=== PATIENT | male | born 1980 | race Caucasian/White ===

== ENCOUNTER 2023-03-26 08:47 | Inpatient (IN) | payer MEDICAID, SELFPAY ==
[2023-03-26] VITALS (37 sets, daily range): BP systolic 120–166; BP diastolic 81–119; PULSE 120–142; RESP 16–26; TEMP 36.2–37; O2SAT 93–98; BMI 32.6; BMI 32.8
--- NOTE | 2023-03-26 09:13 | ED.SOB ---
HPI - SOB/Dyspnea General Time Seen by Provider: 09:13 Date Seen: 03/26/23 Chief Complaint: Shortness of Breath/Dyspnea Stated Complaint: numbness waist down / shortness of breath Time Seen by Provider: 03/26/23 09:13 Source: patient and RN notes reviewed Mode of arrival: ambulatory Limitations: no limitations History of Present Illness HPI Narrative: Kannan is a very pleasant 42-year-old male with past history of heavy alcohol use frequent exposure to ticks who comes to the emergency room with increasing abdominal and lower extremity edema. Patient states that he awoke on Sunday morning which is 48 hours ago with swelling from his sternum down. He notes that his feet are 3 times the normal size and that his belly is quite bag. He has some discomfort around his ribcage. He gets extremely short of breath with any movement. Patient agrees that his has told him that he looks somewhat yellow. He has had no history of liver or kidney problems in the past. He denies chest pain but states that he is quite short of breath with any movement. He has not had fever or chills. He notes that he has been drinking quite a bit but urinating minimally. Denies pain with urination. This morning he started experiencing some diarrhea. He notes that occasionally has a beer but 3 years ago he was drinking heavily. Never experienced any withdrawal symptoms or seizure per his report. Related Data Home Medications Medication Instructions Recorded Confirmed No Known Home Medications 03/26/23 03/26/23 Allergies Allergy/AdvReac Type Severity Reaction Status Date / Time erythromycin base Allergy Mild full body Verified 03/26/23 13:39 hives,rashes Review of Systems Status of ROS: Reports: 10 or more systems reviewed and unremarkable except as noted in History and below Const: Reports: fatigue; Denies: fever or chills Eyes: Denies: change in vision ENMT: Denies: neck pain, difficulty swallowing or hoarseness Cardio: Reports: swelling of feet/ankles and shortness of breath with exertion; Denies: chest pain or palpitations Resp: Reports: shortness of breath; Denies: cough GI: Reports: abdominal pain (Tightness), nausea and diarrhea; Denies: vomiting or difficulty swallowing : Reports: decreased urine ouput; Denies: painful urination Musculo: Reports: back pain and extremity swelling; Denies: neck pain Integ/Breast: Denies: rash Neuro: Denies: headache or numbness in extremities Endo: Reports: fatigue [facility] Medical History (Updated 03/26/23 @ 14:57 by Rocky Dorsey MD) Hyponatremia ?E87.1 - Hypo-osmolality and hyponatremia (ICD-10) Alcohol use disorder ?F10.90 - Alcohol use, unspecified, uncomplicated (ICD-10) Elevated blood pressure reading ?R03.0 - Elevated blood-pressure reading, without diagnosis of hypertension (ICD-10) History of alcohol abuse ?F10.11 - Alcohol abuse, in remission (ICD-10) Surgical History (Updated 03/26/23 @ 14:04 by Charissa Hernandez MD) No history of previous surgery Family History (Updated 03/26/23 @ 14:46 by Rocky Dorsey MD) Other Cardiovascular disease Social History (Updated 03/26/23 @ 14:47 by Rocky Dorsey MD) Narrative: He lives with his and 2 children, ages 17 and 15, in [place]. 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 This spring he gave up on the physical labor of [employer] and lawn care. He does not smoke. He reports that formally he was a heavy consumer of alcohol and this became a problem for him so he quit 3 years ago. Some uncertainty as to when he resumed drinking and how much he resumed drinking in the past year What is your current living situation?: I presently have a place to live Problems where you live: no known problems Problems where you live details: NA In the past 12 months, utilities in danger of being shut off: no In the past 12 mos, have been you worried that your food would run out before you had money to buy more?: never true In the past 12 mos, the food you bought just didn't last and you didn't have money to buy more?: never true Highest level of school completed/degree received: some college, no degree Smoking Status: Never smoker How often do you have a drink containing alcohol: 2-3 times a week Alcohol type: other Alcohol type details: bud zero (no alcohol content) How many standard drinks containing alcohol do you have on a typical day: 1 or 2 How often do you have six or more drinks on one occasion: Never AUDIT-C Alcohol total score: 3 Non-prescribed substance use: denies use How often does anyone, including family, friends and others, physically hurt you: never How often does anyone, including family, friends and others, insult or talk down to you: never How often does anyone, including family, friends and others, threaten you with harm: never How often does anyone, including family, friends and others, scream or curse at you: never Exam Narrative: Exam Narrative: Kannan is a very pleasant gentleman. He is in room 3. Sinus tachycardia is noted on the monitor. He is oxygenating well. Head is atraumatic normocephalic. Patient has scleral icterus and yellowing of the skin. EOM is full and pupils are equal round reactive. Oral cavity with moist mucous membranes. Neck is supple without lymphadenopathy. Heart with a tachycardic rate but normal rhythm. Lungs are with decreased sounds in the bases bilaterally. Abdomen is protrude warrant it is firm. No significant tenderness. Lower extremities with 3+ edema. No erythema noted. Const: Vital Signs, click to edit/add: Vital Signs - 24 hr 03/26/23 08:54 03/26/23 09:52 03/26/23 10:00 Temperature 97.1 F L Pulse Rate 131 H 127 H Pulse Rate [Right Pulse Oximeter] 134 H Respiratory Rate 26 H Blood Pressure Blood Pressure [Le ft Arm] Blood Pressure [Ri ght Upper Arm] 151/102 H Pulse Oximetry 96 96 96 Oxygen Delivery Me thod Room Air 03/26/23 10:02 03/26/23 10:15 03/26/23 10:21 Temperature Pulse Rate 127 H 131 H 129 H Pulse Rate [Right Pulse Oximeter] Respiratory Rate Blood Pressure 160/115 H 160/115 H Blood Pressure [Le ft Arm] Blood Pressure [Ri ght Upper Arm] Pulse Oximetry 95 95 93 Oxygen Delivery Me thod 03/26/23 10:30 03/26/23 10:42 03/26/23 10:45 Temperature Pulse Rate 126 H 130 H 127 H Pulse Rate [Right Pulse Oximeter] Respiratory Rate Blood Pressure 166/119 H Blood Pressure [Le ft Arm] Blood Pressure [Ri ght Upper Arm] Pulse Oximetry 95 96 96 Oxygen Delivery Me thod 03/26/23 11:09 03/26/23 11:13 08/21/23 11:15 Temperature Pulse Rate 125 H 128 H Pulse Rate [Right Pulse Oximeter] Respiratory Rate Blood Pressure 154/113 H Blood Pressure [Le ft Arm] Blood Pressure [Ri ght Upper Arm] Pulse Oximetry 97 96 Oxygen Delivery Me thod 03/26/23 11:21 03/26/23 11:32 03/26/23 11:45 Temperature Pulse Rate 131 H 142 H 137 H Pulse Rate [Right Pulse Oximeter] Respiratory Rate Blood Pressure 160/113 H Blood Pressure [Le ft Arm] Blood Pressure [Ri ght Upper Arm] Pulse Oximetry 95 97 96 Oxygen Delivery Me thod 03/26/23 11:46 03/26/23 12:00 03/26/23 12:04 Temperature Pulse Rate 138 H 133 H 139 H Pulse Rate [Right Pulse Oximeter] Respiratory Rate Blood Pressure 151/105 H Blood Pressure [Le ft Arm] Blood Pressure [Ri ght Upper Arm] Pulse Oximetry 96 98 95 Oxygen Delivery Me thod 03/26/23 12:15 03/26/23 12:25 03/26/23 12:30 Temperature Pulse Rate 137 H 142 H 137 H Pulse Rate [Right Pulse Oximeter] Respiratory Rate Blood Pressure Blood Pressure [Le ft Arm] Blood Pressure [Ri ght Upper Arm] Pulse Oximetry 97 96 96 Oxygen Delivery Me thod 03/26/23 12:41 03/26/23 12:45 03/26/23 13:00 Temperature Pulse Rate 135 H 130 H 136 H Pulse Rate [Right Pulse Oximeter] Respiratory Rate Blood Pressure 137/105 H Blood Pressure [Le ft Arm] Blood Pressure [Ri ght Upper Arm] Pulse Oximetry 94 96 96 Oxygen Delivery Me thod 03/26/23 13:05 03/26/23 13:15 03/26/23 13:25 Temperature Pulse Rate 138 H 138 H 139 H Pulse Rate [Right Pulse Oximeter] Respiratory Rate Blood Pressure Blood Pressure [Le ft Arm] Blood Pressure [Ri ght Upper Arm] Pulse Oximetry 96 96 96 Oxygen Delivery Me thod 03/26/23 13:30 03/26/23 13:44 03/26/23 13:45 Temperature Pulse Rate 138 H 132 H 133 H Pulse Rate [Right Pulse Oximeter] Respiratory Rate Blood Pressure Blood Pressure [Le ft Arm] Blood Pressure [Ri ght Upper Arm] Pulse Oximetry 96 95 95 Oxygen Delivery Me thod 03/26/23 14:00 03/26/23 14:37 03/26/23 15:00 Temperature 98.1 F 98.1 F Pulse Rate 135 H Pulse Rate [Right Pulse Oximeter] 140 H 140 H Respiratory Rate 18 18 Blood Pressure Blood Pressure [Le ft Arm] 130/99 H 130/99 H Blood Pressure [Ri ght Upper Arm] Pulse Oximetry 94 97 97 Oxygen Delivery Me thod Room Air Room Air Documenting provider has reviewed patient's vital signs: yes Course Course Hospital Course: Patient is worrisome for hepatic and renal failure. At this time will place IV and labs will be checked to include CBC, comprehensive, direct bilirubin, CRP, urinalysis. Patient will be continued on the monitoring tech. Nursing staff has also added Lyme and tick panel. Reevaluation(s) Reevaluation #1: Patient noted to have reassuring creatinine but markedly elevated liver function tests. Will give patient 80 mg IV Lasix and ordered CT chest abdomen pelvis CT with contrast. Reevaluation #2: Patient noted to have 4 quadrant ascites and cirrhosis of the liver. No other masses are noted. Left-sided pleural effusion. At this time is consult id to obtain sample of ascites. Thereafter will start ceftriaxone. Patient noted to be urinating and it seems to actually have improvement of lower extremity edema. His heart rate and blood pressure remain elevated and although he is mentating normally this may be an aspect of alcohol withdrawal and therefore will give him Ativan 1 mg IV. Vital Signs Vital signs: Initial Vital Signs Respiratory Effort Normal, Spontaneous, Short of Breath 03/26/23 08:50 Respiratory Depth Normal 03/26/23 08:50 Vital Signs Temperature 97.1 F L 03/26/23 08:54 Pulse Rate 134 H 03/26/23 08:54 Respiratory Rate 26 H 03/26/23 08:54 Blood Pressure 151/102 H 03/26/23 08:54 Pulse Oximetry 96 03/26/23 08:54 Oxygen Delivery Method Room Air 03/26/23 08:54 Temperature 98.1 F 03/26/23 16:17 Pulse Rate 140 H 03/26/23 16:17 Respiratory Rate 18 03/26/23 16:17 Blood Pressure 130/99 H 03/26/23 16:17 Pulse Oximetry 97 03/26/23 16:17 Oxygen Delivery Method Room Air 03/26/23 16:17 MDM - SOB/Dyspnea MDM Narrative Medical decision making narrative: 1. Alcoholic hepatitis-liver function tests are elevated and direct bilirubin is as well. Patient gives variable account of his alcohol use over the past couple years but I think that we do understand that it is likely been high. He does state that he had 8-10 alcoholic drinks every day last week. Patient maintains an elevated heart rate as well as high blood pressure. Will given 1 mg of Ativan as I am concerned this may be wrapped representing some withdrawal. Patient is jaundiced at this time. 2. Abdominal ascites-elevated white count of greater than 19,000. No significant abdominal discomfort and patient does not present with a fever but of course bacterial peritonitis is of concern. Surgical consult with who was able to obtain a small sample. 2 g of ceftriaxone given in the emergency room. Cell count, Gram stain, culture, LDH, amylase, protein, glucose currently pending. 3. Lower extremity edema-likely from hepatitis. Patient is given Lasix 80 mg IV. Has been urinating. 4. Disposition-admit to [facility] under the care of Dr. Kenneth Dorsey, hospitalist Lab Data Attestation: I reviewed the patient's lab results. Labs: Lab Results 03/26/23 03/26/23 03/26/23 Range/Units 09:16 09:22 12:52 WBC 19.20 H (4.50-11.00) K/uL RBC 3.41 L (4.30-5.90) m/uL Hgb 12.7 L (13.5-17.5) gm/dL Hct 36.6 L (37.0-53.0) % MCV 107 H (80-100) fL MCH 37 H (26-34) pg MCHC 35 (32-36) gm/dL RDW Coeff of Ellen 16.5 H (11.5-15.5) % Plt Count 621 H (140-440) K/uL Neut % (Auto) 86.0 H (42.0-72.0) % Lymph % (Auto) 6.1 L (20-44) % [place] % (Auto) 5.8 (0.0-11.0) % Eos % (Auto) 0.1 (0.0-7.0) % Baso % (Auto) 0.2 (0.0-3.0) % Neut # (Auto) 16.50 H (1.7-7.0) K/uL Lymph # (Auto) 1.20 (0.90-2.90) K/uL [place] # (Auto) 1.10 H (0.00-0.90) K/UL Eos # (Auto) 0.00 (0.00-0.50) K/uL Baso # (Auto) 0.00 (0.00-0.30) K/uL Abs Immat Gran (auto) 0.30 (0.00-0.30) K/uL Imm/Tot Granulo (auto) 1.8 % Sodium 127 L (135-149) mmol/L Potassium 4.1 (3.6-5.1) mmol/L Chloride 91 L (96-114) mmol/L Carbon Dioxide 23 (20-32) mmol/L Anion Gap 13 (7-15) mEq/L BUN 6 (5-24) mg/dL Creatinine 0.7 (0.5-1.5) mg/dL Estimated Creat Clear 162.63 Estimated GFR 117 ml/min Glucose 100 (60-115) mg/dL Lactate 3.0 H (0.5-1.9) mmol/L Magnesium 1.8 (1.5-2.6) mg/dL Total Bilirubin 9.3 H (0.1-1.5) mg/dL Direct Bilirubin 7.6 H (0.0-0.5) mg/dL AST 419 H (12-35) U/L ALT 104 H (4-50) U/L Alkaline Phosphatase 551 H (40-150) U/L C-Reactive Protein 7.7 H (0.5-1.0) mg/dL NT-Pro-B Natriuret Pep 193 pg/mL Total Protein 6.8 (6.0-8.3) g/dL Albumin 3.2 L (3.3-5.0) g/dL Lipase 85 (23-300) U/L Fluid Volume Fluid Color Fluid Appearance Fluid WBC Cells/uL Fluid RBC Cells/uL Fluid Polynuclear WBCs % Fluid Mononuclear WBCs % Fluid Glucose mg/dL Fluid Total Protein gm/dL Fluid Albumin gm/dL Fluid LDH U/L Fluid Amylase U/L Ur Drug Screen Comment Ethyl Alcohol < 0.01 L (0.01-0.03) % Lab Acknowledgement POC Troponin I 0.01 (0.01-0.04) ng/ml 03/26/23 03/26/23 03/26/23 Range/Units 13:05 13:45 15:30 WBC (4.50-11.00) K/uL RBC (4.30-5.90) m/uL Hgb (13.5-17.5) gm/dL Hct (37.0-53.0) % MCV (80-100) fL MCH (26-34) pg MCHC (32-36) gm/dL RDW Coeff of Ellen (11.5-15.5) % Plt Count (140-440) K/uL Neut % (Auto) (42.0-72.0) % Lymph % (Auto) (20-44) % [place] % (Auto) (0.0-11.0) % Eos % (Auto) (0.0-7.0) % Baso % (Auto) (0.0-3.0) % Neut # (Auto) (1.7-7.0) K/uL Lymph # (Auto) (0.90-2.90) K/uL [place] # (Auto) (0.00-0.90) K/UL Eos # (Auto) (0.00-0.50) K/uL Baso # (Auto) (0.00-0.30) K/uL Abs Immat Gran (auto) (0.00-0.30) K/uL Imm/Tot Granulo (auto) % Sodium (135-149) mmol/L Potassium (3.6-5.1) mmol/L Chloride (96-114) mmol/L Carbon Dioxide (20-32) mmol/L Anion Gap (7-15) mEq/L BUN (5-24) mg/dL Creatinine (0.5-1.5) mg/dL Estimated Creat Clear Estimated GFR ml/min Glucose (60-115) mg/dL Lactate (0.5-1.9) mmol/L Magnesium (1.5-2.6) mg/dL Total Bilirubin (0.1-1.5) mg/dL Direct Bilirubin (0.0-0.5) mg/dL AST (12-35) U/L ALT (4-50) U/L Alkaline Phosphatase (40-150) U/L C-Reactive Protein (0.5-1.0) mg/dL NT-Pro-B Natriuret Pep pg/mL Total Protein (6.0-8.3) g/dL Albumin (3.3-5.0) g/dL Lipase (23-300) U/L Fluid Volume 9 Fluid Color Xanthochromic A Fluid Appearance Cloudy A Fluid WBC 100 Cells/uL Fluid RBC 4000 Cells/uL Fluid Polynuclear WBCs 31 % Fluid Mononuclear WBCs 69 % Fluid Glucose 91 mg/dL Fluid Total Protein < 2.0 gm/dL Fluid Albumin < 1.0 gm/dL Fluid LDH 81 U/L Fluid Amylase < 30 U/L Ur Drug Screen Comment See Note Ethyl Alcohol (0.01-0.03) % Lab Acknowledgement Test Added POC Troponin I (0.01-0.04) ng/ml Imaging Data CT Chest/Ab/Pelvis: Attestation: I have reviewed the pertinent imaging results. Radiologist's impression: ungs and pleura: Small dependent low-density left pleural effusion associated with compressive atelectasis of the posterior segment of the left lower lobe. No effusions, thickening, or pneumothorax. Heart and vasculature: Heart size is normal. Thoracic aorta and pulmonary artery are normal in caliber. Lymph node/mediastinum: No mediastinal, hilar, or axillary adenopathy. Chest wall: Normal. Bones: No suspicious bone lesions. ABDOMEN AND PELVIS: Liver: Hepatomegaly. Diffuse low attenuation of the hepatic parenchyma consistent with steatosis. Differential diagnostic considerations include early cirrhosis. No suspicious focal lesion. Gallbladder and bile ducts: Unremarkable. Pancreas: Unremarkable. Spleen: Normal in caliber. No masses. Calcified splenic granuloma and accessory splenule. Adrenal glands: Unremarkable. No masses. Kidneys: Normal in caliber. No suspicious masses. GI tract: Normal in caliber and appearance. No sign of mass or inflammation. Vasculature: Unremarkable. Mesenteric arteries are patent. Lymph nodes: Clustered common hepatic and periportal lymph nodes are consistent with nonspecific lymphadenopathy. Omentum/peritoneum/retroperitoneum/abdominal wall: Small volume four-quadrant abdominopelvic ascites. Direct fat and fluid containing right inguinal hernia. Pelvic organs: Unremarkable. Bones: No suspicious bone lesions. IMPRESSION: Hepatomegaly, diffuse hepatic steatosis, small volume four-quadrant ascites. These findings may represent early cirrhosis. No focal liver lesion is identified. Incidental findings described above including a small direct fat and fluid containing right inguinal hernia. Fluid within the hernia sac is considered to be due to communication between the hernia sac and the ascites in the abdominopelvic peritoneal space. ECG Data Attestation: I personally reviewed and interpreted this ECG as follows: ECG interpretation date: 03/26/23 Interpretation: By my read EKG shows sinus tachycardia at 0124. I do not note any acute ST or T-wave changes. Discharge Plan Discharge Patient Disposition: Admitted As Inpatient
[2023-03-26 09:30] LABS: Troponin, Point-of-Care* 0.01 ng/ml (0.01-0.04)
[2023-03-26 09:45] LABS: Basophils Percent Auto 0.2 % (0.0-3.0); Eosinophils Percent Auto 0.1 % (0.0-7.0); Hematocrit 36.6 % (37.0-53.0); Hemoglobin* 12.7 gm/dL (13.5-17.5); Immature Granulocytes Pct Auto 1.8 %; Lymphocytes Percent Auto 6.1 % (20-44); Mean Corpuscular HGB Conc 35 gm/dL (32-36); Mean Corpuscular Hemoglobin 37 pg (26-34); Mean Corpuscular Volume 107 fL (80-100); Monocytes Percent Auto 5.8 % (0.0-11.0); Platelet Count* 621 K/uL (140-440); RDW Coefficient of Variation % 16.5 % (11.5-15.5); Red Blood Count 3.41 m/uL (4.30-5.90)
[2023-03-26 09:47] LABS: Slide Review Reflex No
[2023-03-26 09:59] LABS: Albumin* 3.2 g/dL (3.3-5.0); Chloride* 91 mmol/L (96-114); Sodium* 127 mmol/L (135-149)
[2023-03-26 10:00] LABS: Potassium* 4.1 mmol/L (3.6-5.1)
[2023-03-26 10:01] LABS: Creatinine* 0.7 mg/dL (0.5-1.5); Est. Creatinine Clearance* 162.63; Estimated Glomerular Filt Rate 117 ml/min
[2023-03-26 10:02] LABS: Alkaline Phosphatase* 551 U/L (40-150); Aspartate Amino Transferase* 419 U/L (12-35); Bilirubin Direct* 7.6 mg/dL (0.0-0.5); Bilirubin Total* 9.3 mg/dL (0.1-1.5); Blood Urea Nitrogen* 6 mg/dL (5-24); Carbon Dioxide* 23 mmol/L (20-32); Lipase* 85 U/L (23-300); Total Protein* 6.8 g/dL (6.0-8.3)
[2023-03-26 10:03] LABS: Alanine Aminotransferase* 104 U/L (4-50); Glucose* 100 mg/dL (60-115)
[2023-03-26 10:05] LABS: C Reactive Protein* 7.7 mg/dL (0.5-1.0)
[2023-03-26 10:10] LABS: Ethanol* < 0.01 % (0.01-0.03)
--- NOTE | 2023-03-26 10:30 | CRLHL7_ITS ---
For Patients: As a result of the Century Cures Act, medical imaging exams and procedure reports are released immediately into your electronic medical record. You may view this report before your referring provider. If you have questions, please contact your health care provider. INDICATION: Jaundice, abdominal distention. Shortness of breath. TECHNIQUE: CT chest, abdomen and pelvis acquired with 128 cc Isovue 370 IV contrast. COMPARISON: None. FINDINGS: CHEST Lungs and pleura: Small dependent low-density left pleural effusion associated with compressive atelectasis of the posterior segment of the left lower lobe. No effusions, thickening, or pneumothorax. Heart and vasculature: Heart size is normal. Thoracic aorta and pulmonary artery are normal in caliber. Lymph node/mediastinum: No mediastinal, hilar, or axillary adenopathy. Chest wall: Normal. Bones: No suspicious bone lesions. ABDOMEN AND PELVIS: Liver: Hepatomegaly. Diffuse low attenuation of the hepatic parenchyma consistent with steatosis. Differential diagnostic considerations include early cirrhosis. No suspicious focal lesion. Gallbladder and bile ducts: Unremarkable. Pancreas: Unremarkable. Spleen: Normal in caliber. No masses. Calcified splenic granuloma and accessory splenule. Adrenal glands: Unremarkable. No masses. Kidneys: Normal in caliber. No suspicious masses. GI tract: Normal in caliber and appearance. No sign of mass or inflammation. Vasculature: Unremarkable. Mesenteric arteries are patent. Lymph nodes: Clustered common hepatic and periportal lymph nodes are consistent with nonspecific lymphadenopathy. Omentum/peritoneum/retroperitoneum/abdominal wall: Small volume four-quadrant abdominopelvic ascites. Direct fat and fluid containing right inguinal hernia. Pelvic organs: Unremarkable. Bones: No suspicious bone lesions. IMPRESSION: Hepatomegaly, diffuse hepatic steatosis, small volume four-quadrant ascites. These findings may represent early cirrhosis. No focal liver lesion is identified. Incidental findings described above including a small direct fat and fluid containing right inguinal hernia. Fluid within the hernia sac is considered to be due to communication between the hernia sac and the ascites in the abdominopelvic peritoneal space. Please note that all CT scans at this facility use dose modulation, iterative reconstruction, and/or weight-based dosing when appropriate to reduce radiation dose to as low as reasonably achievable. Dictated by Jaime Simmons MD @ 03/26/2023 11:52:39 AM (Electronically Signed)
[2023-03-26] MEDS: FUROSEMIDE 10 MG/ML inj 80 MG IVP (11:13)
[2023-03-26 11:21] LABS: Anion Gap 13 mEq/L (7-15)
[2023-03-26] MEDS: LORazepam 2 MG/ML inj 1 MG IVP (12:50)
--- NOTE | 2023-03-26 13:19 | P.GSCN_ITS ---
History of Present Illness Consult details Date Seen: 03/26/23 Consult date: 03/26/23 Narrative: The patient is a 42-year-old male who presents to the emergency department with lower extremity edema and abdominal swelling which has been going on for 2 days. He states that he woke up on Sunday morning with swollen feet. He noted that his stomach was swollen and hard. He had no appetite or energy. He states that it was hard to breathe and so he came in to be seen. He has a history of heavy alcohol use but states that he is not drinking anymore. He has never had anything like this before. He has again no appetite. He had diarrhea today but had been having normal bowel movements up until now. He has not been eating since Sunday, only drinking water. [facility] Medical History (Updated 03/26/23 @ 14:04 by Charissa Hernandez MD) History of alcohol abuse ?F10.11 - Alcohol abuse, in remission (ICD-10) Surgical History (Updated 03/26/23 @ 14:04 by Charissa Hernandez MD) No history of previous surgery Meds Home Medications and Allergies Home Medications Medication Instructions Recorded Confirmed Type No Known Home Medications 03/26/23 03/26/23 History Allergies Allergy/AdvReac Type Severity Reaction Status Date / Time erythromycin base Allergy Mild full body Verified 03/26/23 13:39 hives,rashes Exam Narrative: Exam Narrative: General: No acute distress HEENT: Scleral icterus noted CV: Tachycardic but regular Respiratory: Breathing appears nonlabored Abdomen: Protuberant. No scars. Nontender to palpation. Extremities: Bilateral lower extremities with pitting edema Const: Vital Signs, click to edit/add: Vital Signs - 24 hr 03/26/23 08:54 03/26/23 09:52 03/26/23 10:00 Temperature 97.1 F L Pulse Rate 131 H 127 H Pulse Rate [Right Pulse Oximeter] 134 H Respiratory Rate 26 H Blood Pressure Blood Pressure [Ri ght Upper Arm] 151/102 H Pulse Oximetry 96 96 96 Oxygen Delivery Me thod Room Air 03/26/23 10:02 03/26/23 10:15 03/26/23 10:21 Temperature Pulse Rate 127 H 131 H 129 H Pulse Rate [Right Pulse Oximeter] Respiratory Rate Blood Pressure 160/115 H 160/115 H Blood Pressure [Ri ght Upper Arm] Pulse Oximetry 95 95 93 Oxygen Delivery Me thod 03/26/23 10:30 03/26/23 10:42 03/26/23 10:45 Temperature Pulse Rate 126 H 130 H 127 H Pulse Rate [Right Pulse Oximeter] Respiratory Rate Blood Pressure 166/119 H Blood Pressure [Ri ght Upper Arm] Pulse Oximetry 95 96 96 Oxygen Delivery Me thod 03/26/23 11:09 03/26/23 11:13 03/26/23 11:15 Temperature Pulse Rate 125 H 128 H Pulse Rate [Right Pulse Oximeter] Respiratory Rate Blood Pressure 154/113 H Blood Pressure [Ri ght Upper Arm] Pulse Oximetry 97 96 Oxygen Delivery Me thod 03/26/23 11:21 03/26/23 11:32 03/26/23 11:45 Temperature Pulse Rate 131 H 142 H 137 H Pulse Rate [Right Pulse Oximeter] Respiratory Rate Blood Pressure 160/113 H Blood Pressure [Ri ght Upper Arm] Pulse Oximetry 95 97 96 Oxygen Delivery Me thod 03/26/23 11:46 03/26/23 12:00 03/26/23 12:04 Temperature Pulse Rate 138 H 133 H 139 H Pulse Rate [Right Pulse Oximeter] Respiratory Rate Blood Pressure 151/105 H Blood Pressure [Ri ght Upper Arm] Pulse Oximetry 96 98 95 Oxygen Delivery Me thod 03/26/23 12:15 03/26/23 12:25 03/26/23 12:30 Temperature Pulse Rate 137 H 142 H 137 H Pulse Rate [Right Pulse Oximeter] Respiratory Rate Blood Pressure Blood Pressure [Ri ght Upper Arm] Pulse Oximetry 97 96 96 Oxygen Delivery Me thod 03/26/23 12:41 03/26/23 12:45 03/26/23 13:00 Temperature Pulse Rate 135 H 130 H 136 H Pulse Rate [Right Pulse Oximeter] Respiratory Rate Blood Pressure 137/105 H Blood Pressure [Ri ght Upper Arm] Pulse Oximetry 94 96 96 Oxygen Delivery Me thod 03/26/23 13:05 03/26/23 13:15 Temperature Pulse Rate 138 H 138 H Pulse Rate [Right Pulse Oximeter] Respiratory Rate Blood Pressure Blood Pressure [Ri ght Upper Arm] Pulse Oximetry 96 96 Oxygen Delivery Me thod Results Labs Labs: Abnormal lab results 03/26/23 03/26/23 Range/Units 09:16 12:52 WBC 19.20 H (4.50-11.00) K/uL RBC 3.41 L (4.30-5.90) m/uL Hgb 12.7 L (13.5-17.5) gm/dL Hct 36.6 L (37.0-53.0) % MCV 107 H (80-100) fL MCH 37 H (26-34) pg RDW Coeff of Ellen 16.5 H (11.5-15.5) % Plt Count 621 H (140-440) K/uL Neut % (Auto) 86.0 H (42.0-72.0) % Lymph % (Auto) 6.1 L (20-44) % Neut # (Auto) 16.50 H (1.7-7.0) K/uL [place] # (Auto) 1.10 H (0.00-0.90) K/UL Sodium 127 L (135-149) mmol/L Chloride 91 L (96-114) mmol/L Lactate 3.0 H (0.5-1.9) mmol/L Total Bilirubin 9.3 H (0.1-1.5) mg/dL Direct Bilirubin 7.6 H (0.0-0.5) mg/dL AST 419 H (12-35) U/L ALT 104 H (4-50) U/L Alkaline Phosphatase 551 H (40-150) U/L C-Reactive Protein 7.7 H (0.5-1.0) mg/dL Albumin 3.2 L (3.3-5.0) g/dL Ethyl Alcohol < 0.01 L (0.01-0.03) % Diabetes panel 03/26/23 Range/Units 09:16 Sodium 127 L (135-149) mmol/L Potassium 4.1 (3.6-5.1) mmol/L Chloride 91 L (96-114) mmol/L Carbon Dioxide 23 (20-32) mmol/L BUN 6 (5-24) mg/dL Creatinine 0.7 (0.5-1.5) mg/dL Glucose 100 (60-115) mg/dL AST 419 H (12-35) U/L ALT 104 H (4-50) U/L Alkaline Phosphatase 551 H (40-150) U/L Total Protein 6.8 (6.0-8.3) g/dL Albumin 3.2 L (3.3-5.0) g/dL Calcium panel 03/26/23 Range/Units 09:16 Albumin 3.2 L (3.3-5.0) g/dL Pituitary panel 03/26/23 Range/Units 09:16 Sodium 127 L (135-149) mmol/L Potassium 4.1 (3.6-5.1) mmol/L Chloride 91 L (96-114) mmol/L Carbon Dioxide 23 (20-32) mmol/L BUN 6 (5-24) mg/dL Creatinine 0.7 (0.5-1.5) mg/dL Glucose 100 (60-115) mg/dL Adrenal panel 03/26/23 Range/Units 09:16 Sodium 127 L (135-149) mmol/L Potassium 4.1 (3.6-5.1) mmol/L Chloride 91 L (96-114) mmol/L Carbon Dioxide 23 (20-32) mmol/L BUN 6 (5-24) mg/dL Creatinine 0.7 (0.5-1.5) mg/dL Glucose 100 (60-115) mg/dL Total Bilirubin 9.3 H (0.1-1.5) mg/dL AST 419 H (12-35) U/L ALT 104 H (4-50) U/L Alkaline Phosphatase 551 H (40-150) U/L Total Protein 6.8 (6.0-8.3) g/dL Albumin 3.2 L (3.3-5.0) g/dL All other labs normal. Imaging Additional studies: IMPRESSION: Hepatomegaly, diffuse hepatic steatosis, small volume four-quadrant ascites. These findings may represent early cirrhosis. No focal liver lesion is identified. Incidental findings described above including a small direct fat and fluid containing right inguinal hernia. Fluid within the hernia sac is considered to be due to communication between the hernia sac and the ascites in the abdominopelvic peritoneal space. Please note that all CT scans at this facility use dose modulation, iterative reconstruction, and/or weight-based dosing when appropriate to reduce radiation dose to as low as reasonably achievable. Dictated by Jaime Simmons MD @ 03/26/2023 11:52:39 AM Assessment and Plan Assessment and plan (1) Ascites: Status: Acute (2) Liver failure: Status: Acute (3) History of alcohol abuse: Status: Acute Plan The patient is a 42-year-old male with new onset liver failure. Septic type picture concerning for spontaneous bacterial peritonitis. He has a very small window for paracentesis. This was performed today with ultrasound guidance. Fluid sent for culture and cytology. Patient to be admitted to hospitalist for further cares. General Surgery Procedures Paracentesis Time out performed: Yes Imaging guidance used: Yes Indication: possible spontaneous bacterial peritonitis Procedure: diagnostic paracentesis Location: RLQ Local anesthetic used: lidocaine 1% Amount of anesthesia used (ml): 5 Bedside ultrasound used: yes, real-time guidance Preparation: sterile prep and drape Amount of fluid obtained (ml): 10 Fluid: clear and sent to lab for analysis Size of needle used: 23 Post procedure exam: awake, alert Patient tolerated procedure: well Complications: none Additional comments: Only a small pocket was noted in the right lower quadrant. Real-time ultrasound was used to watch the needle advance through the subcutaneous tissue into the fluid pocket. 10 mL of fluid was aspirated. The procedure was then terminated.
[2023-03-26 13:34] LABS: INR 1.04 (0.91-1.10); Prothrombin Time 14.2 Seconds
[2023-03-26 13:40] LABS: Magnesium* 1.8 mg/dL (1.5-2.6)
[2023-03-26] MEDS: cefTRIAXone 2 GM in 0.9 % SODIUM CHLORIDE Mini-bag 100 ML IVPB (14:22)
--- NOTE | 2023-03-26 14:31 | PM.IMHP1 ---
Hospitalist- H&P: HPI History of Present Illness Date Seen: 03/26/23 Chief complaint: numbness waist down / shortness of breath Narrative: Kannan Wei is a 42 year old male presents to the emergency room with acute onset of abdominal distension, jaundice and lower extremity edema for the last 2 days. Patient reports he was in his usual state of health until he woke up Sunday morning, 2 days ago. He noted had quite a bit of abdominal distension and both legs were very swollen. He denies pain in his legs or abdomen but does report a pressure sensation or fullness. He has not had any vomiting. He has not had anything to eat since Sunday evening. He is drinking some fluids however. He has not had a fever. He reports his bowels are normal without diarrhea, constipation, melena, hematochezia. He also reports worsening dyspnea with any exertion and very poor exercise tolerance. Not having exertional chest pain. His has noted that his skin is turning yellow. He has a history of heavy alcohol use up until 3 years ago. At that time he reports he quit drinking completely. He told the emergency room physician that he has been abstinent until recently he has picked up heavy drinking again. He has had no alcohol to drink since Sunday. He reported to me that he has been drinking moderately, 2-3 drinks per day for the last year. He told me he has not been drinking heavily recently. He denies a history of alcohol withdrawal. He has had no other history of a liver disease. No history of DVT. No history of heart failure or heart disease. He has mild asthma but no other history of lung disease. No history of gastrointestinal or abdominal problems. No urinary problems. Review of Systems Narrative: Patient reports that he has had progressive fatigue and weakness for some time. He works in [employer] and gave up doing the physical work of [employer] this spring because it was too hard. Reports no other recent illness except as noted above. He has not been hospitalized. He has had a history of high blood pressure but has not been treated for it. [facility] Medical History (Updated 03/26/23 @ 14:57 by Rocky Dorsey MD) Hyponatremia ?E87.1 - Hypo-osmolality and hyponatremia (ICD-10) Alcohol use disorder ?F10.90 - Alcohol use, unspecified, uncomplicated (ICD-10) Elevated blood pressure reading ?R03.0 - Elevated blood-pressure reading, without diagnosis of hypertension (ICD-10) History of alcohol abuse ?F10.11 - Alcohol abuse, in remission (ICD-10) Surgical History (Updated 03/26/23 @ 14:04 by Charissa Hernandez MD) No history of previous surgery Family History (Updated 03/26/23 @ 14:46 by Rocky Dorsey MD) Other Cardiovascular disease Social History (Updated 03/26/23 @ 14:47 by Rocky Dorsey MD) Narrative: He lives with his and 2 children, ages 17 and 15, in [place]. 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 This spring he gave up on the physical labor of [employer] and lawn care. He does not smoke. He reports that formally he was a heavy consumer of alcohol and this became a problem for him so he quit 3 years ago. Some uncertainty as to when he resumed drinking and how much he resumed drinking in the past year Meds Home Medications and Allergies Home Medications Medication Instructions Recorded Confirmed Type No Known Home Medications 03/26/23 03/26/23 History Home Medication Comments: Occasionally takes a baby aspirin. Specifically denies use of acetaminophen Allergies Allergy/AdvReac Type Severity Reaction Status Date / Time erythromycin base Allergy Mild full body Verified 03/26/23 13:39 hives,rashes Exam Narrative: Exam Narrative: He is alert and appears in no distress. He has mild jaundice. Mild scleral icterus. Extraocular movements are full. No nystagmus. Oropharynx is normal. Neck is supple without mass or adenopathy. Respirations are clear to auscultation. Cardiovascular: S1, S2, regular tachycardia. Abdomen is moderately distended, soft without tenderness or mass. Bowel sounds are present. External genitalia normal. Upper extremities are normal with good perfusion and pulses and warm to touch. He has a very mild fine tremor present in his left and possibly right hands. He moves all 4 extremities well. On inspection I do note that he has moderate atrophy of the skeletal muscles involving his upper back, shoulders and arms. Lower extremities with 3+ pitting edema bilaterally this edema extends up both legs and is symmetric. No skin breakdown redness or tenderness to palpation. Const: Vital Signs, click to edit/add: Vital Signs - 24 hr 03/26/23 08:54 03/26/23 09:52 03/26/23 10:00 Temperature 97.1 F L Pulse Rate 131 H 127 H Pulse Rate [Right Pulse Oximeter] 134 H Respiratory Rate 26 H Blood Pressure Blood Pressure [Ri ght Upper Arm] 151/102 H Pulse Oximetry 96 96 96 Oxygen Delivery Me thod Room Air 03/26/23 10:02 03/26/23 10:15 03/26/23 10:21 Temperature Pulse Rate 127 H 131 H 129 H Pulse Rate [Right Pulse Oximeter] Respiratory Rate Blood Pressure 160/115 H 160/115 H Blood Pressure [Ri ght Upper Arm] Pulse Oximetry 95 95 93 Oxygen Delivery Me thod 03/26/23 10:30 03/26/23 10:42 03/26/23 10:45 Temperature Pulse Rate 126 H 130 H 127 H Pulse Rate [Right Pulse Oximeter] Respiratory Rate Blood Pressure 166/119 H Blood Pressure [Ri ght Upper Arm] Pulse Oximetry 95 96 96 Oxygen Delivery Me thod 03/26/23 11:09 03/26/23 11:13 03/26/23 11:15 Temperature Pulse Rate 125 H 128 H Pulse Rate [Right Pulse Oximeter] Respiratory Rate Blood Pressure 154/113 H Blood Pressure [Ri ght Upper Arm] Pulse Oximetry 97 96 Oxygen Delivery Me thod 03/26/23 11:21 03/26/23 11:32 03/26/23 11:45 Temperature Pulse Rate 131 H 142 H 137 H Pulse Rate [Right Pulse Oximeter] Respiratory Rate Blood Pressure 160/113 H Blood Pressure [Ri ght Upper Arm] Pulse Oximetry 95 97 96 Oxygen Delivery Me thod 03/26/23 11:46 03/26/23 12:00 03/26/23 12:04 Temperature Pulse Rate 138 H 133 H 139 H Pulse Rate [Right Pulse Oximeter] Respiratory Rate Blood Pressure 151/105 H Blood Pressure [Ri ght Upper Arm] Pulse Oximetry 96 98 95 Oxygen Delivery Me thod 03/26/23 12:15 03/26/23 12:25 03/26/23 12:30 Temperature Pulse Rate 137 H 142 H 137 H Pulse Rate [Right Pulse Oximeter] Respiratory Rate Blood Pressure Blood Pressure [Ri ght Upper Arm] Pulse Oximetry 97 96 96 Oxygen Delivery Me thod 03/26/23 12:41 08/21/23 12:45 03/26/23 13:00 Temperature Pulse Rate 135 H 130 H 136 H Pulse Rate [Right Pulse Oximeter] Respiratory Rate Blood Pressure 137/105 H Blood Pressure [Ri ght Upper Arm] Pulse Oximetry 94 96 96 Oxygen Delivery Me thod 03/26/23 13:05 03/26/23 13:15 03/26/23 13:25 Temperature Pulse Rate 138 H 138 H 139 H Pulse Rate [Right Pulse Oximeter] Respiratory Rate Blood Pressure Blood Pressure [Ri ght Upper Arm] Pulse Oximetry 96 96 96 Oxygen Delivery Me thod 03/26/23 13:30 03/26/23 13:44 03/26/23 13:45 Temperature Pulse Rate 138 H 132 H 133 H Pulse Rate [Right Pulse Oximeter] Respiratory Rate Blood Pressure Blood Pressure [Ri ght Upper Arm] Pulse Oximetry 96 95 95 Oxygen Delivery Me thod 03/26/23 14:00 Temperature Pulse Rate 135 H Pulse Rate [Right Pulse Oximeter] Respiratory Rate Blood Pressure Blood Pressure [Ri ght Upper Arm] Pulse Oximetry 94 Oxygen Delivery Me thod Documenting provider has reviewed patient's vital signs: yes Hospitalist - H&P: Result Labs Labs: Short CBC 03/26/23 Range/Units 09:16 WBC 19.20 H (4.50-11.00) K/uL Hgb 12.7 L (13.5-17.5) gm/dL Hct 36.6 L (37.0-53.0) % Plt Count 621 H (140-440) K/uL BMP 03/26/23 09:16 Sodium 127 L Potassium 4.1 Chloride 91 L Carbon Dioxide 23 BUN 6 Creatinine 0.7 Glucose 100 Liver Function 03/26/23 Range/Units 09:16 Total Bilirubin 9.3 H (0.1-1.5) mg/dL Direct Bilirubin 7.6 H (0.0-0.5) mg/dL AST 419 H (12-35) U/L ALT 104 H (4-50) U/L Alkaline Phosphatase 551 H (40-150) U/L Albumin 3.2 L (3.3-5.0) g/dL Assessment and Plan Assessment and plan (1) Alcoholic hepatitis: Problem comment: Moderately severe with new onset jaundice and elevated transaminases. Imaging shows no other obvious complication in the biliary tract or portal vein thrombosis Status: Acute (2) SBP (spontaneous bacterial peritonitis): Problem comment: Pending sampling of ascitic fluid. Empiric antibiotic with ceftriaxone lab results and culture. Status: Suspected (3) Alcohol use disorder: Problem comment: Longstanding Status: Acute (4) Jaundice: Problem comment: Likely due to acute on chronic liver disease from alcohol. Status: Acute (5) Elevated blood pressure reading: Problem comment: Recurrent elevated blood pressures by patient's report Status: Acute (6) Ascites: Problem comment: Small amount of ascites. Diagnostic Paracentesis performed by Dr. Hernandez. Results pending Status: Acute (7) Hyponatremia: Problem comment: Due to cirrhosis of the liver. Monitor closely with attempts at diuresis. Status: Acute Plan Patient is admitted to the hospital for supportive care for alcoholic liver disease. Most likely explanation for his current symptoms are acute alcoholic hepatitis. Does not appear to meet criteria for initiating methylprednisolone/steroid treatment. Ongoing concern about spontaneous bacterial peritonitis. Initiate ceftriaxone pending cell counts and cultures. Monitor for alcohol withdrawal. Monitor for complications of alcohol use. Cautiously introduce diuretic to deal with ascites and lower extremity edema. Total time spent is 85 minutes, 65 minutes in coordination of care discussing with patient and other providers ongoing evaluation management of alcoholic liver disease.
[2023-03-26 14:55] LABS: Albumin Body Fluid* < 1.0 gm/dL; Amylase Body Fluid* < 30 U/L; Glucose Body Fluid* 91 mg/dL; LDH Body Fluid* 81 U/L
[2023-03-26 14:56] LABS: BF Total Volume* 9
[2023-03-26 15:03] LABS: Mononuclear WBC Body Fluid* 69 %; Polynuclear WBC Body Fluid* 31 %; RBC, Body Fluid* 4000 Cells/uL; WBC, Body Fluid* 100 Cells/uL
[2023-03-26 15:05] LABS: BF Clarity* Cloudy; BF Color Xanthochromic
[2023-03-26 15:06] LABS: Body Fluid Total Protein* < 2.0 gm/dL
[2023-03-26 15:20] LABS: NT Pro B Type NatriureticPept* 193 pg/mL
--- NOTE | 2023-03-26 19:14 | PC.NURSE ---
Nursing Care Hours: [id number] Pt this shift arrived from ED in wheelchair, alert and oriented. No c/o pain, describes feeling uncomfortable d/t swelling in abdomen and extremities. Skin dark alicea, LS clear, 2+ pitting edema bilat legs. Voided in toilet, missed urinal for measure and UA. Independent in room. CIWA done upon arrival, scored 0.
[2023-03-26] MEDS: SODIUM CHLORIDE 0.9 % (FLUSH) 10 ML SYRINGE 5 ML IVF (20:56)
[2023-03-26] MEDS: THIAMINE 100 MG TABLET 250 MG PO (20:56)
[2023-03-26] MEDS: LORazepam 0.5 MG TABLET PO (21:53)
--- NOTE | 2023-03-26 22:41 | PC.NURSE ---
Alert and oriented x 4. Reports feeling uncomfortable due to abdominal pressure, abdomen is round and distended. Denies any nausea or vomiting. Denies any pain, shortness of breath or chest pain. Patient requested medication for sleep, per report he takes benadryl at home as a sleep aid, updated Dr. Dorsey and new order for lorazepam PRN nightly. Ambulates independently in room. Updated patient regarding new order for fluid restriction, patient verbalizes understanding. Patient void x 1, he states he forgot to use urinal and understands importance of collecting specimen. Patient requesting and children not be updated with health issues, chart updated.
[2023-03-27 03:30] VITALS: BP 132/96; PULSE 126; RESP 18; TEMP 37; O2SAT 96
[2023-03-27 03:46] LABS: Bilirubin Urine 3+ (Negative); Blood Urine Trace-intact (Negative); Glucose Urine Trace (Negative); Ketones Urine Trace (Negative); Leukocyte Esterase Urine Negative (Negative); Nitrite Urine Negative (Negative); Protein Urine 1+ (Negative); Specific Gravity Urine 1.015 (1.000-1.030); Urobilinogen Urine >=8.0 (0.2-1.0)
[2023-03-27 03:47] LABS: Color Urine Brown (Yellow)
[2023-03-27 03:48] LABS: Appearance Urine Slightly Cloudy (Clear)
[2023-03-27 06:15] LABS: Basophils Percent Auto 0.2 % (0.0-3.0); Eosinophils Percent Auto 0.2 % (0.0-7.0); Hematocrit 32.2 % (37.0-53.0); Hemoglobin* 11.3 gm/dL (13.5-17.5); Immature Granulocytes Pct Auto 1.5 %; Lymphocytes Percent Auto 7.6 % (20-44); Mean Corpuscular HGB Conc 35 gm/dL (32-36); Mean Corpuscular Hemoglobin 37 pg (26-34); Mean Corpuscular Volume 106 fL (80-100); Neutrophils Percent Auto 84.5 % (42.0-72.0); Platelet Count* 448 K/uL (140-440); RDW Coefficient of Variation % 16.6 % (11.5-15.5); Red Blood Count 3.04 m/uL (4.30-5.90); White Blood Count* 17.72 K/uL (4.50-11.00)
--- NOTE | 2023-03-27 06:17 | PC.NURSE ---
Pt is oriented to self x3. Afebrile. Pt denies pain, chest pain, SOB and N/V. When pt was asked about pressure in abdomen, pt reported ?It is still there but feels much better than yesterday.? CIWA scores have been 0. Pt is tolerating a regular diet with 2000cc fluid restriction and voiding. Pt is up ad jennifer. Pt slept intermittently night.??
[2023-03-27 06:21] LABS: Slide Review Reflex No
[2023-03-27 06:55] LABS: Albumin* 2.7 g/dL (3.3-5.0); Chloride* 88 mmol/L (96-114); Sodium* 125 mmol/L (135-149)
[2023-03-27 06:56] LABS: Potassium* 3.9 mmol/L (3.6-5.1)
[2023-03-27 06:58] LABS: Anion Gap 8 mEq/L (7-15); Aspartate Amino Transferase* 349 U/L (12-35); Bilirubin Direct* 6.7 mg/dL (0.0-0.5); Bilirubin Total* 8.1 mg/dL (0.1-1.5); Carbon Dioxide* 29 mmol/L (20-32); Creatinine* 0.8 mg/dL (0.5-1.5); Estimated Glomerular Filt Rate 113 ml/min
[2023-03-27 06:59] LABS: Alanine Aminotransferase* 78 U/L (4-50); Alkaline Phosphatase* 476 U/L (40-150); Blood Urea Nitrogen* 10 mg/dL (5-24); Calcium* 7.4 mg/dL (8.4-10.6); Glucose* 74 mg/dL (60-115)
[2023-03-27 07:00] VITALS: BP 131/106; PULSE 116; RESP 20; TEMP 37; O2SAT 95
[2023-03-27 07:01] LABS: C Reactive Protein* 7.4 mg/dL (0.5-1.0)
[2023-03-27 07:30] LABS: Bacteria Urine Few; RBC Urine 0-2 (0-2); Squamous Epithelial Cell Urine Few (None-Few); WBC Urine 0-2 (0-5)
[2023-03-27 07:44] LABS: Amphetamine Screen Urine Negative (Negative); Barbiturate Screen Urine Negative (Negative); Benzodiazepines Screen Urine POSITIVE (Negative); Cannabinoid Screen Urine POSITIVE (Negative); Cocaine Screen Urine Negative (Negative); Methadone Screen Urine Negative (Negative); Methamphetamines Screen Urine Negative (Negative); Opiate Screen Urine Negative (Negative); Oxycodone Screen Urine Negative (Negative); Phencyclidine Screen Urine Negative (Negative); Tricyclic Antidepressant Urine Negative (Negative)
[2023-03-27] MEDS: FUROSEMIDE 20 MG TABLET PO ×2 (09:11→14:23)
[2023-03-27] MEDS: MULTIVITAMIN/MINERALS 1 TABLET 1 TAB PO (09:12)
[2023-03-27] MEDS: FOLIC ACID 1 MG TABLET PO (09:12)
[2023-03-27] MEDS: SPIRONOLACTONE 25 MG TABLET 50 MG PO ×2 (09:14→14:22)
[2023-03-27] MEDS: THIAMINE 100 MG TABLET 250 MG PO ×2 (09:15→20:20)
[2023-03-27] MEDS: SODIUM CHLORIDE 0.9 % (FLUSH) 10 ML SYRINGE 5 ML IVF ×2 (09:17→20:50)
[2023-03-27 10:51] LABS: Magnesium* 1.9 mg/dL (1.5-2.6)
[2023-03-27 10:56] LABS: HCO3 VBG 27 mmol/L (21-28); Lactate* 3.6 mmol/L (0.5-1.9); PCO2 VBG 33 mmHG (40-50); PO2 VBG 66.2 mmHG (25-47); pH VBG 7.518 (7.32-7.43)
--- NOTE | 2023-03-27 10:56 | PM.IMPN1 ---
Progress Note: A&P Assessment and plan (1) Ascites due to alcoholic cirrhosis: Problem details: + peripheral edema weight is typically 240# and patient is up to 260 Aldactone/Furosemide 100:40 electrolyte monitoring (sodium is low as expected) -para done 03/26/23 shows no obvious infection; culture pending; on ceftriaxone 2 grams/24 hours -I spoke with [facility] (Dr. George) - no new advice but agrees that patient needs close follow-up in the next 1-2 weeks. Status: Acute (2) Alcoholic hepatitis: Problem details: Moderately severe with new onset jaundice and elevated transaminases. Imaging shows no other obvious complication in the biliary tract or portal vein thrombosis -MELD 14 -[place] 7 -[place] (40 ... however calculator used APTT) Status: Acute (3) Hyponatremia: Problem details: -low salt diet is actually preferred and will avoid a fluid restriction per UTD: Fluid restriction ? Fluid restriction has traditionally been recommended in patients with cirrhosis and ascites who have hyponatremia. However, such an approach is not supported by the available data and will make an already thirsty patient more uncomfortable, just to correct an asymptomatic laboratory abnormality. We only limit fluid intake when the plasma sodium is less than 120 mEq/L, which is an uncommon finding (1 percent in a multicenter review of 997 consecutive patients) [34], or the patient has neurologic symptoms that might be due to hyponatremia. (See Hyponatremia in patients with cirrhosis.) Status: Acute (4) SBP (spontaneous bacterial peritonitis): Problem details: -awaiting cultures -on ceftriaxone 2 g/24 hours Status: Suspected (5) Sinus tachycardia: Problem details: ECG is sinus tach. no known cardiac disease. Status: Acute (6) Jaundice: Problem details: Likely due to acute on chronic liver disease from alcohol. Status: Acute (7) Elevated blood pressure reading: Problem details: Recurrent elevated blood pressures by patient's report Status: Acute (8) Alcohol use disorder: Problem details: Longstanding issues pt declines referral to AA or other therapy pt declines to discuss this with his or daughters I can stop, I can do this on my own Status: Acute Subjective Date Seen: 03/27/23 Interval history: Daily Progress Note - Hospital Medicine Day #: 2 Rocephin day 2 CC: Alcoholic cirrhosis, new ascites OVERNIGHT UPDATES FROM STAFF & MED, LAB, IMAGING UPDATES Did well overnight. Last drink is reportedly 03/23. No evidence of withdrawal. No fever. Mildly hypertensive and sinus tach take since admission. 133/101 Pulse 116 (range has been 140 down to 116) Resp is 18 Afebrile Room air 95% CBC reflects an ongoing leukocytosis. 19.2 yesterday 17.7 today. -procalcitonin 0.9, not drawn yesterday -CRP is down trending slightly 7.7-7.4 - mild anemia down to 11.3 today, platelet count is down trending from 621 down to 448 CMP reflects sodium 127 down to 125 Potassium normal Creatinine normal 0.7, 0.8 Glucose normal 100, 74 Lactate increasing 3.0 up to 3.6 Calcium 7.4 Magnesium is normal LFTs: Total bili 8.1, down from 9.3 Direct is down from 7.6 down to 6.7 AST 349, ALT 78, alk-phos 476 Ammonia pending troponin normal PH 7.5 INR 1.04, APTT 35 Pending: GGT, tick-borne panel, hepatitis panel, full culture on paracentesis. Cell counts from the abdominal paracentesis reveal fluid white blood cells 100, fluid red blood cells 4000, PMNs 31 CT reviewed from admission Hepatomegaly, diffuse hepatic steatosis, small volume four-quadrant ascites. These findings may represent early cirrhosis. No focal liver lesion is identified. Incidental findings described above including a small direct fat and fluid containing right inguinal hernia. Fluid within the hernia sac is considered to be due to communication between the hernia sac and the ascites in the abdominopelvic peritoneal space. Blood culture x2 negative to date home a body fluid culture pending from paracentesis Urine culture pending Objective: alert, cooperative. Vitals: see above Lungs: Clear. Cardiac: S1S2. no nurmur Abdomen: nontender; distended/firm. c/w ascites legs: 1-2+ edema thru thighs Disposition/Potential discharge - Likely to return to previous living situation. Today I spent 50minutes seeing the patient, reviewing [facility] and EPIC notes/diagnostics, discussing the care plan with our care time that includes social work, PT/OT, pharmacy, RT, long-term and documenting my impressions and plan in the medical record. Exam Const: Vital Signs, click to edit/add: Vital Signs - 24 hr 03/26/23 11:09 03/26/23 11:13 03/26/23 11:15 Temperature Pulse Rate 125 H 128 H Pulse Rate [Right Pulse Oximeter] Respiratory Rate Blood Pressure 154/113 H Blood Pressure [Le ft Arm] Pulse Oximetry 97 96 Oxygen Delivery Me thod 03/26/23 11:21 03/26/23 11:32 03/26/23 11:45 Temperature Pulse Rate 131 H 142 H 137 H Pulse Rate [Right Pulse Oximeter] Respiratory Rate Blood Pressure 160/113 H Blood Pressure [Le ft Arm] Pulse Oximetry 95 97 96 Oxygen Delivery Me thod 03/26/23 11:46 03/26/23 12:00 03/26/23 12:04 Temperature Pulse Rate 138 H 133 H 139 H Pulse Rate [Right Pulse Oximeter] Respiratory Rate Blood Pressure 151/105 H Blood Pressure [Le ft Arm] Pulse Oximetry 96 98 95 Oxygen Delivery Me thod 03/26/23 12:15 03/26/23 12:25 03/26/23 12:30 Temperature Pulse Rate 137 H 142 H 137 H Pulse Rate [Right Pulse Oximeter] Respiratory Rate Blood Pressure Blood Pressure [Le ft Arm] Pulse Oximetry 97 96 96 Oxygen Delivery Me thod 03/26/23 12:41 03/26/23 12:45 03/26/23 13:00 Temperature Pulse Rate 135 H 130 H 136 H Pulse Rate [Right Pulse Oximeter] Respiratory Rate Blood Pressure 137/105 H Blood Pressure [Le ft Arm] Pulse Oximetry 94 96 96 Oxygen Delivery Me thod 03/26/23 13:05 03/26/23 13:15 03/26/23 13:25 Temperature Pulse Rate 138 H 138 H 139 H Pulse Rate [Right Pulse Oximeter] Respiratory Rate Blood Pressure Blood Pressure [Le ft Arm] Pulse Oximetry 96 96 96 Oxygen Delivery Me thod 03/26/23 13:30 03/26/23 13:44 03/26/23 13:45 Temperature Pulse Rate 138 H 132 H 133 H Pulse Rate [Right Pulse Oximeter] Respiratory Rate Blood Pressure Blood Pressure [Le ft Arm] Pulse Oximetry 96 95 95 Oxygen Delivery Me thod 03/26/23 14:00 03/26/23 14:37 03/26/23 15:00 Temperature 98.1 F 98.1 F Pulse Rate 135 H Pulse Rate [Right Pulse Oximeter] 140 H 140 H Respiratory Rate 18 18 Blood Pressure Blood Pressure [Le ft Arm] 130/99 H 130/99 H Pulse Oximetry 94 97 97 Oxygen Delivery Me thod Room Air Room Air 03/26/23 16:17 03/26/23 19:00 03/26/23 22:37 Temperature 98.1 F 98.6 F 98.6 F Pulse Rate Pulse Rate [Right Pulse Oximeter] 140 H 126 H 126 H Respiratory Rate 18 16 16 Blood Pressure Blood Pressure [Le ft Arm] 130/99 H 142/114 H 142/114 H Pulse Oximetry 97 97 97 Oxygen Delivery Me thod Room Air Room Air Room Air 03/26/23 23:40 03/26/23 23:40 03/26/23 23:40 Temperature 98 F 98 F Pulse Rate Pulse Rate [Right Pulse Oximeter] 120 H 120 H 120 H Respiratory Rate 18 18 18 Blood Pressure Blood Pressure [Le ft Arm] 120/81 120/81 Pulse Oximetry 94 94 Oxygen Delivery Me thod Room Air Room Air 03/27/23 03:30 03/27/23 07:00 Temperature 98.6 F 98.6 F Pulse Rate Pulse Rate [Right Pulse Oximeter] 126 H 116 H Respiratory Rate 18 20 Blood Pressure Blood Pressure [Le ft Arm] 132/96 H 131/106 H Pulse Oximetry 96 95 Oxygen Delivery Me thod Room Air Room Air Labs Labs: Laboratory Results - last 24 hr 03/26/23 03/26/23 03/26/23 09:16 12:52 13:05 WBC RBC Hgb Hct MCV MCH MCHC RDW Coeff of Ellen Plt Count Neut % (Auto) Lymph % (Auto) [place] % (Auto) Eos % (Auto) Baso % (Auto) Neut # (Auto) Lymph # (Auto) [place] # (Auto) Eos # (Auto) Baso # (Auto) Abs Immat Gran (auto) Imm/Tot Granulo (auto) INR Sodium Potassium Chloride Carbon Dioxide Anion Gap 13 BUN Creatinine Estimated Creat Clear Estimated GFR Glucose Lactate 3.0 H Calcium Magnesium 1.8 Total Bilirubin Direct Bilirubin AST ALT Alkaline Phosphatase C-Reactive Protein NT-Pro-B Natriuret Pep 193 Total Protein Albumin Urine Color Urine Appearance Urine pH Ur Specific [place] Urine Protein Urine Glucose (UA) Urine Ketones Urine Blood Urine Nitrite Urine Bilirubin Urine Urobilinogen Ur Leukocyte Esterase Urine RBC Urine WBC Ur Squamous Epith Cells Urine Bacteria Fluid Volume Fluid Color Fluid Appearance Fluid WBC Fluid RBC Fluid Polynuclear WBCs Fluid Mononuclear WBCs Fluid Glucose Fluid Total Protein Fluid Albumin Fluid LDH Fluid Amylase Urine Opiates Screen Ur Oxycodone Screen Urine Methadone Screen Ur Propoxyphene Screen Ur Barbiturates Screen U Tricyclic Antidepress Ur Phencyclidine Scrn Ur Amphetamines Screen U Methamphetamines Scrn U Benzodiazepines Scrn Urine Cocaine Screen U Marijuana (THC) Screen Ur Drug Screen Comment Lab Acknowledgement Test Added 03/26/23 03/26/23 03/26/23 13:45 15:30 Unknown WBC RBC Hgb Hct MCV MCH MCHC RDW Coeff of Ellen Plt Count Neut % (Auto) Lymph % (Auto) [place] % (Auto) Eos % (Auto) Baso % (Auto) Neut # (Auto) Lymph # (Auto) [place] # (Auto) Eos # (Auto) Baso # (Auto) Abs Immat Gran (auto) Imm/Tot Granulo (auto) INR 1.04 Sodium Potassium Chloride Carbon Dioxide Anion Gap BUN Creatinine Estimated Creat Clear Estimated GFR Glucose Lactate Calcium Magnesium Total Bilirubin Direct Bilirubin AST ALT Alkaline Phosphatase C-Reactive Protein NT-Pro-B Natriuret Pep Total Protein Albumin Urine Color Urine Appearance Urine pH Ur Specific [place] Urine Protein Urine Glucose (UA) Urine Ketones Urine Blood Urine Nitrite Urine Bilirubin Urine Urobilinogen Ur Leukocyte Esterase Urine RBC Urine WBC Ur Squamous Epith Cells Urine Bacteria Fluid Volume 9 Fluid Color Xanthochromic A Fluid Appearance Cloudy A Fluid WBC 100 Fluid RBC 4000 Fluid Polynuclear WBCs 31 Fluid Mononuclear WBCs 69 Fluid Glucose 91 Fluid Total Protein < 2.0 Fluid Albumin < 1.0 Fluid LDH 81 Fluid Amylase < 30 Urine Opiates Screen Negative Ur Oxycodone Screen Negative Urine Methadone Screen Negative Ur Propoxyphene Screen Negative Ur Barbiturates Screen Negative U Tricyclic Antidepress Negative Ur Phencyclidine Scrn Negative Ur Amphetamines Screen Negative U Methamphetamines Scrn Negative U Benzodiazepines Scrn POSITIVE A Urine Cocaine Screen Negative U Marijuana (THC) Screen POSITIVE A Ur Drug Screen Comment See Note Lab Acknowledgement 03/27/23 03/27/23 03/27/23 03:30 05:51 10:30 WBC 17.72 H RBC 3.04 L Hgb 11.3 L Hct 32.2 L MCV 106 H MCH 37 H MCHC 35 RDW Coeff of Ellen 16.6 H Plt Count 448 H Neut % (Auto) 84.5 H Lymph % (Auto) 7.6 L [place] % (Auto) 6.0 Eos % (Auto) 0.2 Baso % (Auto) 0.2 Neut # (Auto) 15.00 H Lymph # (Auto) 1.30 [place] # (Auto) 1.10 H Eos # (Auto) 0.00 Baso # (Auto) 0.00 Abs Immat Gran (auto) 0.30 Imm/Tot Granulo (auto) 1.5 INR Sodium 125 L Potassium 3.9 Chloride 88 L Carbon Dioxide 29 Anion Gap 8 BUN 10 Creatinine 0.8 Estimated Creat Clear 142.30 Estimated GFR 113 Glucose 74 Lactate Calcium 7.4 L Magnesium Total Bilirubin 8.1 H Direct Bilirubin 6.7 H AST 349 H ALT 78 H Alkaline Phosphatase 476 H C-Reactive Protein 7.4 H NT-Pro-B Natriuret Pep Total Protein 6.0 Albumin 2.7 L Urine Color Brown A Urine Appearance Slightly Cloudy A Urine pH 6.0 Ur Specific [place] 1.015 Urine Protein 1+ A Urine Glucose (UA) Trace A Urine Ketones Trace A Urine Blood Trace-intact A Urine Nitrite Negative Urine Bilirubin 3+ A Urine Urobilinogen >=8.0 A Ur Leukocyte Esterase Negative Urine RBC 0-2 Urine WBC 0-2 Ur Squamous Epith Cells Few Urine Bacteria Few A Fluid Volume Fluid Color Fluid Appearance Fluid WBC Fluid RBC Fluid Polynuclear WBCs Fluid Mononuclear WBCs Fluid Glucose Fluid Total Protein Fluid Albumin Fluid LDH Fluid Amylase Urine Opiates Screen Ur Oxycodone Screen Urine Methadone Screen Ur Propoxyphene Screen Ur Barbiturates Screen U Tricyclic Antidepress Ur Phencyclidine Scrn Ur Amphetamines Screen U Methamphetamines Scrn U Benzodiazepines Scrn Urine Cocaine Screen U Marijuana (THC) Screen Ur Drug Screen Comment Lab Acknowledgement Test Added
[2023-03-27 11:00] VITALS: BP 133/101; PULSE 116; RESP 18; TEMP 36.8; O2SAT 95
[2023-03-27 11:12] LABS: Procalcitonin* 0.92 ng/mL (<0.50)
[2023-03-27 11:13] LABS: Troponin I* < 0.01 ng/mL (0.01-0.04)
[2023-03-27 11:21] LABS: INR 1.04 (0.91-1.10); Prothrombin Time 14.2 Seconds
[2023-03-27 11:22] LABS: Partial Thromboplastin Time* 35 Seconds (23-33)
[2023-03-27 13:18] LABS: Gamma Glutamyl Transpeptidase* 1841 U/L (8-55)
[2023-03-27] MEDS: 0.9 % SODIUM CHLORIDE 1000 ml 1,000 ML 250 ML IV (13:19)
[2023-03-27] MEDS: cefTRIAXone 2 GM in 0.9 % SODIUM CHLORIDE Mini-bag 100 ML IVPB (14:25)
--- NOTE | 2023-03-27 14:49 | PC.NURSE ---
Pt up in room independently. Pt sitting in recliner most of this shift. Abdomen distended and hard. Pt reports pain bilateral sides of abdomen. Denies pain otherwise. Edema increased after pt walked in hallways. Pratik socks on. Pt enc to elevate feet. Pt reported he doesn't feel he is peeing enough and urine dark. Bladder scan performed with 189ml post void residual urine. C/O cramping in hands. MD updated and new orders given.
[2023-03-27 15:15] VITALS: BP 133/101; PULSE 125; RESP 18; TEMP 37; O2SAT 96
--- NOTE | 2023-03-27 18:00 | US_ITS ---
Final Report Patient: NATO BROWN Facility:?[facility] Patient ID:?[id number] Site Patient ID:?[id number] Site :?[id number] Study:?US Abdomen RUQ-03/27/2023 10:59:48 PM Ordering Physician:OUMAR GAXIOLA Final Report: INDICATION: Liver failure, alcoholic cirrhosis, jaundice, CT TECHNIQUE: Ultrasound abdomen limited. Sonographic images of the right upper quadrant were obtained using diehl-scale and color Doppler images. COMPARISON: CT abdomen pelvis March 26, 2023 FINDINGS: Liver: Difficult to visualize. Increased echogenicity throughout the liver. No masses. No intrahepatic biliary dilatation. Gallbladder: No stones or sludge. 0.4 cm wall thickness. No pericholecystic fluid. Common bile duct: 6 mm. Pancreas: Not visualized. Right kidney: 11.7 x 5.9 x 6.0 cm. Normal echotexture and cortex. No masses, stones, or hydronephrosis. Vasculature: Proximal abdominal aorta is normal. The IVC is not visualized. There is a small amount of ascites. IMPRESSION: Increased echogenicity throughout the liver likely due to hepatic steatosis. The liver was difficult to visualize. No focal mass identified. Hepatomegaly was identified on the CT abdomen pelvis from yesterday. Mild gallbladder wall thickening likely due to presence of ascites. The pancreas and IVC were not visualized on this exam. Dictated by Tressa Park MD @ 03/27/2023 11:49:26 PM (Electronic Signature)
--- NOTE | 2023-03-27 18:00 | US_ITS ---
Final Report Patient: NATO BROWN Facility:?[facility] Patient ID:?[id number] Site Patient ID:?[id number] Site :?[id number] Study:?US Abdomen RUQ-03/27/2023 10:59:48 PM Ordering Physician:OUMAR GAXIOLA Final Report: INDICATION: Liver failure, alcoholic cirrhosis, jaundice, CT TECHNIQUE: Ultrasound abdomen limited. Sonographic images of the right upper quadrant were obtained using diehl-scale and color Doppler images. COMPARISON: CT abdomen pelvis March 26, 2023 FINDINGS: Liver: Difficult to visualize. Increased echogenicity throughout the liver. No masses. No intrahepatic biliary dilatation. Gallbladder: No stones or sludge. 0.4 cm wall thickness. No pericholecystic fluid. Common bile duct: 6 mm. Pancreas: Not visualized. Right kidney: 11.7 x 5.9 x 6.0 cm. Normal echotexture and cortex. No masses, stones, or hydronephrosis. Vasculature: Proximal abdominal aorta is normal. The IVC is not visualized. There is a small amount of ascites. IMPRESSION: Increased echogenicity throughout the liver likely due to hepatic steatosis. The liver was difficult to visualize. No focal mass identified. Hepatomegaly was identified on the CT abdomen pelvis from yesterday. Mild gallbladder wall thickening likely due to presence of ascites. The pancreas and IVC were not visualized on this exam. Dictated by Tressa Park MD @ 03/27/2023 11:49:26 PM (Electronic Signature)
[2023-03-27 18:30] LABS: Ionized Calcium* 0.96 mmol/L (1.11-1.30); Lactate* 1.9 mmol/L (0.5-1.9)
[2023-03-27 18:48] LABS: Chloride* 92 mmol/L (96-114); Potassium* 3.8 mmol/L (3.6-5.1); Sodium* 125 mmol/L (135-149)
[2023-03-27 18:50] LABS: Creatinine* 0.8 mg/dL (0.5-1.5); Estimated Glomerular Filt Rate 113 ml/min
[2023-03-27 18:51] LABS: Anion Gap 9 mEq/L (7-15); Blood Urea Nitrogen* 12 mg/dL (5-24); Calcium* 7.5 mg/dL (8.4-10.6); Carbon Dioxide* 24 mmol/L (20-32); Glucose* 92 mg/dL (60-115)
--- NOTE | 2023-03-27 18:57 | PC.NURSE ---
end of shift. pt has been very pleasant. Pt is oriented to self x3. Afebrile. Pt denies pain, chest pain, SOB and N/V. he is up ab jennifer. he is voiding. md was updated and lasix was started. abd has not changed distended and firm. US is here to scan him. he has been npo/ CIWA scores have been 0.
[2023-03-27 19:00] VITALS: BP 146/106; PULSE 120; RESP 20; TEMP 37; O2SAT 97
[2023-03-27] MEDS: OMEPRAZOLE 20 MG CAPSULE DR PO (20:50)
[2023-03-27] MEDS: LORazepam 0.5 MG TABLET PO (21:58)
[2023-03-27 23:00] VITALS: BP 149/121; PULSE 128; RESP 18; TEMP 36.8; O2SAT 96
[2023-03-28 03:00] VITALS: BP 113/76; PULSE 107; RESP 16; TEMP 36.8; O2SAT 93
--- NOTE | 2023-03-28 06:28 | PC.NURSE ---
Alert and oriented x 4, independent with transfers and ambulation. Patient concerned due to low urine output with use of diuretics. Night Time Babysitter updated Dr. Dorsey with low output and patient complaining of cramping to hands, no changes at this time. Night Time Babysitter applied aqua k pad to hands as patient states warming them up helps with the cramping and pain. 3-4+ pitting edema to feet and lower legs, 2+ to thighs. Patient reporting pain from TON hose, redness noted where the the top of the stocking ends right below the knee, TON's removed for 1 hor and then legs wrapped with anne wraps for compression due to TON's compromising skin integrity. Continues to report pressure and feeling of fullness to abdomen, denies any shortness of breath.
[2023-03-28 06:53] LABS: Basophils Percent Auto 0.1 % (0.0-3.0); Eosinophils Percent Auto 0.3 % (0.0-7.0); Hematocrit 33.7 % (37.0-53.0); Hemoglobin* 11.8 gm/dL (13.5-17.5); Lymphocytes Percent Auto 7.1 % (20-44); Mean Corpuscular HGB Conc 35 gm/dL (32-36); Mean Corpuscular Hemoglobin 37 pg (26-34); Mean Corpuscular Volume 105 fL (80-100); Monocytes Percent Auto 6.4 % (0.0-11.0); Neutrophils Percent Auto 84.1 % (42.0-72.0); Platelet Count* 532 K/uL (140-440); RDW Coefficient of Variation % 16.4 % (11.5-15.5); White Blood Count* 19.07 K/uL (4.50-11.00)
[2023-03-28 06:54] LABS: Slide Review Reflex No
[2023-03-28 07:00] VITALS: BP 128/109; PULSE 112; RESP 20; TEMP 36.9; O2SAT 96
[2023-03-28 07:07] LABS: HCO3 VBG 28 mmol/L (21-28); Ionized Calcium* 0.99 mmol/L (1.11-1.30); PCO2 VBG 37 mmHG (40-50); pH VBG 7.494 (7.32-7.43)
[2023-03-28 07:12] LABS: INR 1.03 (0.91-1.10); Prothrombin Time 14.2 Seconds
[2023-03-28 07:27] LABS: Albumin* 2.9 g/dL (3.3-5.0); Chloride* 91 mmol/L (96-114)
[2023-03-28 07:30] LABS: Alkaline Phosphatase* 532 U/L (40-150); Anion Gap 7 mEq/L (7-15); Aspartate Amino Transferase* 390 U/L (12-35); Bilirubin Direct* 6.6 mg/dL (0.0-0.5); Bilirubin Total* 8.2 mg/dL (0.1-1.5); Blood Urea Nitrogen* 10 mg/dL (5-24); Carbon Dioxide* 27 mmol/L (20-32); Creatinine* 0.7 mg/dL (0.5-1.5); Est. Creatinine Clearance* 162.63; Estimated Glomerular Filt Rate 117 ml/min; Glucose* 88 mg/dL (60-115); Sodium* 125 mmol/L (135-149); Total Protein* 6.4 g/dL (6.0-8.3)
[2023-03-28 07:31] LABS: Alanine Aminotransferase* 87 U/L (4-50); Calcium* 7.5 mg/dL (8.4-10.6)
[2023-03-28 07:33] LABS: C Reactive Protein* 7.1 mg/dL (0.5-1.0)
[2023-03-28 07:42] LABS: Gamma Glutamyl Transpeptidase* 1965 U/L (8-55)
[2023-03-28 07:47] LABS: Procalcitonin* 0.99 ng/mL (<0.50)
[2023-03-28] MEDS: FUROSEMIDE 40 MG TABLET 80 MG PO (08:17)
[2023-03-28] MEDS: FOLIC ACID 1 MG TABLET PO (08:17)
[2023-03-28] MEDS: MULTIVITAMIN/MINERALS 1 TABLET 1 TAB PO (08:18)
[2023-03-28] MEDS: OMEPRAZOLE 20 MG CAPSULE DR PO ×2 (08:19→21:07)
[2023-03-28] MEDS: SPIRONOLACTONE 100 MG TABLET 200 MG PO (08:19)
[2023-03-28] MEDS: THIAMINE 100 MG TABLET 250 MG PO ×2 (08:21→21:07)
[2023-03-28] MEDS: SODIUM CHLORIDE 0.9 % (FLUSH) 10 ML SYRINGE 5 ML IVF ×2 (08:22→21:07)
[2023-03-28 08:32] LABS: Free T4 Free Thyroxine* 1.94 ng/dL (0.70-1.85)
[2023-03-28 09:06] LABS: Lyme ELISA Reflex 0.54 IV (<=0.90)
--- NOTE | 2023-03-28 09:29 | NUTR.NU ---
RDN with nutrition screen for 2 gram sodium diet. Patient has a current diagnosis not limited to ascites due to alcoholic cirrhosis, hyponatremia, and alcoholic hepatitis. Patient has a fair to good appetite. Patient ate 75% at dinner on 03/26/23, ate 75% at 2 meals on 03/27/23, and ate 50% of breakfast this morning. Per MD note, patient's weight is typically around 240lbs and current weight is at 263lbs 03/28/23. Patient is currently on Lasix for diuresis. Patient reports that he does the cooking, but his does the grocery shopping. Patient states that his also follows a low sodium diet. Nutrition education provided on a low sodium diet.? Verbal and written information provided. Recommend limiting sodium to 2,000 mg per day.? Follow recommendation and duration per MD order. Discussed foods recommended and to avoid, as well as a sample menu.? Handouts provided from [facility] on low sodium nutrition therapy and sodium content of foods.? Patient verbalized understanding.?RDN's contact information was provided and patient was encouraged to call with questions.? RDN will continue to monitor and follow-up PRN.
[2023-03-28 11:00] VITALS: BP 138/102; PULSE 110; RESP 18; TEMP 36.8; O2SAT 96
[2023-03-28] MEDS: PERFLUTREN LIPID MICROSPHERES 2 ML VIAL IV (13:45)
--- NOTE | 2023-03-28 13:46 | PC.NURSE ---
Definity contrast given for echo. 2ml given total through PIV. Lot#[id number], exp date: 03/06/24. pt tolerated well.
[2023-03-28] MEDS: cefTRIAXone 2 GM in 0.9 % SODIUM CHLORIDE Mini-bag 100 ML IVPB (14:08)
[2023-03-28] MEDS: 0.9 % SODIUM CHLORIDE 250 ml IV (14:10)
--- NOTE | 2023-03-28 14:55 | PM.IMPN1 ---
Progress Note: A&P Assessment and plan (1) Ascites due to alcoholic cirrhosis: Problem details: + peripheral edema weight is typically 240# and patient is up to 260 Aldactone/Furosemide increased to 200/80 electrolyte monitoring (sodium is low as expected) -para done 03/26/23 shows no obvious infection; culture pending; on ceftriaxone 2 grams/24 hours -will add albumin as treatment -I spoke with [facility] (Dr. George) - no new advice but agrees that patient needs close follow-up in the next 1-2 weeks. Status: Acute (2) Alcoholic hepatitis: Problem details: Moderately severe with new onset jaundice and elevated transaminases. Imaging shows no other obvious complication in the biliary tract or portal vein thrombosis -MELD 14 -Darin 7 -Maddrey (40 ... however calculator used APTT) Status: Acute (3) Hyponatremia: Problem details: -low salt diet is actually preferred and will avoid a fluid restriction per UTD: Fluid restriction ? Fluid restriction has traditionally been recommended in patients with cirrhosis and ascites who have hyponatremia. However, such an approach is not supported by the available data and will make an already thirsty patient more uncomfortable, just to correct an asymptomatic laboratory abnormality. We only limit fluid intake when the plasma sodium is less than 120 mEq/L, which is an uncommon finding (1 percent in a multicenter review of 997 consecutive patients) [34], or the patient has neurologic symptoms that might be due to hyponatremia. (See Hyponatremia in patients with cirrhosis.) Status: Acute (4) SBP (spontaneous bacterial peritonitis): Problem details: -awaiting cultures -on ceftriaxone 2 g/24 hours Status: Suspected (5) Sinus tachycardia: Problem details: ECG is sinus tach. no known cardiac disease. echo normal. Status: Acute (6) Jaundice: Problem details: Likely due to acute on chronic liver disease from alcohol. Status: Acute (7) Elevated blood pressure reading: Problem details: Recurrent elevated blood pressures by patient's report Status: Acute (8) Alcohol use disorder: Problem details: Longstanding issues pt declines referral to AA or other therapy pt declines to discuss this with his or daughters I can stop, I can do this on my own Status: Acute Subjective Date Seen: 03/28/23 Interval history: Daily Progress Note - Hospital Medicine Day #: 3 Rocephin day 3 CC: Alcoholic liver disease, new ascites OVERNIGHT UPDATES FROM STAFF & MED, LAB, IMAGING UPDATES Did well overnight. Last drink is reportedly 03/23. No evidence of withdrawal. No fever. Mildly hypertensive and sinus tach take since admission. Weight is actually up and urine output has been less than optimal. 133/101 Pulse 110 (slowly improving down from 140 - sinus tach. nml echo. reassuring ecg) Resp is 18 Afebrile Room air 95% CBC reflects an ongoing leukocytosis. 19K today, up from 17 yesterday. -procalcitonin elevated to 0.9, remains elevated -CRP is down trending slightly 7.7-7.4 - mild anemia stable at 11.8, platelet count reactive 532 K today CMP reflects sodium staying at 125 Potassium normal Creatinine normal 0.7, 0.8 Glucose normal 100, 74 elevated lactate resolved Ionized calcium 0.99 Magnesium is normal LFTs: Total bili remains elevated 8.2, 8.1. Direct is elevated at 6.6 AST and ALT remain elevated somewhat higher than yesterday GGT is also creeping up Ammonia is elevated at 66 without evidence of encephalopathy troponin normal PH 7.5 INR remains normal at 1.0. PTT a little elevated at 35 Lyme antibody is negative. The rest of the tick-borne panel and hep panel are pending. Culture on the paracentesis fluid continues to remain negative to date. , 48 hours. Cell counts from the abdominal paracentesis reveal fluid white blood cells 100, fluid red blood cells 4000, PMNs 31 Blood cultures negative to date. Urine culture negative today. Liver ultrasound IMPRESSION: Increased echogenicity throughout the liver likely due to hepatic steatosis. The liver was difficult to visualize. No focal mass identified. Hepatomegaly was identified on the CT abdomen pelvis from yesterday. Mild gallbladder wall thickening likely due to presence of ascites. The pancreas and IVC were not visualized on this exam. Objective: alert, cooperative. Vitals: see above Lungs: Clear. Cardiac: S1S2. no murmur Abdomen: nontender; distended/firm. c/w ascites legs: 1-2+ edema thru thighs Disposition/Potential discharge - Likely to return to previous living situation. Today I spent 50minutes seeing the patient, reviewing Expanse and EPIC notes/diagnostics, discussing the care plan with our care time that includes social work, PT/OT, pharmacy, RT, [place] [facility] and documenting my impressions and plan in the medical record. Alcohol 63469 >30 mins. We went over all the stigmata of alcoholism I see in this patient. I discussed the effects of chronic alcohol on the brain, liver, and heart. I recommended complete abstinence from alcohol and instructed on programs available at discharge from acute care. Exam Const: Vital Signs, click to edit/add: Vital Signs - 24 hr 03/27/23 15:15 03/27/23 15:15 03/27/23 19:00 Temperature 98.6 F 98.6 F Pulse Rate [Right Pulse Oximeter] 125 H 125 H 120 H Respiratory Rate 18 18 20 Blood Pressure [Le ft Arm] 133/101 H 146/106 H Pulse Oximetry 96 97 Oxygen Delivery Me thod Room Air Room Air 03/27/23 23:00 03/28/23 03:00 03/28/23 07:00 Temperature 98.3 F 98.3 F 98.4 F Pulse Rate [Right Pulse Oximeter] 128 H 107 H 112 H Respiratory Rate 18 16 20 Blood Pressure [Le ft Arm] 149/121 H 113/76 128/109 H Pulse Oximetry 96 93 96 Oxygen Delivery Me thod Room Air Room Air Room Air 03/28/23 07:00 03/28/23 07:00 03/28/23 11:00 Temperature 98.4 F 98.3 F Pulse Rate [Right Pulse Oximeter] 112 H 112 H 110 H Respiratory Rate 20 18 Blood Pressure [Le ft Arm] 128/109 H 138/102 H Pulse Oximetry 96 96 Oxygen Delivery Me thod Room Air Room Air Labs Labs: Laboratory Results - last 24 hr 03/26/23 03/27/23 03/28/23 09:16 18:25 06:11 WBC 19.07 H RBC 3.20 L Hgb 11.8 L Hct 33.7 L MCV 105 H MCH 37 H MCHC 35 RDW Coeff of Ellen 16.4 H Plt Count 532 H Neut % (Auto) 84.1 H Lymph % (Auto) 7.1 L [place] % (Auto) 6.4 Eos % (Auto) 0.3 Baso % (Auto) 0.1 Neut # (Auto) 16.00 H Lymph # (Auto) 1.40 [place] # (Auto) 1.20 H Eos # (Auto) 0.10 Baso # (Auto) 0.00 Abs Immat Gran (auto) 0.40 H Imm/Tot Granulo (auto) 2.0 INR 1.03 VBG pH 7.494 H VBG pCO2 37 L VBG pO2 111.0 H VBG HCO3 28 Sodium 125 L 125 L Potassium 3.8 4.0 Chloride 92 L 91 L Carbon Dioxide 24 27 Anion Gap 9 7 BUN 12 10 Creatinine 0.8 0.7 Estimated Creat Clear 142.30 162.63 Estimated GFR 113 117 Glucose 92 88 Lactate 1.9 Calcium 7.5 L 7.5 L Ionized Calcium Marilynn 0.96 L 0.99 L Total Bilirubin 8.2 H Direct Bilirubin 6.6 H GGT 1965 H AST 390 H ALT 87 H Alkaline Phosphatase 532 H C-Reactive Protein 7.1 H Total Protein 6.4 Albumin 2.9 L Procalcitonin 0.99 H TSH 7.240 H Free T4 1.94 H Lyme Disease Antibody 0.54 Lab Acknowledgement Test Added
[2023-03-28 15:00] VITALS: BP 137/100; PULSE 110; RESP 18; TEMP 37.1; O2SAT 95
[2023-03-28] MEDS: ALBUMIN HUMAN 25% 25 GM/100 ML VIAL IVPB ×2 (16:25→17:44)
[2023-03-28 18:04] LABS: Hep A Ab, IgM Negative (Negative); Hep B Core Ab, IgM Negative (Negative); Hep B Surface Antigen Negative (Negative); Hep C Ab by CIA Index 0.06 IV; Hep C Ab by CIA Interp Negative (Negative)
--- NOTE | 2023-03-28 18:44 | PC.NURSE ---
Patient up and walking independently in room and hallway. +2 to +3 pitting edema to bilat legs. Alen wraps applied. Legs elevated. Urine dark tea colored. Urine output decreased. Denies pain and SOB.
[2023-03-28 19:00] VITALS: BP 150/113; PULSE 115; RESP 18; TEMP 36.9; O2SAT 94
[2023-03-28] MEDS: LORazepam 0.5 MG TABLET PO (22:00)
[2023-03-28 22:12] VITALS: BP 149/106; PULSE 106; RESP 18; TEMP 36.8; O2SAT 96
[2023-03-29 01:59] VITALS: RESP 18
--- NOTE | 2023-03-29 05:27 | PC.NURSE ---
[id number] Pt slept during night, denies any pain and walked halls x1 in evening. great urine output during night, 1500cc tea colored urine. anne wraps to BLE, tolerated well during the night.
[2023-03-29 06:40] LABS: HCO3 VBG 31 mmol/L (21-28); PCO2 VBG 42 mmHG (40-50); PO2 VBG 36.9 mmHG (25-47); pH VBG 7.472 (7.32-7.43)
[2023-03-29 06:48] LABS: Basophils Percent Auto 0.2 % (0.0-3.0); Eosinophils Percent Auto 0.3 % (0.0-7.0); Hematocrit 34.2 % (37.0-53.0); Hemoglobin* 11.8 gm/dL (13.5-17.5); Immature Granulocytes Pct Auto 2.8 %; Lymphocytes Percent Auto 9.8 % (20-44); Mean Corpuscular HGB Conc 35 gm/dL (32-36); Mean Corpuscular Hemoglobin 37 pg (26-34); Mean Corpuscular Volume 107 fL (80-100); Monocytes Percent Auto 5.8 % (0.0-11.0); Neutrophils Percent Auto 81.1 % (42.0-72.0); Platelet Count* 530 K/uL (140-440); RDW Coefficient of Variation % 16.3 % (11.5-15.5); Red Blood Count 3.19 m/uL (4.30-5.90); White Blood Count* 18.69 K/uL (4.50-11.00)
[2023-03-29 06:59] LABS: Slide Review Reflex No
[2023-03-29 07:00] VITALS: BP 132/99; PULSE 113; RESP 18; TEMP 36.9; O2SAT 94
[2023-03-29 07:01] LABS: Albumin* 3.2 g/dL (3.3-5.0); Chloride* 90 mmol/L (96-114); Sodium* 126 mmol/L (135-149)
[2023-03-29 07:02] LABS: Potassium* 3.9 mmol/L (3.6-5.1)
[2023-03-29 07:04] LABS: Alkaline Phosphatase* 478 U/L (40-150); Anion Gap 9 mEq/L (7-15); Aspartate Amino Transferase* 408 U/L (12-35); Bilirubin Direct* 6.7 mg/dL (0.0-0.5); Bilirubin Total* 8.3 mg/dL (0.1-1.5); Blood Urea Nitrogen* 9 mg/dL (5-24); Carbon Dioxide* 27 mmol/L (20-32); Creatinine* 0.7 mg/dL (0.5-1.5); Est. Creatinine Clearance* 162.63; Estimated Glomerular Filt Rate 117 ml/min; Glucose* 77 mg/dL (60-115); Total Protein* 6.6 g/dL (6.0-8.3)
[2023-03-29 07:05] LABS: Alanine Aminotransferase* 87 U/L (4-50); Calcium* 7.7 mg/dL (8.4-10.6)
[2023-03-29 07:20] LABS: Procalcitonin* 0.86 ng/mL (<0.50)
[2023-03-29 07:24] LABS: NT Pro B Type NatriureticPept* 194 pg/mL
[2023-03-29] MEDS: ALBUMIN HUMAN 25% 25 GM/100 ML VIAL IVPB ×2 (08:44→10:08)
[2023-03-29] MEDS: FUROSEMIDE 40 MG TABLET 120 MG PO (08:45)
[2023-03-29] MEDS: SPIRONOLACTONE 100 MG TABLET 300 MG PO (08:48)
[2023-03-29] MEDS: OMEPRAZOLE 20 MG CAPSULE DR PO (08:49)
[2023-03-29] MEDS: FOLIC ACID 1 MG TABLET PO (08:49)
[2023-03-29] MEDS: MULTIVITAMIN/MINERALS 1 TABLET 1 TAB PO (08:49)
[2023-03-29] MEDS: THIAMINE 100 MG TABLET 250 MG PO (08:50)
[2023-03-29] MEDS: SODIUM CHLORIDE 0.9 % (FLUSH) 10 ML SYRINGE 5 ML IVF (08:52)
[2023-03-29 11:00] VITALS: BP 141/100; PULSE 110; RESP 18; TEMP 36.9; O2SAT 96
[2023-03-29] MEDS: cefTRIAXone 2 GM in 0.9 % SODIUM CHLORIDE Mini-bag 100 ML IVPB (11:20)
--- NOTE | 2023-03-29 12:31 | PM.DS1 ---
DS: Providers Provider Date Seen: 03/29/23 Date of admission: 03/26/23 16:08 Primary care physician: Not a Local Provider Admitting Clinician: Zulma Abel MD Attending Physician on discharge: Ida Recinos MD Date of Discharge: 03/29/23 DS: Diagnosis Discharge Diagnosis (1) Alcoholic hepatitis: Status: Acute Problem details: Moderately severe with new onset jaundice and elevated transaminases. Imaging shows no other obvious complication in the biliary tract or portal vein thrombosis -MELD 14 -Darin 7 -Maddrey (40 ... however calculator used APTT) -evidence based diuretic regimen 100/40 aldactone/lasix -MVM, thiamine, folic acid, PPI -FOLLOW UP [facility] NEXT WEEK SCHEDULED (2) Ascites due to alcoholic cirrhosis: Status: Acute Problem details: + peripheral edema weight is typically 240# and patient is up to 260 Aldactone/Furosemide increased to 300/120 electrolyte monitoring (sodium is low as expected) -para done 03/26/23 shows no obvious infection; culture neg at discharge, rec'd 3 doses of ceftriaxone -will add IV albumin as acute treatment -I spoke with [facility] (Dr. George) - no new advice but agrees that patient needs close follow-up in the next 1-2 weeks. (3) Alcohol use disorder: Status: Acute Problem details: Longstanding issues pt declines to discuss this with his or daughters referral to counseling (4) SBP (spontaneous bacterial peritonitis): Status: Suspected Problem details: NGTD. cell counts wnl. rec'd three days of rocephin. (5) Hyponatremia: Status: Acute Problem details: I specifically did not place a fluid restriction. (6) Sinus tachycardia: Status: Acute Problem details: ECG is sinus tach. no known cardiac disease. echo normal. DS: Summary Hospital Course Hospital Course: HOSPITALIST DISCHARGE SUMMARY ATTENDING PHYSICIAN: Karime Recinos MD FINAL DIAGNOSIS: Alcoholic hepatitis with new onset ascites Alcohol use disorder HOSPITAL FOLLOWUP ISSUES: [facility] - hepatology follow-up REFERRALS WHILE ADMITTED: None REFERRALS AFTER DISCHARGE: Establish new PCP Psychiatry AA Gastroenterology BRIEF HOSPITAL COURSE: Patient is a pleasant 42-year-old who history of alcohol use disorder. He presented with increased leg swelling and abdominal swelling. Ultimately he was found to have alcoholic hepatitis with elevations in his AST, ALT, alk-phos, GGT. He was also found to have extensive inflammation and fatty changes in his liver. He had peripheral edema and ascites. He did not experience withdrawal. Fortunately he has a normal INR, normal creatinine. He has hyponatremia, which is not unexpected. He was treated with guideline directed diuretic therapy. He was started on spironolactone and furosemide. We up titrated daily. While he was still gaining weight, and peripheral edema had worsened in his legs he felt better. He asked for discharge on the . I recommended he stay until we were able to find optimal doses of diuretics, patient declined. I did work to find a office gastroenterology appointment for next week for follow-up. As we discussed his alcohol use, patient identifies is being high strung and anxious most of his life. He feels alcohol cessation should be no problem, although does mention that he will try AAA with his neighbor. As part of his discharge plan, in addition to arranging gastroenterology follow-up I am addressing psychiatric follow-up as well. SUBSTANTIVE NOTATIONS ON IMAGING, LAB, MICROBIOLOGY/PATHOLOGY STUDIES: Alcoholic hepatitis Leukocytosis Hyponatremia DISCHARGE MEDICATIONS: See Reconciled list - SIGNIFICANT CHANGES: On the day of discharge he was prescribed 300 mg of Aldactone with 120 mg of furosemide, he should continue this until evaluated by Gastroenterology. PPI, folic acid, multivitamin, thiamin prescribed. REVIEW OF SYSTEMS No new chest pain or dyspnea Pain controlled No voiding difficulties Tolerating diet challenge PHYSICAL EXAM: CONSTITUTIONAL: Alert. Mildly anxious to return home. VITAL SIGNS: see record. HEENT: Normocephalic, atraumatic. PERRL, EOMI, conjunctivae pink, no scleral icterus. Ears and nose externally normal. Pharynx normal. NECK: No JVD. No carotid bruit, no thyromegaly, no adenopathy. CHEST: Clear to auscultation bilaterally. HEART: S1 and S2 normal. Edema 2 to 3+ up to his mid thighs ABDOMEN: Soft, distended. MUSCULOSKELETAL: No gross joint deformity or swelling. NEURO: Cranial nerves intact. Grossly intact. No asymmetric findings. SKIN: No rashes, petechiae, concerning changes PSYCHIATRIC: Mood euthymic. DISPOSITION: Home, self-care Time spent on discharge 37 minutes. Status at Discharge Functional status at discharge: independent ambulation Overall status at discharge: patient is progressing back to baseline Time Spent with Patient Time attestation: Total time spent providing and/or coordinating discharge services: Time spent: Greater than 30 minutes Exam Const: Vital Signs, click to edit/add: Vital Signs - 24 hr 03/28/23 15:00 03/28/23 15:00 03/28/23 19:00 Temperature 98.7 F 98.7 F 98.5 F Pulse Rate [Right Pulse Oximeter] 110 H 110 H 115 H Respiratory Rate 18 18 18 Blood Pressure [Le ft Arm] 137/100 H 137/100 H 150/113 H Pulse Oximetry 95 95 94 Oxygen Delivery Me thod Room Air Room Air Room Air 03/28/23 22:12 03/28/23 22:12 03/29/23 01:59 Temperature 98.3 F Pulse Rate [Right Pulse Oximeter] 106 H 106 H Respiratory Rate 18 18 Blood Pressure [Le ft Arm] 149/106 H Pulse Oximetry 96 Oxygen Delivery Me thod Room Air 03/29/23 07:00 03/29/23 07:00 03/29/23 07:00 Temperature 98.4 F 98.4 F Pulse Rate [Right Pulse Oximeter] 113 H 113 H 113 H Respiratory Rate 18 18 Blood Pressure [Le ft Arm] 132/99 H 132/99 H Pulse Oximetry 94 94 Oxygen Delivery Me thod Room Air Room Air DS: Data Data Completed and Pending Labs on day of discharge: Labs from last 24 hours 03/29/23 03/29/23 03/29/23 06:03 06:03 06:03 WBC RBC Hgb Hct MCV MCH Cancelled MCHC Cancelled 35 RDW Coeff of Ellen 16.3 H Plt Count Cancelled 530 H Neut % (Auto) 81.1 H Lymph % (Auto) 9.8 L [place] % (Auto) 5.8 Eos % (Auto) 0.3 Baso % (Auto) 0.2 Neut # (Auto) 15.20 H Lymph # (Auto) 1.80 [place] # (Auto) 1.10 H Eos # (Auto) 0.10 Baso # (Auto) 0.00 Abs Immat Gran (auto) 0.50 H Imm/Tot Granulo (auto) 2.8 VBG pH 7.472 H VBG pCO2 42 VBG pO2 36.9 VBG HCO3 31 H Sodium 126 L Potassium 3.9 Chloride 90 L Carbon Dioxide 27 Anion Gap 9 BUN 9 Creatinine 0.7 Estimated Creat Clear 162.63 Estimated GFR 117 Glucose 77 Calcium 7.7 L Ionized Calcium Marilynn 1.00 L Magnesium 2.0 Total Bilirubin 8.3 H Direct Bilirubin 6.7 H AST 408 H ALT 87 H Alkaline Phosphatase 478 H C-Reactive Protein 6.0 H NT-Pro-B Natriuret Pep 194 Total Protein 6.6 Albumin 3.2 L Procalcitonin 0.86 H Hepatitis A IgM Ab Hep Bs Antigen Hep B Core IgM Ab Hep C Ab Index (SHERICE) Hep C Ab Interp SHERICE Hepatitis Interpret 03/29/23 03/29/23 03/29/23 06:03 06:03 06:03 WBC RBC Hgb Cancelled Hct Cancelled 34.2 L MCV Cancelled 107 H MCH 37 H MCHC RDW Coeff of Ellen Plt Count Neut % (Auto) Lymph % (Auto) [place] % (Auto) Eos % (Auto) Baso % (Auto) Neut # (Auto) Lymph # (Auto) [place] # (Auto) Eos # (Auto) Baso # (Auto) Abs Immat Gran (auto) Imm/Tot Granulo (auto) VBG pH VBG pCO2 VBG pO2 VBG HCO3 Sodium Potassium Chloride Carbon Dioxide Anion Gap BUN Creatinine Estimated Creat Clear Estimated GFR Glucose Calcium Ionized Calcium Marilynn Magnesium Total Bilirubin Direct Bilirubin AST ALT Alkaline Phosphatase C-Reactive Protein NT-Pro-B Natriuret Pep Total Protein Albumin Procalcitonin Hepatitis A IgM Ab Hep Bs Antigen Hep B Core IgM Ab Hep C Ab Index (SHERICE) Hep C Ab Interp SHERICE Hepatitis Interpret 03/29/23 03/29/23 03/29/23 06:03 06:03 06:03 WBC Cancelled 18.69 H RBC Cancelled 3.19 L Hgb 11.8 L Hct MCV MCH MCHC RDW Coeff of Ellen Plt Count Neut % (Auto) Lymph % (Auto) [place] % (Auto) Eos % (Auto) Baso % (Auto) Neut # (Auto) Lymph # (Auto) [place] # (Auto) Eos # (Auto) Baso # (Auto) Abs Immat Gran (auto) Imm/Tot Granulo (auto) VBG pH VBG pCO2 VBG pO2 VBG HCO3 Sodium Potassium Chloride Carbon Dioxide Anion Gap BUN Creatinine Estimated Creat Clear Estimated GFR Glucose Calcium Ionized Calcium Marilynn Magnesium Total Bilirubin Direct Bilirubin AST ALT Alkaline Phosphatase C-Reactive Protein NT-Pro-B Natriuret Pep Total Protein Albumin Procalcitonin Hepatitis A IgM Ab Hep Bs Antigen Hep B Core IgM Ab Hep C Ab Index (SHERICE) Hep C Ab Interp SHERICE Hepatitis Interpret 03/27/23 05:51 WBC RBC Hgb Hct MCV MCH MCHC RDW Coeff of Ellen Plt Count Neut % (Auto) Lymph % (Auto) [place] % (Auto) Eos % (Auto) Baso % (Auto) Neut # (Auto) Lymph # (Auto) [place] # (Auto) Eos # (Auto) Baso # (Auto) Abs Immat Gran (auto) Imm/Tot Granulo (auto) VBG pH VBG pCO2 VBG pO2 VBG HCO3 Sodium Potassium Chloride Carbon Dioxide Anion Gap BUN Creatinine Estimated Creat Clear Estimated GFR Glucose Calcium Ionized Calcium Marilynn Magnesium Total Bilirubin Direct Bilirubin AST ALT Alkaline Phosphatase C-Reactive Protein NT-Pro-B Natriuret Pep Total Protein Albumin Procalcitonin Hepatitis A IgM Ab Negative Hep Bs Antigen Negative Hep B Core IgM Ab Negative Hep C Ab Index (SHERICE) 0.06 Hep C Ab Interp SHERICE Negative Hepatitis Interpret See Note Preliminary micro results at discharge 03/26/23 12:56 Blood Culture - Preliminary Blood NO GROWTH AFTER 48 HOURS 03/26/23 12:52 Blood Culture - Preliminary Blood NO GROWTH AFTER 48 HOURS 03/26/23 13:45 Body Fluid Culture - Preliminary Ascites Fluid Discharge Plan Discharge Disposition: Home, Self-Care Date of Admission: 03/26/23 16:08 Attending Provider on Discharge: Karime Recinos Primary Care Provider: Provider,Not a Local Condition: Improved Anticipated Discharge Date/Time: 03/29/23 12:04 Discharge Medications: New furosemide 40 mg Tablet 120 mg PO DAILY@0800 Qty: 90 0RF spironolactone 100 mg Tablet 300 mg PO DAILY@0800 Qty: 90 0RF lorazepam 0.5 mg Tablet 0.5 mg PO NIGHTLY PRNQty: 30 0RF omeprazole 20 mg Capsule,Delayed Release(Dr/Ec) 20 mg PO BID Qty: 60 0RF folic acid 1 mg Tablet 1 mg PO DAILY Qty: 30 0RF thiamine mononitrate (vit B1) [Vitamin B-1 (mononitrate)] 100 mg Tablet 250 mg PO BID Qty: 60 0RF multivitamin with folic acid [Thera] 400 mcg Tablet 1 tab PO DAILY Qty: 30 0RF Discharge Orders: Discharge Order (Routine); Ordered 03/29/23 Ordered By: Karime Recinos Additional Instructions: 1. Complete alcohol cessation 2. Follow-up next week with GI - bring all your medications (bottles) and handouts from admission 3. Measure your weight daily and number of urinations. 4. Exercise/movement as you feel up to. Wrapping your legs and elevation and cool compresses to your legs for comfort. Activity Level: No Restrictions and Activity as Tolerated Discharge Diet: 2 gm Sodium Diet Detail: goal: 120 ounces of all fluid sources a day. mix electrolytes powder and avoid free water intake. Follow Up Appointments: [facility] [Outside] - 04/03/23 12:55 pm (Appointment with Bogdan GIBBS for evaluation on liver disease. ) Emily Spears MD [Referring] - 04/30/23 10:10 am (New patient evaluations.) Jennifer Boyce DO [Staff Physician] - 04/12/23 (new PCP - establish care alcohol use disorder, ascites) Forms: [facility] Info Instructions
[2023-03-29 14:08] LABS: Anaplasma phagocyt PCR Not Detected; Babesia microti by PCR Not Detected; Babesia species by PCR Not Detected; Ehrlichia chaffeensis by PCR Not Detected; Ehrlichia ewingii/canis by PCR Not Detected; Ehrlichia muris-like by PCR Not Detected
--- NOTE | 2023-03-29 16:58 | PC.NURSE ---
Patient independent. Edema present but improving to bilateral LE. Denied pain. Abdomen remains distended and firm. Pt reports abdomen seems improved. Pt discharged at 1535. Pt declined wheelchair and ambulated to car in ER parking lot.
[2023-03-29 19:42] LABS: Calcium* 8.2 mg/dL (8.4-10.6)
[2023-03-29 22:56] LABS: Total T3 53 ng/dL (80-200)
== END 2023-03-29 15:35 | disposition home or self-care (01) | DRG 432 ==
LOC: ED 11:11 → MEDSURG 14:21
PROVIDERS: Family Medicine; Admitting Provider Family Medicine; Emergency Provider Family Medicine; Visit Provider Family Medicine
DX: K70.11 Alcoholic hepatitis with ascites (principal); K65.2 Spontaneous bacterial peritonitis; E87.1 Hypo-osmolality and hyponatremia; K70.31 Alcoholic cirrhosis of liver with ascites; F10.20 Alcohol dependence, uncomplicated; K70.0 Alcoholic fatty liver; R03.0 Elevated blood-pressure reading, without diagnosis of hypertension; R00.0 Tachycardia, unspecified; R40.2432 Glasgow coma scale score 3-8, at arrival to emergency department
CPT/HCPCS: 36415; 49083; 51798; 71260; 74177; 76705; 80048; 80053; 80074; 80076; 80306; 81001; 81003; 81015; 82042; 82077; 82140; 82150; 82248; 82330; 82803; 82945; 82977; 83605; 83615; 83690; 83735; 83880; 84145; 84157; 84439; 84443; 84480; 84484; 85025; 85027; 85610; 85730; 86140; 86618; 87040; 87070; 87086; 87205; 87798; 89051; 93005; 93306; 99285; A9153; A9270; J0696; J1940; J2060; J7030; J7050; P9047; Q9957; Q9967

== ENCOUNTER 2023-04-05 14:20 | Emergency (ER) | payer MEDICAID, SELFPAY ==
[2023-04-05 14:25] VITALS: BP 153/100; RESP 20; TEMP 36.2; O2SAT 98; BMI 30.1
[2023-04-05 15:26] LABS: Basophils Percent Auto 0.2 % (0.0-3.0); Eosinophils Percent Auto 0.4 % (0.0-7.0); Hematocrit 35.8 % (37.0-53.0); Hemoglobin* 12.4 gm/dL (13.5-17.5); Immature Granulocytes Pct Auto 0.9 %; Lymphocytes Percent Auto 6.7 % (20-44); Mean Corpuscular HGB Conc 35 gm/dL (32-36); Mean Corpuscular Hemoglobin 37 pg (26-34); Mean Corpuscular Volume 106 fL (80-100); Monocytes Percent Auto 5.6 % (0.0-11.0); Neutrophils Percent Auto 86.2 % (42.0-72.0); Platelet Count* 833 K/uL (140-440); RDW Coefficient of Variation % 14.4 % (11.5-15.5); Red Blood Count 3.38 m/uL (4.30-5.90)
[2023-04-05 15:30] LABS: Slide Review Reflex Yes; White Blood Count* 27.45 K/uL (4.50-11.00)
[2023-04-05 15:43] LABS: Albumin* 3.5 g/dL (3.3-5.0)
[2023-04-05 15:44] LABS: Chloride* 83 mmol/L (96-114); Potassium* 4.7 mmol/L (3.6-5.1)
[2023-04-05 15:46] LABS: Alanine Aminotransferase* 120 U/L (4-50); Alkaline Phosphatase* 375 U/L (40-150); Anion Gap 9 mEq/L (7-15); Aspartate Amino Transferase* 383 U/L (12-35); Bilirubin Total* 8.7 mg/dL (0.1-1.5); Blood Urea Nitrogen* 10 mg/dL (5-24); Carbon Dioxide* 27 mmol/L (20-32); Creatinine* 0.9 mg/dL (0.5-1.5); Est. Creatinine Clearance* 129.93; Estimated Glomerular Filt Rate 109 ml/min; Total Protein* 7.3 g/dL (6.0-8.3)
[2023-04-05 15:47] LABS: Glucose* 106 mg/dL (60-115)
[2023-04-05 15:52] LABS: Sodium* 119 mmol/L (135-149)
--- NOTE | 2023-04-05 16:20 | ED.NURSE ---
patient's GI provider is Karime Lipscomb at [facility] able to reach at [phone]. Attempted to contact and is closed at 1600 and will open at 0700. patient is frustrated and upset with lab results and was told not to have any sodium, has been drinking gatorade and water. Lost 30 pounds of fluids in a short period of time.
[2023-04-05 16:24] LABS: Slide Review Acceptable Review (Acceptable)
--- NOTE | 2023-04-05 16:28 | ED.GENADULT ---
HPI - General Adult General Date Seen: 04/05/23 Chief complaint: Unspecified Complaint, Adult Stated complaint: Elevated white blood cell count, high K Time Seen by Provider: 04/05/23 15:14 Source: patient Mode of arrival: ambulatory Limitations: no limitations History of Present Illness HPI narrative: Patient is a 42 males history of alcoholic hepatitis presented emergency department for abnormal lab work. He states he was getting routine labs done with his GI specialist when they returned showing elevated white count, hyponatremia, hyperkalemia. He was just discharged from the hospital 1 week ago for the describes as anasarca. At that time his white count was around 19 at discharge knee appears to be lives at mid 120s for sodium. He states he has not been eating much 20 minutes all since he was discharged because he was told not to. He says he feels wonderful at this time has no complaints. He feels much healthier than he has last week. No complaints at this time Related Data Previous Rx's Medication Instructions Recorded folic acid 1 mg tablet 1 mg PO DAILY #30 tabs 03/29/23 furosemide 40 mg tablet 120 mg (3 x 40 mg) PO DAILY@0803/29/23 #90 tabs lorazepam 0.5 mg tablet 0.5 mg PO NIGHTLY PRN #30 tabs 03/29/23 multivitamin with folic acid 400 1 tab PO DAILY #30 tabs 03/29/23 mcg tablet (Thera) omeprazole 20 mg capsule,delayed 20 mg PO BID #60 caps 03/29/23 release spironolactone 100 mg tablet 300 mg (3 x 100 mg) PO DAILY@0800 03/29/23 #90 tabs thiamine mononitrate (vit B1) 100 250 mg (2.5 x 100 mg) PO BID #60 03/29/23 mg tablet (Vitamin B-1 tabs (mononitrate)) Review of Systems Status of ROS: Reports: 10 or more systems reviewed and unremarkable except as noted in History and below [facility] Medical History (Updated 04/05/23 @ 16:29 by Edgardo Magana, ) Hyponatremia ?E87.1 - Hypo-osmolality and hyponatremia (ICD-10) Alcohol use disorder ?F10.90 - Alcohol use, unspecified, uncomplicated (ICD-10) Elevated blood pressure reading ?R03.0 - Elevated blood-pressure reading, without diagnosis of hypertension (ICD-10) Surgical History (Updated 03/26/23 @ 14:04 by Charissa Hernandez MD) No history of previous surgery Family History (Updated 03/26/23 @ 14:46 by Rocky Dorsey MD) Other Cardiovascular disease Social History (Updated 03/26/23 @ 14:47 by Rocky Dorsey MD) Narrative: He lives with his and 2 children, ages 17 and 15, in [place]. 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 This spring he gave up on the physical labor of [employer] and lawn care. He does not smoke. He reports that formally he was a heavy consumer of alcohol and this became a problem for him so he quit 3 years ago. Some uncertainty as to when he resumed drinking and how much he resumed drinking in the past year What is your current living situation?: I presently have a place to live Problems where you live: no known problems Problems where you live details: NA In the past 12 months, utilities in danger of being shut off: no In the past 12 mos, have been you worried that your food would run out before you had money to buy more?: never true In the past 12 mos, the food you bought just didn't last and you didn't have money to buy more?: never true Highest level of school completed/degree received: some college, no degree Smoking Status: Never smoker How often do you have a drink containing alcohol: 2-3 times a week Alcohol type: other Alcohol type details: bud zero (no alcohol content) How many standard drinks containing alcohol do you have on a typical day: 1 or 2 How often do you have six or more drinks on one occasion: Never AUDIT-C Alcohol total score: 3 Non-prescribed substance use: denies use How often does anyone, including family, friends and others, physically hurt you: never How often does anyone, including family, friends and others, insult or talk down to you: never How often does anyone, including family, friends and others, threaten you with harm: never How often does anyone, including family, friends and others, scream or curse at you: never Exam Narrative: Exam Narrative: Const: Well-nourished, Well-developed, in no distress Eyes: PERRL, no conjunctival injection, and symmetrical lids ENMT: Atraumatic external nose and ears. Moist mucous membranes. Neck: Symmetric, trachea midline, No thyromegaly. CVS: RRR, No murmurs or gallops. Peripheral pulses 2+ and equal in all extremities RESP: Unlabored respiratory effort. Clear to auscultation bilaterally. GI: Nontender, No rebound or guarding. MSK:Extremities w/o deformity, Normal Active ROM Skin: Warm, Dry. No rashes or lesions. Neuro: Normal Muscle tone, No focal neurological deficits. Psych: Awake, Alert, & Oriented x3. Appropriate mood and affect. Const: Vital Signs, click to edit/add: Vital Signs - 24 hr 04/05/23 14:25 Temperature 97.2 F L Respiratory Rate 20 Blood Pressure [Ri ght Upper Arm] 153/100 H Pulse Oximetry 98 Oxygen Delivery Me thod Room Air Course Vital Signs Vital signs: Initial Vital Signs Temperature 97.2 F L 04/05/23 14:25 Temperature Source Temporal Artery Scan 04/05/23 14:25 Respiratory Rate 20 04/05/23 14:25 Blood Pressure 153/100 H 04/05/23 14:25 Blood Pressure Mean 117 H 04/05/23 14:25 Blood Pressure Position Sitting 04/05/23 14:25 Pulse Oximetry 98 04/05/23 14:25 Oxygen Delivery Method Room Air 04/05/23 14:25 Vital Signs Temperature 97.2 F L 04/05/23 14:25 Respiratory Rate 20 04/05/23 14:25 Blood Pressure 153/100 H 04/05/23 14:25 Pulse Oximetry 98 04/05/23 14:25 Oxygen Delivery Method Room Air 04/05/23 14:25 Temperature 97.2 F L 04/05/23 14:25 Respiratory Rate 20 04/05/23 14:25 Blood Pressure 153/100 H 04/05/23 14:25 Pulse Oximetry 98 04/05/23 14:25 Oxygen Delivery Method Room Air 04/05/23 14:25 Medical Decision Making MDM Narrative Medical decision making narrative: patient's for throughout male presented emergency department for abnormal lab work. He is otherwise feeling well. We will repeat the CBC and CMP at this time. CBC returned showing a white count of 27. The cans past lab work it appears he was living room 19 last week. This still could be likely secondary to his liver disease as he is showing no clear signs of infection. His looked lab work all appears within normal limits shows no concerning findings. We did do the CMP returning showing a potassium of 4.7 which is in normal limits. His sodium is also a critical low 119. I informed the patient he needs to be admitted for this at this time he is refusing. He states he was just eat sodium at home to bring the sodium back up. He says his sodium must be low because he has not been eating any. I spoke to him extensively about the risks of his hyponatremia. I explained what happens if it goes too low and what could happen if he gets corrected too fast. He has been multiple times was sore and he should use of home by could not give a clear answer and repeat the informed him he should be admitted to the hospital. He still states he would rather be discharged home. Do this I did speak to him about the importance of having follow-up lab work done tomorrow. Reji either see his GI specialist or return to the emergency department for repeat BMP to check his sodium levels. He is agreeable to this plan. The patient is clinically not intoxicated, free from distracting pain, appears to have intact insight, judgment and reason and in my medical opinion has the capacity to make decisions. The patient is also not under any duress to leave the hospital. In this scenario, it would be battery to subject a patient to treatment against his/her will. I have voiced my concerns for the patient's health given that a full evaluation and treatment had not occurred. I have discussed the need for continued evaluation to determine if their symptoms are caused by a condition that present risk of or morbidity. Risks including but not limited to , permanent disability, prolonged hospitalization, prolonged illness, were discussed. I discussed the specific benefits of additional treatment, as well as tried offering alternative options in hopes that the patient might be amenable to partial evaluation and treatment which would be medically beneficial to the patient. However, the patient declined my options and insisted on leaving. Because I have been unable to convince the patient to stay, I answered all of their questions about their condition and asked them to return to the ED as soon as possible to complete their evaluation, especially if their symptoms worsen or do not improve. I emphasized that leaving against medical advice does not preclude returning here for further evaluation. I asked the patient to return if they change their mind about the further evaluation and treatment. I strongly encouraged the patient to return to this Emergency Department or any Emergency Department at any time, particularly with worsening symptoms. Lab Data Labs: Lab Results 04/05/23 Range/Units 15:14 WBC 27.45 H* (4.50-11.00) K/uL RBC 3.38 L (4.30-5.90) m/uL Hgb 12.4 L (13.5-17.5) gm/dL Hct 35.8 L (37.0-53.0) % MCV 106 H (80-100) fL MCH 37 H (26-34) pg MCHC 35 (32-36) gm/dL RDW Coeff of Ellen 14.4 (11.5-15.5) % Plt Count 833 H (140-440) K/uL Neut % (Auto) 86.2 H (42.0-72.0) % Lymph % (Auto) 6.7 L (20-44) % Lawrence % (Auto) 5.6 (0.0-11.0) % Eos % (Auto) 0.4 (0.0-7.0) % Baso % (Auto) 0.2 (0.0-3.0) % Neut # (Auto) 23.70 H (1.7-7.0) K/uL Lymph # (Auto) 1.80 (0.90-2.90) K/uL Lawrence # (Auto) 1.50 H (0.00-0.90) K/UL Eos # (Auto) 0.10 (0.00-0.50) K/uL Baso # (Auto) 0.10 (0.00-0.30) K/uL Abs Immat Gran (auto) 0.20 (0.00-0.30) K/uL Imm/Tot Granulo (auto) 0.9 % Diff Slide Review Acceptable Review (Acceptable) Sodium 119 L* (135-149) mmol/L Potassium 4.7 (3.6-5.1) mmol/L Chloride 83 L (96-114) mmol/L Carbon Dioxide 27 (20-32) mmol/L Anion Gap 9 (7-15) mEq/L BUN 10 (5-24) mg/dL Creatinine 0.9 (0.5-1.5) mg/dL Estimated Creat Clear 129.93 Estimated GFR 109 ml/min Glucose 106 (60-115) mg/dL Calcium 9.0 (8.4-10.6) mg/dL Magnesium 2.0 (1.5-2.6) mg/dL Total Bilirubin 8.7 H (0.1-1.5) mg/dL AST 383 H (12-35) U/L ALT 120 H (4-50) U/L Alkaline Phosphatase 375 H (40-150) U/L Total Protein 7.3 (6.0-8.3) g/dL Albumin 3.5 (3.3-5.0) g/dL Discharge Plan Discharge Clinical Impression: Hyponatremia Patient Disposition: Left Against Medical Advice Condition: Stable Instructions: Hyponatremia (ED) Additional Instructions: Your sodium is critically low I recommend you do not leave against medical advice. Since you do want to leave they will it is is extremely important you have follow-up lab work done tomorrow ED with your GI specialist or back here in the emergency department. If he starts developing any type of symptoms at all, no matter serrano minor you believe, please return immediately to the emergency department. Do not trying to put off. If your sodium gets worse or changes too fast he can cause irreversible brain damage. Prescriptions: No Action furosemide 40 mg Tablet 120 mg PO DAILY@0800 Qty: 90 0RF spironolactone 100 mg Tablet 300 mg PO DAILY@0800 Qty: 90 0RF lorazepam 0.5 mg Tablet 0.5 mg PO NIGHTLY PRNQty: 30 0RF omeprazole 20 mg Capsule,Delayed Release(Dr/Ec) 20 mg PO BID Qty: 60 0RF folic acid 1 mg Tablet 1 mg PO DAILY Qty: 30 0RF thiamine mononitrate (vit B1) [Vitamin B-1 (mononitrate)] 100 mg Tablet 250 mg PO BID Qty: 60 0RF multivitamin with folic acid [Thera] 400 mcg Tablet 1 tab PO DAILY Qty: 30 0RF Follow Up/Referrals: Provider,Not a Local [Primary Care Provider] - Stand Alone Forms: [facility] Info Instructions
--- NOTE | 2023-04-05 16:56 | ED.NURSE ---
patient is wanting to go home and return for a lab draw tomorrow at [facility]. patient stated will probably return to the ED as will take several day if not 2 weeks for the labs to be completed. Patient is very frustrated and going home to eat some salt. Dr. Magana is in to see patient and talk about AMA reasons to return for of symptoms. Patient is agreeable to this.
== END 2023-04-05 17:06 | disposition left against medical advice (07) ==
PROVIDERS: Emergency Provider Student in an Organized Health Care Education/Training Program
DX: E87.1 Hypo-osmolality and hyponatremia (principal)
CPT/HCPCS: 36415; 80053; 83735; 85025; 99283

== ENCOUNTER 2023-04-06 05:36 | Emergency (ER) | payer MEDICAID, SELFPAY ==
[2023-04-06 05:45] VITALS: BP 147/109; PULSE 115; RESP 20; TEMP 36.3; O2SAT 94; BMI 29.8
[2023-04-06 06:13] LABS: Basophils Percent Auto 0.2 % (0.0-3.0); Eosinophils Percent Auto 0.3 % (0.0-7.0); Hematocrit 34.8 % (37.0-53.0); Hemoglobin* 12.1 gm/dL (13.5-17.5); Immature Granulocytes Pct Auto 1.8 %; Mean Corpuscular HGB Conc 35 gm/dL (32-36); Mean Corpuscular Hemoglobin 37 pg (26-34); Mean Corpuscular Volume 106 fL (80-100); Monocytes Percent Auto 5.3 % (0.0-11.0); Neutrophils Percent Auto 86.4 % (42.0-72.0); Platelet Count* 807 K/uL (140-440); RDW Coefficient of Variation % 14.6 % (11.5-15.5); Red Blood Count 3.29 m/uL (4.30-5.90)
[2023-04-06 06:24] LABS: Albumin* 3.5 g/dL (3.3-5.0)
[2023-04-06 06:25] LABS: Chloride* 86 mmol/L (96-114); Potassium* 4.5 mmol/L (3.6-5.1)
[2023-04-06 06:27] LABS: Anion Gap 11 mEq/L (7-15); Aspartate Amino Transferase* 358 U/L (12-35); Bilirubin Direct* 5.9 mg/dL (0.0-0.5); Bilirubin Total* 7.8 mg/dL (0.1-1.5); Carbon Dioxide* 26 mmol/L (20-32); Creatinine* 0.9 mg/dL (0.5-1.5); Est. Creatinine Clearance* 129.93; Estimated Glomerular Filt Rate 109 ml/min; Total Protein* 7.1 g/dL (6.0-8.3)
[2023-04-06 06:28] LABS: Alanine Aminotransferase* 108 U/L (4-50); Alkaline Phosphatase* 356 U/L (40-150); Blood Urea Nitrogen* 10 mg/dL (5-24); Calcium* 8.8 mg/dL (8.4-10.6); Gamma Glutamyl Transpeptidase* 1197 U/L (8-55); Glucose* 111 mg/dL (60-115); Sodium* 123 mmol/L (135-149)
[2023-04-06 06:39] LABS: Slide Review Reflex Yes; White Blood Count* 25.15 K/uL (4.50-11.00)
[2023-04-06 06:46] LABS: Slide Review Acceptable Review (Acceptable)
--- NOTE | 2023-04-06 07:23 | ED_ITS ---
HPI - General Adult General Date Seen: 04/06/23 Chief complaint: Unspecified Complaint, Adult Stated complaint: here 12 hr ago, wants him back Time Seen by Provider: 04/06/23 05:54 Source: patient Mode of arrival: ambulatory Limitations: no limitations History of Present Illness HPI narrative: Patient is a 42-year-old chronic alcoholic who stopped drinking two weeks ago. He has been dealing with low sodium, high potassium, elevated LFTs. He is discharged from the hospital about one week ago on spironolactone 100 mg t.i.d. and furosemide 40 mg t.i.d.. He has been compliant with this. He was seen in the ER yesterday after having labs drawn in the GI clinic. He was called by the GI doctor in told that his potassium was critically high when actually was only mildly elevated. They offered him admission to the hospital yesterday but he declined. He has been restricting his sodium intake and yesterday he was told the does not need to do that any longer. He will be establishing care with a new PCP in [place]. His 1st appointment is 04/17/2023. He is feeling much better each day. He has diuresed about 30 lb over the past two weeks. He was told yesterday when he left that he should come back today and have his labs redrawn. He has had no fevers or chills. He denies any abdominal pain. I reviewed his labs and imaging and he does not have large volume ascites and therefore no therapeutic paracentesis was done. Related Data Previous Rx's Medication Instructions Recorded folic acid 1 mg tablet 1 mg PO DAILY #30 tabs 03/29/23 furosemide 40 mg tablet 120 mg (3 x 40 mg) PO DAILY@79903/29/23 #90 tabs lorazepam 0.5 mg tablet 0.5 mg PO NIGHTLY PRN #30 tabs 03/29/23 multivitamin with folic acid 400 1 tab PO DAILY #30 tabs 03/29/23 mcg tablet (Thera) omeprazole 20 mg capsule,delayed 20 mg PO BID #60 caps 03/29/23 release spironolactone 100 mg tablet 300 mg (3 x 100 mg) PO DAILY@0803/29/23 #90 tabs thiamine mononitrate (vit B1) 100 250 mg (2.5 x 100 mg) PO BID #60 03/29/23 mg tablet (Vitamin B-1 tabs (mononitrate)) Allergies Allergy/AdvReac Type Severity Reaction Status Date / Time erythromycin base Allergy Verified 04/06/23 06:07 Review of Systems Narrative: Review of systems is outlined above otherwise noted to be negative. [facility] Medical History (Updated 04/06/23 @ 07:07 by Saurabh Bob MD) Hyponatremia ?E87.1 - Hypo-osmolality and hyponatremia (ICD-10) Alcohol use disorder ?F10.90 - Alcohol use, unspecified, uncomplicated (ICD-10) Surgical History (Updated 03/26/23 @ 14:04 by Charissa Hernandez MD) No history of previous surgery Family History (Updated 03/26/23 @ 14:46 by Rocky Dorsey MD) Other Cardiovascular disease Social History (Updated 03/26/23 @ 14:47 by Rocky Dorsey MD) Narrative: He lives with his and 2 children, ages 17 and 15, in [place]. 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 This spring he gave up on the physical labor of [employer] and lawn care. He does not smoke. He reports that formally he was a heavy consumer of alcohol and this became a problem for him so he quit 3 years ago. Some uncertainty as to when he resumed drinking and how much he resumed drinking in the past year What is your current living situation?: I presently have a place to live Problems where you live: no known problems Problems where you live details: NA In the past 12 months, utilities in danger of being shut off: no In the past 12 mos, have been you worried that your food would run out before you had money to buy more?: never true In the past 12 mos, the food you bought just didn't last and you didn't have money to buy more?: never true Highest level of school completed/degree received: some college, no degree Smoking Status: Never smoker How often do you have a drink containing alcohol: 2-3 times a week Alcohol type: other Alcohol type details: bud zero (no alcohol content) How many standard drinks containing alcohol do you have on a typical day: 1 or 2 How often do you have six or more drinks on one occasion: Never AUDIT-C Alcohol total score: 3 Non-prescribed substance use: denies use How often does anyone, including family, friends and others, physically hurt you : never How often does anyone, including family, friends and others, insult or talk down to you: never How often does anyone, including family, friends and others, threaten you with harm: never How often does anyone, including family, friends and others, scream or curse at you: never service: No Exam Narrative: Exam Narrative: Vitals noted. HEENT: Conjunctiva icteric. Lungs: Clear to auscultation in all alba. No wheezes, rales, rhonchi. Heart: Regular rate and rhythm without murmur. Abdomen: Distended, firm and nontender. No guarding, rigidity, rebound. Bowel sounds are normal. No palpable masses. Extremities: 3+ edema. Good distal pulses. Skin: He is jaundiced. Neurologic: Awake, alert, fully oriented. Neurologic exam is nonfocal. Const: Vital Signs, click to edit/add: Vital Signs - 24 hr 04/06/23 05:45 Temperature 97.3 F L Pulse Rate [Left P ulse Oximeter] 115 H Respiratory Rate 20 Blood Pressure [Le ft Upper Arm] 147/109 H Pulse Oximetry 94 Oxygen Delivery Me thod Room Air Course Course Hospital Course: Patient was seen and examined. His labs are repeated. They are all slightly [place] [address]. Hemoglobin is 12.1. Platelet count is elevated. Sodium is up to 123. Potassium is 4.5. BUN 10, creatinine 0.9. Bilirubin is down to 7.8. AST 358, ALT 108, GGT 1197. A plan has been made for outpatient labs again in five days to be drawn here in the hospital lab. Results will go to his PCP in [place]. No change in his medications are necessary. Vital Signs Vital signs: Initial Vital Signs Temperature 97.3 F L 04/06/23 05:45 Temperature Source Temporal Artery Scan 04/06/23 05:45 Pulse Rate 115 H 04/06/23 05:45 Pulse Rhythm Regular 04/06/23 05:45 Respiratory Rate 20 04/06/23 05:45 Blood Pressure 147/109 H 04/06/23 05:45 Blood Pressure Mean 121 H 04/06/23 05:45 Blood Pressure Position Semi-Fowlers 04/06/23 05:45 Pulse Oximetry 94 04/06/23 05:45 Oxygen Delivery Method Room Air 04/06/23 05:45 Vital Signs Temperature 97.3 F L 04/06/23 05:45 Pulse Rate 115 H 04/06/23 05:45 Respiratory Rate 20 04/06/23 05:45 Blood Pressure 147/109 H 04/06/23 05:45 Pulse Oximetry 94 04/06/23 05:45 Oxygen Delivery Method Room Air 04/06/23 05:45 Temperature 97.3 F L 04/06/23 05:45 Pulse Rate 115 H 04/06/23 05:45 Respiratory Rate 04/06/23 05:45 Blood Pressure 147/109 H 04/06/23 05:45 Pulse Oximetry 94 04/06/23 05:45 Oxygen Delivery Method Room Air 04/06/23 05:45 Medical Decision Making Lab Data Labs: Lab Results 04/06/23 Range/Units 06:00 WBC 25.15 H* (4.50-11.00) K/uL RBC 3.29 L (4.30-5.90) m/uL Hgb 12.1 L (13.5-17.5) gm/dL Hct 34.8 L (37.0-53.0) % MCV 106 H (80-100) fL MCH 37 H (26-34) pg MCHC 35 (32-36) gm/dL RDW Coeff of Ellen 14.6 (11.5-15.5) % Plt Count 807 H (140-440) K/uL Neut % (Auto) 86.4 H (42.0-72.0) % Lymph % (Auto) 6.0 L (20-44) % Martin % (Auto) 5.3 (0.0-11.0) % Eos % (Auto) 0.3 (0.0-7.0) % Baso % (Auto) 0.2 (0.0-3.0) % Neut # (Auto) 21.70 H (1.7-7.0) K/uL Lymph # (Auto) 1.50 (0.90-2.90) K/uL Martin # (Auto) 1.30 H (0.00-0.90) K/UL Eos # (Auto) 0.10 (0.00-0.50) K/uL Baso # (Auto) 0.10 (0.00-0.30) K/uL Abs Immat Gran (auto) 0.50 H (0.00-0.30) K/uL Imm/Tot Granulo (auto) 1.8 % Diff Slide Review Acceptable Review (Acceptable) Sodium 123 L* (135-149) mmol/L Potassium 4.5 (3.6-5.1) mmol/L Chloride 86 L (96-114) mmol/L Carbon Dioxide 26 (20-32) mmol/L Anion Gap 11 (7-15) mEq/L BUN 10 (5-24) mg/dL Creatinine 0.9 (0.5-1.5) mg/dL Estimated Creat Clear 129.93 Estimated GFR 109 ml/min Glucose 111 (60-115) mg/dL Calcium 8.8 (8.4-10.6) mg/dL Total Bilirubin 7.8 H (0.1-1.5) mg/dL Direct Bilirubin 5.9 H (0.0-0.5) mg/dL GGT 1197 H (8-55) U/L AST 358 H (12-35) U/L ALT 108 H (4-50) U/L Alkaline Phosphatase 356 H (40-150) U/L Total Protein 7.1 (6.0-8.3) g/dL Albumin 3.5 (3.3-5.0) g/dL Lipase Cancelled Discharge Plan Discharge Clinical Impression: Alcoholic hepatitis Patient Disposition: Home, Self-Care Additional Instructions: Continue your current medications. Stay hydrated. An electrolyte solution is best. Liberalize your sodium intake. Return on 04/11/2023 for an outpatient lab draw. Keep your follow-up appointment on 04/17/2023. Prescriptions: No Action furosemide 40 mg Tablet 120 mg PO DAILY@0800 Qty: 90 0RF spironolactone 100 mg Tablet 300 mg PO DAILY@0800 Qty: 90 0RF lorazepam 0.5 mg Tablet 0.5 mg PO NIGHTLY PRNQty: 30 0RF omeprazole 20 mg Capsule,Delayed Release(Dr/Ec) 20 mg PO BID Qty: 60 0RF folic acid 1 mg Tablet 1 mg PO DAILY Qty: 30 0RF thiamine mononitrate (vit B1) [Vitamin B-1 (mononitrate)] 100 mg Tablet 250 mg PO BID Qty: 60 0RF multivitamin with folic acid [Thera] 400 mcg Tablet 1 tab PO DAILY Qty: 30 0RF Follow Up/Referrals: Provider,Not a Local [Primary Care Provider] - Emily Spencer PA-C [Physician Licensed Pesticide Applicator] - Stand Alone Forms: [employer] Info Instructions
== END 2023-04-06 07:25 | disposition home or self-care (01) ==
PROVIDERS: Emergency Provider Family Medicine
DX: K70.10 Alcoholic hepatitis without ascites (principal)
CPT/HCPCS: 36415; 80048; 80076; 82977; 83690; 85025; 99282; 99283

== ENCOUNTER 2023-04-11 05:33 | Emergency (ER) | payer MEDICAID, SELFPAY ==
[2023-04-11 05:45] VITALS: BP 143/100; PULSE 120; RESP 20; TEMP 36.2; O2SAT 96; BMI 31.0
--- NOTE | 2023-04-11 06:12 | CRLHL7_ITS ---
For Patients: As a result of the Century Cures Act, medical imaging exams and procedure reports are released immediately into your electronic medical record. You may view this report before your referring provider. If you have questions, please contact your health care provider. Indication: Ascites. Technique: Limited 4 quadrant irrigation of the abdomen and pelvis for assessment of ascites. Comparison: 03/27/2023 Findings: Moderate to large volume ascites concentrated in the right upper quadrant and bilateral lower quadrants. Prominent spleen, although not included completely on the images submitted and therefore not measurable. Impression: Moderate to large volume ascites as described above. Dictated by Jaime Simmons MD @ 04/11/2023 7:48:01 AM (Electronically Signed)
--- NOTE | 2023-04-11 06:33 | ED.GENADULT ---
HPI - General Adult General Chief complaint: Unspecified Complaint, Adult Stated complaint: blood draw- speak with Time Seen by Provider: 04/11/23 06:03 Source: patient Mode of arrival: ambulatory Limitations: no limitations History of Present Illness HPI narrative: 42-year-old male presents the emergency department for repeat blood draw. He reports that he was told to come in 5 days after his previous blood draw to have his labs rechecked. He was under the impression that this was supposed to be through the emergency department. He also states that he fluid abdomen is getting more distended, his weight is up a few lb per his report.. He is on a diuretic regimen for alcoholic hepatitis. Reports good compliance with this. I can see that his weight was 2 kilos lower on a standing scale not just a reported weight 5 days ago. This was down significantly from hospitalization though. He reports that the ascites is new. I can see lots of notes that document a swollen abdomen. Apparently he was scheduled to have a paracentesis but he did not have a large volume of ascites at the time, therefore the procedure was canceled. He denies fevers, no dysuria. No nausea or vomiting. His abdomen feels swollen and distended and uncomfortable but there is no specific shortness of breath. No chest pain. Is clear from the outpatient records that he was supposed to come just have labs drawn at the outpatient lab rather than in the emergency room. I reviewed the outpatient note as well as the hospital discharge summary extensively documenting Related Data Previous Rx's Medication Instructions Recorded folic acid 1 mg tablet 1 mg PO DAILY #30 tabs 03/29/23 furosemide 40 mg tablet 120 mg (3 x 40 mg) PO DAILY@79903/29/23 #90 tabs lorazepam 0.5 mg tablet 0.5 mg PO NIGHTLY PRN #30 tabs 03/29/23 multivitamin with folic acid 400 1 tab PO DAILY #30 tabs 03/29/23 mcg tablet (Thera) omeprazole 20 mg capsule,delayed 20 mg PO BID #60 caps 03/29/23 release spironolactone 100 mg tablet 300 mg (3 x 100 mg) PO DAILY@0803/29/23 #90 tabs thiamine mononitrate (vit B1) 100 250 mg (2.5 x 100 mg) PO BID #60 03/29/23 mg tablet (Vitamin B-1 tabs (mononitrate)) Allergies Allergy/AdvReac Type Severity Reaction Status Date / Time erythromycin base Allergy Verified 04/11/23 05:44 [facility] Medical History (Updated 04/11/23 @ 07:27 by Mariza Pino MD) Hyponatremia ?E87.1 - Hypo-osmolality and hyponatremia (ICD-10) Alcohol use disorder ?F10.90 - Alcohol use, unspecified, uncomplicated (ICD-10) Surgical History (Updated 03/26/23 @ 14:04 by Charissa Hernandez MD) No history of previous surgery Family History (Updated 03/26/23 @ 14:46 by Rocky Dorsey MD) Other Cardiovascular disease Social History (Updated 03/26/23 @ 14:47 by Rocky Dorsey MD) Narrative: He lives with his and 2 children, ages 17 and 15, in [place]. 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 This spring he gave up on the physical labor of [employer] and lawn care. He does not smoke. He reports that formally he was a heavy consumer of alcohol and this became a problem for him so he quit 3 years ago. Some uncertainty as to when he resumed drinking and how much he resumed drinking in the past year What is your current living situation?: I presently have a place to live Problems where you live: no known problems Problems where you live details: NA In the past 12 months, utilities in danger of being shut off: no In the past 12 mos, have been you worried that your food would run out before you had money to buy more?: never true In the past 12 mos, the food you bought just didn't last and you didn't have money to buy more?: never true Highest level of school completed/degree received: some college, no degree Smoking Status: Never smoker How often do you have a drink containing alcohol: 2-3 times a week Alcohol type: other Alcohol type details: bud zero (no alcohol content) How many standard drinks containing alcohol do you have on a typical day: 1 or 2 How often do you have six or more drinks on one occasion: Never AUDIT-C Alcohol total score: 3 Non-prescribed substance use: denies use How often does anyone, including family, friends and others, physically hurt you: never How often does anyone, including family, friends and others, insult or talk down to you: never How often does anyone, including family, friends and others, threaten you with harm: never How often does anyone, including family, friends and others, scream or curse at you: never service: No Exam Const: Vital Signs, click to edit/add: Vital Signs - 24 hr 04/11/23 05:45 Temperature 97.1 F L Pulse Rate [Pulse Oximeter] 120 H Respiratory Rate 20 Blood Pressure [Ri ght Upper Arm] 143/100 H Pulse Oximetry 96 Oxygen Delivery Me thod Room Air Documenting provider has reviewed patient's vital signs: yes Common normals: no apparent distress Other: Answers questions clearly, polite and cooperative. Mild confusion regarding details of care HENMT: Common normals: normocephalic Head and scalp: normocephalic Mouth: oral and palatal mucosa normal Throat: posterior oropharynx normal Eye: Other: Mild scleral icterus. Normal visual gaze. Neck & C-Spine: Common normals: full ROM and no lymphadenopathy Chest: Common normals: inspection of chest normal Resp: Common normals: normal respiratory effort Other: Lung sounds slightly decreased at the bases. No crackles. Cardio: Common normals: regular rate, regular rhythm, S1 normal heart sound, S2 normal heart sound and no murmurs Rate: regular rate Rhythm: regular rhythm Heart sounds: S1 normal and S2 normal GI: Other: Protuberant abdomen with significant ascites. I cannot palpate the borders of the organs due to ascites. No tenderness or warmth. Bowel sounds do sound normoactive. Extremity: Other: 1+ edema to lower extremities. Neuro: Speech: speech normal Gait (neuro): normal gait Motor exam: no tremor noted and no movement abnormalities noted Psych: Attitude: engaged Activity/motor behavior: appropriate eye contact Insight: fair Judgement: fair Skin: Common normals: no rashes or lesions noted General skin exam: no rashes or lesions noted Course Course Hospital Course: Chronic hyponatremia, patient confused that he was supposed to have an outpatient lab draw rather than be seen in the ED. Acutely though, he is concerned about the increase in ascites. His weight is up 2 kilos in 5 days. I do appreciate a significant amount of ascites in do think he could potentially benefit from a paracentesis or potentially adjustment of his diuretics. I will obtain labs and ultrasound. Consider surgical consult or GI consult. Reevaluation(s) Time of Reevaluation #1: 07:27 Reevaluation #1: Discussed lab and imaging findings with patient. Upon further questioning, it is quite clear that he is not understanding his fluid restriction. He is drinking at least 5L of these Gatorade electrolyte solutions per day and is not at all adhering to his sodium restrictions. He is taking his water pills but it is very difficult to titrate when he is clearly taking in more than 4 times his maximum amount of fluid. Stressed that his sodium is going down not because he is not eating enough salt but because he is taking in too much fluid. I stressed the importance of him needing to come into the hospital for fluid restriction and titration of his diuretics. He declines to do so. Again I discussed my rationale, the importance of more education regarding management of his liver disease. He will keep his appointment with his specialist in 2 days. He is willing to sign the against medical advice form. [place]sequences clearly outlined. He does seem to have appropriate medical decision making capacity and I cannot justify need for overriding this Vital Signs Vital signs: Initial Vital Signs Temperature 97.1 F L 04/11/23 05:45 Temperature Source Temporal Artery Scan 04/11/23 05:45 Pulse Rate 120 H 04/11/23 05:45 Respiratory Rate 20 04/11/23 05:45 Blood Pressure 143/100 H 04/11/23 05:45 Blood Pressure Mean 114 H 04/11/23 05:45 Pulse Oximetry 96 04/11/23 05:45 Oxygen Delivery Method Room Air 04/11/23 05:45 Vital Signs Temperature 97.1 F L 04/11/23 05:45 Pulse Rate 120 H 04/11/23 05:45 Respiratory Rate 20 04/11/23 05:45 Blood Pressure 143/100 H 04/11/23 05:45 Pulse Oximetry 96 04/11/23 05:45 Oxygen Delivery Method Room Air 04/11/23 05:45 Temperature 97.1 F L 04/11/23 05:45 Pulse Rate 120 H 04/11/23 05:45 Respiratory Rate 20 04/11/23 05:45 Blood Pressure 143/100 H 04/11/23 05:45 Pulse Oximetry 96 04/11/23 05:45 Oxygen Delivery Method Room Air 04/11/23 05:45 Medical Decision Making Lab Data Labs: Lab Results 04/11/23 Range/Units 06:27 WBC 21.27 H (4.50-11.00) K/uL RBC 3.50 L (4.30-5.90) m/uL Hgb 12.7 L (13.5-17.5) gm/dL Hct 36.3 L (37.0-53.0) % MCV 104 H (80-100) fL MCH 36 H (26-34) pg MCHC 35 (32-36) gm/dL RDW Coeff of Ellen 13.3 (11.5-15.5) % Plt Count 686 H (140-440) K/uL Neut % (Auto) 82.8 H (42.0-72.0) % Lymph % (Auto) 6.7 L (20-44) % [place] % (Auto) 7.5 (0.0-11.0) % Eos % (Auto) 0.7 (0.0-7.0) % Baso % (Auto) 0.4 (0.0-3.0) % Neut # (Auto) 17.60 H (1.7-7.0) K/uL Lymph # (Auto) 1.40 (0.90-2.90) K/uL [place] # (Auto) 1.60 H (0.00-0.90) K/UL Eos # (Auto) 0.10 (0.00-0.50) K/uL Baso # (Auto) 0.10 (0.00-0.30) K/uL Abs Immat Gran (auto) 0.40 H (0.00-0.30) K/uL Imm/Tot Granulo (auto) 1.9 % INR 1.18 H (0.91-1.10) Sodium 115 L* (135-149) mmol/L Potassium 4.7 (3.6-5.1) mmol/L Chloride 81 L (96-114) mmol/L Carbon Dioxide 23 (20-32) mmol/L Anion Gap 11 (7-15) mEq/L BUN 16 (5-24) mg/dL Creatinine 1.0 (0.5-1.5) mg/dL Estimated Creat Clear 116.94 Estimated GFR 96 ml/min Glucose (60-115) mg/dL Calcium 8.4 (8.4-10.6) mg/dL Total Bilirubin 6.8 H (0.1-1.5) mg/dL Direct Bilirubin 5.1 H (0.0-0.5) mg/dL AST 276 H (12-35) U/L ALT 100 H (4-50) U/L Alkaline Phosphatase 315 H (40-150) U/L Ammonia 37.0 H (13.1-30.0) umol/L Total Protein 6.8 (6.0-8.3) g/dL Albumin 3.3 (3.3-5.0) g/dL Discharge Plan Discharge Clinical Impression: Hyponatremia Patient Disposition: Left Against Medical Advice Condition: Stable Instructions: Hyponatremia (ED) Additional Instructions: As we discussed, your salt levels are critically low. You need to come in the hospital. It is also quite clear that you are not understanding your fluid restriction. Your GI specialist has recommended that you take between 5858-7198 mL per day. For perspective, this is only a total of 50 oz to 75 oz of fluid per day. You are drinking over 5 L of fluid per day. This is the reason your water pills are not working and you are getting so much swelling in your belly. You were told to stay under 2 g of sodium per day also. I cannot stress enough though that your main problem is fluid. I have advised you to come into the hospital for adjustment of your water pills. You have at adamantly refused to do so despite clear explaining of the benefits and risk of this. I am pleased to see that your liver is improving. Unless you get this fluid balance and water pills under control, it will not continue to do so. Activity Level: Activity as Tolerated Discharge Diet: 2 gm Sodium and 1500 ml Fluid Restriction Prescriptions: No Action furosemide 40 mg Tablet 120 mg PO DAILY@0800 Qty: 90 0RF spironolactone 100 mg Tablet 300 mg PO DAILY@0800 Qty: 90 0RF lorazepam 0.5 mg Tablet 0.5 mg PO NIGHTLY PRNQty: 30 0RF omeprazole 20 mg Capsule,Delayed Release(Dr/Ec) 20 mg PO BID Qty: 60 0RF folic acid 1 mg Tablet 1 mg PO DAILY Qty: 30 0RF thiamine mononitrate (vit B1) [Vitamin B-1 (mononitrate)] 100 mg Tablet 250 mg PO BID Qty: 60 0RF multivitamin with folic acid [Thera] 400 mcg Tablet 1 tab PO DAILY Qty: 30 0RF Follow Up/Referrals: Provider,Not a Local [Primary Care Provider] - Stand Alone Forms: [employer] Info Instructions
[2023-04-11 06:34] LABS: Basophils Percent Auto 0.4 % (0.0-3.0); Eosinophils Percent Auto 0.7 % (0.0-7.0); Hematocrit 36.3 % (37.0-53.0); Hemoglobin* 12.7 gm/dL (13.5-17.5); Immature Granulocytes Pct Auto 1.9 %; Lymphocytes Percent Auto 6.7 % (20-44); Mean Corpuscular HGB Conc 35 gm/dL (32-36); Mean Corpuscular Hemoglobin 36 pg (26-34); Mean Corpuscular Volume 104 fL (80-100); Monocytes Percent Auto 7.5 % (0.0-11.0); Neutrophils Percent Auto 82.8 % (42.0-72.0); Platelet Count* 686 K/uL (140-440); RDW Coefficient of Variation % 13.3 % (11.5-15.5); White Blood Count* 21.27 K/uL (4.50-11.00)
[2023-04-11 06:46] LABS: Slide Review Reflex No
[2023-04-11 06:47] LABS: Albumin* 3.3 g/dL (3.3-5.0)
[2023-04-11 06:48] LABS: Chloride* 81 mmol/L (96-114); INR 1.18 (0.91-1.10); Potassium* 4.7 mmol/L (3.6-5.1); Prothrombin Time 15.7 Seconds
[2023-04-11 06:50] LABS: Bilirubin Direct* 5.1 mg/dL (0.0-0.5); Bilirubin Total* 6.8 mg/dL (0.1-1.5); Est. Creatinine Clearance* 116.94; Estimated Glomerular Filt Rate 96 ml/min
[2023-04-11 06:51] LABS: Alanine Aminotransferase* 100 U/L (4-50); Alkaline Phosphatase* 315 U/L (40-150); Aspartate Amino Transferase* 276 U/L (12-35); Blood Urea Nitrogen* 16 mg/dL (5-24); Calcium* 8.4 mg/dL (8.4-10.6); Carbon Dioxide* 23 mmol/L (20-32); Total Protein* 6.8 g/dL (6.0-8.3)
[2023-04-11 07:03] LABS: Anion Gap 11 mEq/L (7-15); Sodium* 115 mmol/L (135-149)
== END 2023-04-11 07:43 | disposition left against medical advice (07) ==
PROVIDERS: Emergency Provider Family Medicine
DX: E87.1 Hypo-osmolality and hyponatremia (principal)
CPT/HCPCS: 36415; 76705; 80048; 80076; 82140; 85025; 85610; 99283; 99284

== ENCOUNTER 2023-04-17 10:42 | Inpatient (IN) | payer MEDICAID, SELFPAY ==
[2023-04-17] VITALS (21 sets, daily range): BP systolic 112–136; BP diastolic 70–98; PULSE 104–128; RESP 16–20; TEMP 36.1–36.8; O2SAT 92–97; BMI 31.6; BMI 31.8
--- NOTE | 2023-04-17 11:21 | ED_ITS ---
HPI - SOB/Dyspnea General Time Seen by Provider: 11:21 Date Seen: 04/17/23 Chief Complaint: Shortness of Breath/Dyspnea Stated Complaint: shortness of breath,edema Time Seen by Provider: 04/17/23 11:09 Source: patient and RN notes reviewed Mode of arrival: ambulatory Limitations: no limitations History of Present Illness HPI Narrative: Kannan is a 42-year-old male with a alcoholic cirrhotic liver disease. He is back in today with tense abdomen, feels like it could explode, significant lower extremity edema, shortness of breath. He does state if he breathes through his nose he can breathe fine but if he breathes through his mouth he feels short of breath. He has no chest pain. He has abdominal pain that sharp if he attempts to stand up. His belly feels really tense. He states he is scheduled to have a paracentesis here on in 2 days. He denies any night sweats, no fevers or chills. He was hospitalized here at the end of March for liver disease complications, was initially treated with ceftriaxone for possible spontaneous bacterial peritonitis. He states he did follow-up with [facility] in the interim. He is living at home, states he cannot manage. He is not drinking at all per report. He is taking his diuretics, is on furosemide and spironolactone. He states his feet and legs are just blown up, thinks he is retaining over 20 lb of fluid. He was noted to be tachycardic during his hospitalization here, echo was reportedly normal. Related Data Home oxygen amount: none Previous Rx's Medication Instructions Recorded folic acid 1 mg tablet 1 mg PO DAILY #30 tabs 03/29/23 furosemide 40 mg tablet 120 mg (3 x 40 mg) PO DAILY@0803/29/23 #90 tabs lorazepam 0.5 mg tablet 0.5 mg PO NIGHTLY PRN #30 tabs 03/29/23 multivitamin with folic acid 400 1 tab PO DAILY #30 tabs 03/29/23 mcg tablet (Thera) omeprazole 20 mg capsule,delayed 20 mg PO BID #60 caps 03/29/23 release spironolactone 100 mg tablet 300 mg (3 x 100 mg) PO DAILY@0800 03/29/23 #90 tabs thiamine mononitrate (vit B1) 100 250 mg (2.5 x 100 mg) PO BID #60 03/29/23 mg tablet (Vitamin B-1 tabs (mononitrate)) Allergies Allergy/AdvReac Type Severity Reaction Status Date / Time erythromycin base Allergy Verified 04/17/23 09:32 Review of Systems Status of ROS: Reports: 6 or more systems reviewed and unremarkable except as noted in History and below [facility] History Hyponatremia ?E87.1 - Hypo-osmolality and hyponatremia (ICD-10) Alcohol use disorder ?F10.90 - Alcohol use, unspecified, uncomplicated (ICD-10) Surgical History No history of previous surgery Family History (Updated 03/26/23 @ 14:46 by Rocky Dorsey MD) Other Cardiovascular disease Social History Narrative: He lives with his and 2 children, ages 17 and 15, in [place]. 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 This spring he gave up on the physical labor of [employer] and lawn care. He does not smoke. He reports that formally he was a heavy consumer of alcohol and this became a problem for him so he quit 3 years ago. Some uncertainty as to when he resumed drinking and how much he resumed drinking in the past year What is your current living situation?: I presently have a place to live Problems where you live: no known problems Problems where you live details: NA In the past 12 months, utilities in danger of being shut off: no In the past 12 mos, have been you worried that your food would run out before you had money to buy more?: never true In the past 12 mos, the food you bought just didn't last and you didn't have money to buy more?: never true Highest level of school completed/degree received: some college, no degree Smoking Status: Never smoker How often do you have a drink containing alcohol: never How often do you have six or more drinks on one occasion: Never AUDIT-C Alcohol total score: 0 Non-prescribed substance use: denies use How often does anyone, including family, friends and others, physically hurt you : never How often does anyone, including family, friends and others, insult or talk down to you: never How often does anyone, including family, friends and others, threaten you with harm: never How often does anyone, including family, friends and others, scream or curse at you: never service: No Exam Const: Vital Signs, click to edit/add: Vital Signs - 24 hr 04/17/23 10:49 04/17/23 11:20 04/17/23 11:21 Temperature 97 F L Pulse Rate 121 H 121 H Pulse Rate [Pulse Oximeter] 128 H Respiratory Rate 20 Blood Pressure 114/91 H Blood Pressure [Ri ght Upper Arm] 126/92 H Pulse Oximetry 97 94 94 Oxygen Delivery Me thod Room Air 04/17/23 11:28 04/17/23 11:30 04/17/23 11:31 Temperature Pulse Rate 119 H 122 H Pulse Rate [Pulse Oximeter] Respiratory Rate Blood Pressure 115/95 H Blood Pressure [Ri ght Upper Arm] Pulse Oximetry 94 94 94 Oxygen Delivery Me thod 04/17/23 11:45 04/17/23 12:17 04/17/23 12:18 Temperature Pulse Rate 118 H 118 H 118 H Pulse Rate [Pulse Oximeter] Respiratory Rate Blood Pressure 115/89 Blood Pressure [Ri ght Upper Arm] Pulse Oximetry 94 94 93 Oxygen Delivery Me thod 04/17/23 12:30 04/17/23 12:33 Temperature Pulse Rate 118 H 118 H Pulse Rate [Pulse Oximeter] Respiratory Rate Blood Pressure 112/87 Blood Pressure [Ri ght Upper Arm] Pulse Oximetry 94 94 Oxygen Delivery Me thod This 42-year-old male is alert, interactive, no apparent distress. He has a most definitely protuberant abdomen visibly. Conjugate gaze, scleral icterus noted. Symmetrical facial function, speech is normal. Lungs are clear, hear no wheezing or crackles. CV is fast but regular, no murmur, normal S1 and S2. Abdomen is tense, distended but not tender. He will very likely has significant ascites. His lower extremities are floridly edematous, symmetrical. Documenting provider has reviewed patient's vital signs: yes Course Course ED Course: Patient did have an ultrasound on [place] sick showing large volume of ascites, will do a limited ultrasound to see status today but very likely will need a paracentesis, has significant lower extremity edema despite his diuretic regimen. Will update full complement of labs. EKG was obtained by nursing staff on arrival in has been reviewed, maintain sinus tachycardia. He currently is hemodynamically stable, no evidence of fevers or infection. Have preliminarily talked to the hospitalist service as I do think he may need to be a likely admit. Will await some of his labs to come back before we decide on admission here versus transfer. Reevaluation(s) Time of Reevaluation #1: 12:47 Reevaluation #1: Have reviewed with patient the hospitalist would prefer transfer to a tertiary center where there is GI. He would absolutely much prefer to stay here and does not want to transfer. Did subsequently talk to the hospitalist Dr. Recinos right after an conversation with him, she will accept. She will be talking to the general surgeon regarding paracentesis. Vital Signs Vital signs: Initial Vital Signs Temperature 97 F L 04/17/23 10:49 Temperature Source Temporal Artery Scan 04/17/23 10:49 Pulse Rate 128 H 04/17/23 10:49 Respiratory Rate 20 04/17/23 10:49 Blood Pressure 126/92 H 04/17/23 10:49 Blood Pressure Mean 103 04/17/23 10:49 Blood Pressure Position Supine 04/17/23 10:49 Pulse Oximetry 97 04/17/23 10:49 Oxygen Delivery Method Room Air 04/17/23 10:49 Vital Signs Temperature 97 F L 04/17/23 10:49 Pulse Rate 128 H 04/17/23 10:49 Respiratory Rate 20 04/17/23 10:49 Blood Pressure 126/92 H 04/17/23 10:49 Pulse Oximetry 97 04/17/23 10:49 Oxygen Delivery Method Room Air 04/17/23 10:49 Temperature 97 F L 04/17/23 10:49 Pulse Rate 118 H 04/17/23 12:33 Respiratory Rate 20 04/17/23 10:49 Blood Pressure 112/87 04/17/23 12:33 Pulse Oximetry 94 04/17/23 12:33 Oxygen Delivery Method Room Air 04/17/23 10:49 MDM - SOB/Dyspnea Lab Data Attestation: I reviewed the patient's lab results. Labs: Lab Results 04/17/23 04/17/23 Range/Units 11:05 11:29 WBC 28.61 H* (4.50-11.00) K/uL RBC 3.79 L (4.30-5.90) m/uL Hgb 13.4 L (13.5-17.5) gm/dL Hct 38.6 (37.0-53.0) % MCV 102 H (80-100) fL MCH 35 H (26-34) pg MCHC 35 (32-36) gm/dL RDW Coeff of Ellen 13.1 (11.5-15.5) % Plt Count 677 H (140-440) K/uL Neut % (Auto) 88.9 H (42.0-72.0) % Lymph % (Auto) 3.6 L (20-44) % [place] % (Auto) 4.4 (0.0-11.0) % Eos % (Auto) 0.5 (0.0-7.0) % Baso % (Auto) 0.2 (0.0-3.0) % Neut # (Auto) 25.40 H (1.7-7.0) K/uL Lymph # (Auto) 1.00 (0.90-2.90) K/uL [place] # (Auto) 1.30 H (0.00-0.90) K/UL Eos # (Auto) 0.10 (0.00-0.50) K/uL Baso # (Auto) 0.10 (0.00-0.30) K/uL Abs Immat Gran (auto) 0.70 H (0.00-0.30) K/uL Imm/Tot Granulo (auto) 2.4 % Diff Slide Review Acceptable Review (Acceptable) INR 1.22 H (0.91-1.10) APTT 36 H (23-33) Seconds VBG pH 7.451 H (7.32-7.43) VBG pCO2 35 L (40-50) mmHG VBG pO2 53.1 H (25-47) mmHG VBG HCO3 24 (21-28) mmol/L Sodium 115 L* (135-149) mmol/L Potassium 5.3 H (3.6-5.1) mmol/L Chloride 82 L (96-114) mmol/L Carbon Dioxide 22 (20-32) mmol/L Anion Gap 11 (7-15) mEq/L BUN 32 H (5-24) mg/dL Creatinine 1.4 (0.5-1.5) mg/dL Estimated Creat Clear 83.53 Estimated GFR 64 ml/min Glucose 135 H (60-115) mg/dL Lactate (0.5-1.9) mmol/L Calcium 8.8 (8.4-10.6) mg/dL Magnesium 2.2 (1.5-2.6) mg/dL Total Bilirubin 5.0 H (0.1-1.5) mg/dL AST 259 H (12-35) U/L ALT 96 H (4-50) U/L Alkaline Phosphatase 416 H (40-150) U/L Ammonia 51.0 H (13.1-30.0) umol/L Troponin I < 0.01 L (0.01-0.04) ng/mL C-Reactive Protein 5.3 H (0.5-1.0) mg/dL Total Protein 7.0 (6.0-8.3) g/dL Albumin 3.4 (3.3-5.0) g/dL Lipase 108 (23-300) U/L Ethyl Alcohol < 0.01 L (0.01-0.03) % POC Troponin I 0.01 (0.01-0.04) ng/ml Imaging Data US - abdomen: My impression: Ultrasound will be done with paracentesis. ECG Data Attestation: I personally reviewed and interpreted this ECG as follows: (Sinus tachycardia, 119 beats per minute. Significant artifact/baseline sway initially on this EKG. Makes it difficult to see 2 and 3 leads adequately, note no ST changes in AVF. Incomplete right bundle branch block, left posterior fascicular block.) ECG interpretation date: 04/17/23 ECG interpretation time: 11:22 Critical Care Time Critical Care Time Critical Care Time: No Discharge Plan Discharge Clinical Impression: Sinus tachycardia, Hyponatremia, Jaundice, Ascites due to alcoholic cirrhosis Patient Disposition: Admitted As Observation Prescriptions: No Action furosemide 40 mg Tablet 120 mg PO DAILY@0800 Qty: 90 0RF spironolactone 100 mg Tablet 300 mg PO DAILY@0800 Qty: 90 0RF lorazepam 0.5 mg Tablet 0.5 mg PO NIGHTLY PRNQty: 30 0RF omeprazole 20 mg Capsule,Delayed Release(Dr/Ec) 20 mg PO BID Qty: 60 0RF folic acid 1 mg Tablet 1 mg PO DAILY Qty: 30 0RF thiamine mononitrate (vit B1) [Vitamin B-1 (mononitrate)] 100 mg Tablet 250 mg PO BID Qty: 60 0RF multivitamin with folic acid [Thera] 400 mcg Tablet 1 tab PO DAILY Qty: 30 0RF Follow Up/Referrals: Provider,Not a Local [Primary Care Provider] -
[2023-04-17 11:35] LABS: Basophils Percent Auto 0.2 % (0.0-3.0); Eosinophils Percent Auto 0.5 % (0.0-7.0); Hematocrit 38.6 % (37.0-53.0); Hemoglobin* 13.4 gm/dL (13.5-17.5); Immature Granulocytes Pct Auto 2.4 %; Lymphocytes Percent Auto 3.6 % (20-44); Mean Corpuscular HGB Conc 35 gm/dL (32-36); Mean Corpuscular Hemoglobin 35 pg (26-34); Mean Corpuscular Volume 102 fL (80-100); Monocytes Percent Auto 4.4 % (0.0-11.0); Neutrophils Percent Auto 88.9 % (42.0-72.0); Platelet Count* 677 K/uL (140-440); RDW Coefficient of Variation % 13.1 % (11.5-15.5); Red Blood Count 3.79 m/uL (4.30-5.90)
[2023-04-17 11:42] LABS: Albumin* 3.4 g/dL (3.3-5.0); Chloride* 82 mmol/L (96-114)
[2023-04-17 11:43] LABS: Potassium* 5.3 mmol/L (3.6-5.1)
[2023-04-17 11:45] LABS: Alkaline Phosphatase* 416 U/L (40-150); Anion Gap 11 mEq/L (7-15); Aspartate Amino Transferase* 259 U/L (12-35); Carbon Dioxide* 22 mmol/L (20-32); Creatinine* 1.4 mg/dL (0.5-1.5); Est. Creatinine Clearance* 83.53; Estimated Glomerular Filt Rate 64 ml/min
[2023-04-17 11:46] LABS: Alanine Aminotransferase* 96 U/L (4-50); Blood Urea Nitrogen* 32 mg/dL (5-24); Calcium* 8.8 mg/dL (8.4-10.6); Glucose* 135 mg/dL (60-115); Lipase* 108 U/L (23-300); Magnesium* 2.2 mg/dL (1.5-2.6)
[2023-04-17 11:47] LABS: Troponin, Point-of-Care* 0.01 ng/ml (0.01-0.04)
[2023-04-17 11:47] LABS: INR 1.22 (0.91-1.10); Partial Thromboplastin Time* 36 Seconds (23-33); Prothrombin Time 16.1 Seconds
[2023-04-17 11:48] LABS: C Reactive Protein* 5.3 mg/dL (0.5-1.0); HCO3 VBG 24 mmol/L (21-28); PCO2 VBG 35 mmHG (40-50); PO2 VBG 53.1 mmHG (25-47); pH VBG 7.451 (7.32-7.43)
[2023-04-17 11:50] LABS: Ethanol* < 0.01 % (0.01-0.03)
[2023-04-17 11:51] LABS: Sodium* 115 mmol/L (135-149)
[2023-04-17 11:57] LABS: White Blood Count* 28.61 K/uL (4.50-11.00)
[2023-04-17 11:58] LABS: Troponin I* < 0.01 ng/mL (0.01-0.04)
[2023-04-17 12:24] LABS: Slide Review Reflex Yes
[2023-04-17 12:25] LABS: Slide Review Acceptable Review (Acceptable)
--- NOTE | 2023-04-17 13:12 | P.IMHP_ITS ---
Hospitalist- H&P: HPI History of Present Illness Date Seen: 04/17/23 Chief complaint: shortness of breath,edema Narrative: ADMISSION HISTORY AND PHYSICAL - HOSPITALIST Chief Complaint: Continued abdominal swelling, SOB ER visits: 04/17 04/11 04/06 04/05 03/26 which led to an admission from 03/26 till 03/29 HPI: Srinath is a patient with recently diagnosed alcoholic liver disease that includes jaundice-hyperbilirubinemia, ascites, transaminitis, mild coagulopathy, hyper ammoniemia that presents for ongoing abdominal distension shortness of breath. He also has significant peripheral edema and is unable to wear his regular shoes. His shortness of breath is getting worse. He presented to the emergency room for the 1st time on 03/26. He was admitted and diuretics were begun. Workup for spontaneous bacterial peritonitis was also pursued. He has this persistent sinus tachycardia and leukocytosis without fever and chills. His original diagnostic paracentesis for small amount of fluid was negative for bacterial infection. He subsequently discharged on 03/29 before ideal diuresis had been obtained (brinda PRIDE) He then returned to the emergency room on four further occasions. This 4th visit which is today he is willing to stay for admission. I just can not do it anymore as it relates to his abdominal distension and swelling has kept him from leaving [facility] today. However he did decline a tertiary care transfer. Apparently he has met with [facility], referral for paracentesis was recommended. He is set up to see hepatic subspecialist at the end of the month, JAZLYN. ER COURSE: Labs CODE STATUS: FULL CODE EMERGENCY CONTACT PLAN: I've updated the PFSH, medications and allergies in the Expanse tabs. INVESTIGATIONS: LABS/MICRO/ECG/IMAGING CBC reflects this ongoing significant leukocytosis. His white blood cell count is 28.61. Neutrophils are 88.9%. His platelets are reactive up to 677 K. His platelets are depressed at 102 K. INR is 1.22 PH is 7.45, no CO2 retention. Chemistries reveal a severe hyponatremia 115. A moderate hyperkalemia at 5.3. A severe hypochloremic metabolic alkalosis with a chloride of 82. Lactate can not be calculated. mildly alkalotic. His BUN is 32, creatinine 1.4 Fortunately his LFT seem to be slightly improved. His bilirubin is down to 5, when he was 1st admitted it was 9.3 His AST has gone from 11/22 down to 259 His ALT has stayed about the same 104 down to 96 His alk-phos has gone from 551 and 416, but has been as low as 315 Ammonia has vacillated between 37 and 66. Today is 51. CRP has vacillated between 5.3 and 7.7 Lipase is normal today Chest abdomen pelvis CT done on 03/26, admission: Hepatomegaly, diffuse hepatic steatosis, small volume four-quadrant ascites. These findings may represent early cirrhosis. No focal liver lesion is identified. Follow-up ultrasound done on April 11 Moderate to large volume ascites concentrated in the right upper quadrant and bilateral lower quadrants. Prominent spleen, although not included completely on the images submitted and therefore not measurable. Echo done at our last admission 03/28/2023 Normal LV. Mild wall thickness. EF 62%. Normal RV function. No significant valvular disease Previous blood cultures, ascites fluid and urine culture have all been negative. REVIEW OF SYSTEMS: 12-point ROS completed with patient and negative unless otherwise stated in HPI or below. PHYSICAL EXAM: CONSTITUTIONAL: Conversive, good historian. A/O. Knows setting and context. VITAL SIGNS: see record. HEENT: Normocephalic, atraumatic. PERRL, EOMI, conjunctivae pink, no scleral icterus. Ears and nose externally normal. Pharynx normal. NECK: No JVD. No carotid bruit, no thyromegaly, no adenopathy. CHEST: Clear to auscultation bilaterally HEART: S1 and S2 normal. No harsh murmurs. Edema 3+ ABDOMEN: tense - distended. generally tender to palpation. no peritoneal signs. MUSCULOSKELETAL: No gross joint deformity or swelling. NEURO: Cranial nerves intact. Grossly intact. No asymmetric findings. SKIN: No rashes, petechiae, concerning changes PSYCHIATRIC: Euthymic. ADMIT TO MEDSURG: CCU DVT: Lovenox GI: PO intake, PPI Time spent: Today I spent 75 minutes seeing the patient, discussing the patient with ER staff, reviewing Expanse and EPIC notes/diagnostics, discussing the care plan with our care time that includes social work, PT/OT, pharmacy, RT, residential and documenting my impressions and plan in the medical record. [facility] Medical History (Updated 04/17/23 @ 14:41 by Karime Recinos MD) Hyponatremia ?E87.1 - Hypo-osmolality and hyponatremia (ICD-10) Alcohol use disorder ?F10.90 - Alcohol use, unspecified, uncomplicated (ICD-10) Surgical History No history of previous surgery Family History (Updated 03/26/23 @ 14:46 by Rocky Dorsey MD) Other Cardiovascular disease Social History (Updated 04/17/23 @ 13:28 by Karime Recinos MD) Narrative: He lives with his and 2 children, ages 17 and 15, in [place]. 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 This spring he gave up on the physical labor of [employer] and lawn care. He does not smoke. He reports that formally he was a heavy consumer of alcohol, and this became a problem for him, so he quit 3 years ago. Some uncertainty as to when he resumed drinking and how much he resumed drinking in the past year. What is your current living situation?: I presently have a place to live Problems where you live: no known problems Problems where you live details: NA In the past 12 months, utilities in danger of being shut off: no In the past 12 mos, have been you worried that your food would run out before you had money to buy more?: never true In the past 12 mos, the food you bought just didn't last and you didn't have money to buy more?: never true Highest level of school completed/degree received: some college, no degree Smoking Status: Never smoker How often do you have a drink containing alcohol: never How often do you have six or more drinks on one occasion: Never AUDIT-C Alcohol total score: 0 Non-prescribed substance use: denies use How often does anyone, including family, friends and others, physically hurt you : never How often does anyone, including family, friends and others, insult or talk down to you: never How often does anyone, including family, friends and others, threaten you with harm: never How often does anyone, including family, friends and others, scream or curse at you: never service: No Meds Home Medications and Allergies Allergies Allergy/AdvReac Type Severity Reaction Status Date / Time erythromycin base Allergy Verified 04/17/23 09:32 Exam Const: Vital Signs, click to edit/add: Vital Signs - 24 hr 04/17/23 10:49 04/17/23 11:20 04/17/23 11:21 Temperature 97 F L Pulse Rate 121 H 121 H Pulse Rate [Pulse Oximeter] 128 H Respiratory Rate 20 Blood Pressure 114/91 H Blood Pressure [Ri ght Upper Arm] 126/92 H Pulse Oximetry 97 94 94 Oxygen Delivery Me thod Room Air 04/17/23 11:28 04/17/23 11:30 04/17/23 11:31 Temperature Pulse Rate 119 H 122 H Pulse Rate [Pulse Oximeter] Respiratory Rate Blood Pressure 115/95 H Blood Pressure [Ri ght Upper Arm] Pulse Oximetry 94 94 94 Oxygen Delivery Me thod 04/17/23 11:45 04/17/23 12:17 04/17/23 12:18 Temperature Pulse Rate 118 H 118 H 118 H Pulse Rate [Pulse Oximeter] Respiratory Rate Blood Pressure 115/89 Blood Pressure [Ri ght Upper Arm] Pulse Oximetry 94 94 93 Oxygen Delivery Me thod 04/17/23 12:30 04/17/23 12:33 Temperature Pulse Rate 118 H 118 H Pulse Rate [Pulse Oximeter] Respiratory Rate Blood Pressure 112/87 Blood Pressure [Ri ght Upper Arm] Pulse Oximetry 94 94 Oxygen Delivery Me thod Hospitalist - H&P: Result Labs Labs: Short CBC 04/17/23 Range/Units 11:29 WBC 28.61 H* (4.50-11.00) K/uL Hgb 13.4 L (13.5-17.5) gm/dL Hct 38.6 (37.0-53.0) % Plt Count 677 H (140-440) K/uL BMP 04/17/23 11:29 Sodium 115 L* Potassium 5.3 H Chloride 82 L Carbon Dioxide 22 BUN 32 H Creatinine 1.4 Glucose 135 H Calcium 8.8 Cardiac Enzymes 04/17/23 Range/Units 11:29 Troponin I < 0.01 L (0.01-0.04) ng/mL Liver Function 04/17/23 Range/Units 11:29 Total Bilirubin 5.0 H (0.1-1.5) mg/dL AST 259 H (12-35) U/L ALT 96 H (4-50) U/L Alkaline Phosphatase 416 H (40-150) U/L Albumin 3.4 (3.3-5.0) g/dL Assessment and Plan Assessment and plan (1) Ascites due to alcoholic cirrhosis: Problem comment: w/liver injury and peripheral edema +ascites, thrombocytopenia, hyperammonemia has established care with [facility] needs therapeutic paracentesis - sodium and fluid management Status: Acute (2) Alcoholic hepatitis: Problem comment: Moderately severe with new onset jaundice and elevated transaminases. Imaging on 03/29 shows no other obvious complication in the biliary tract or portal vein thrombosis MELD 04/17 = 18 Status: Acute (3) Hyperammonemia: Problem comment: lactulose to start today, BID Status: Acute (4) Sinus tachycardia: Problem comment: ECG is sinus tach. no known cardiac disease. echo normal from Mar 2023 admission. -monitor Status: Acute (5) Hyponatremia: Problem comment: will need fluid restriction - specifically to get >120 desmopressin x 1 dose of 2mcg IV (we don't have nasal, d/w pharmD), with 250cc of 3% @ 30 cc/hr recheck BMP q 4 hours Status: Acute (6) Alcohol use disorder: Problem comment: Longstanding issues pt declines to discuss this with his or daughters referral to counseling (Pt is seeing [facility]) has f/u planned with [facility] Status: Acute (7) Jaundice: Problem comment: Likely due to acute on chronic liver disease from alcohol. improving over the last several weeks Status: Acute
--- NOTE | 2023-04-17 13:28 | ED.NURSE ---
Report called to M/S RN.
[2023-04-17] MEDS: LACTULOSE 20 GM/30 ML PO (14:57)
[2023-04-17] MEDS: DESMOPRESSIN ACETATE 4 MCG/ML inj 2 MCG IVP (14:58)
[2023-04-17 16:35] LABS: Gamma Glutamyl Transpeptidase* 1387 U/L (8-55)
[2023-04-17 16:48] LABS: Chloride* 81 mmol/L (96-114); Potassium* 5.3 mmol/L (3.6-5.1)
[2023-04-17 16:51] LABS: Anion Gap 14 mEq/L (7-15); Blood Urea Nitrogen* 34 mg/dL (5-24); Carbon Dioxide* 22 mmol/L (20-32); Creatinine* 1.5 mg/dL (0.5-1.5); Est. Creatinine Clearance* 77.96; Estimated Glomerular Filt Rate 59 ml/min; Glucose* 120 mg/dL (60-115)
[2023-04-17 16:53] LABS: Procalcitonin* 1.48 ng/mL (<0.50)
[2023-04-17 17:00] LABS: Sodium* 117 mmol/L (135-149)
[2023-04-17] MEDS: ALBUMIN HUMAN 25% 25 GM/100 ML VIAL IVPB (17:33)
--- NOTE | 2023-04-17 18:22 | PM.GSCN ---
History of Present Illness Consult details Date Seen: 04/17/23 Consult date: 04/17/23 Narrative: The patient is a 42-year-old male with alcoholic liver disease presented to the emergency department with worsening abdominal distension, pain, shortness of breath. His history is that he has been in the emergency department multiple times since March 26. He was admitted that 1st time and treated for spontaneous bacterial peritonitis. He did have ascites at the time however there was not a very good pocket and so a diagnostic tap was done. Culture was negative. He had multiple ER visits since then. He did see a gastroenteritis at [facility]. He is set up I believe to see a rn primary care later this month. They did recommend paracentesis. I was asked to see the patient for paracentesis as he has worsening abdominal distension. The patient states that his lower abdomen hurts. He also feels more short of breath. He is not eating much. No nausea. He is having bowel movements. [facility] Medical History (Updated 04/17/23 @ 14:41 by Karime Recinos MD) Hyponatremia ?E87.1 - Hypo-osmolality and hyponatremia (ICD-10) Alcohol use disorder ?F10.90 - Alcohol use, unspecified, uncomplicated (ICD-10) Surgical History No history of previous surgery Family History (Updated 03/26/23 @ 14:46 by Rocky Dorsey MD) Other Cardiovascular disease Social History (Updated 04/17/23 @ 13:28 by Karime Recinos MD) Narrative: He lives with his and 2 children, ages 17 and 15, in [place]. 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 This spring he gave up on the physical labor of [employer] and lawn care. He does not smoke. He reports that formally he was a heavy consumer of alcohol, and this became a problem for him, so he quit 3 years ago. Some uncertainty as to when he resumed drinking and how much he resumed drinking in the past year. What is your current living situation?: I presently have a place to live Problems where you live: no known problems Problems where you live details: N/A In the past 12 months, utilities in danger of being shut off: no In the past 12 mos, have been you worried that your food would run out before you had money to buy more?: never true In the past 12 mos, the food you bought just didn't last and you didn't have money to buy more?: never true Highest level of school completed/degree received: some college, no degree Smoking Status: Never smoker Do you use any of these nicotine containing products: None Second hand tobacco smoke exposure: No How often do you have a drink containing alcohol: never How often do you have six or more drinks on one occasion: Never AUDIT-C Alcohol total score: 0 Non-prescribed substance use: denies use How often does anyone, including family, friends and others, physically hurt you: never How often does anyone, including family, friends and others, insult or talk down to you: never How often does anyone, including family, friends and others, threaten you with harm: never How often does anyone, including family, friends and others, scream or curse at you: never service: No Meds Home Medications and Allergies Allergies Allergy/AdvReac Type Severity Reaction Status Date / Time erythromycin base Allergy Verified 04/17/23 09:32 Exam Narrative: Exam Narrative: General: No distress the patient appears on comfort Respiratory: Breathing appears nonlabored on room air CV: Tachycardic Abdomen: markedly distended and tense. No scars. Pitting edema noted on abdominal wall Extremities: 3+ +pitting edema bilateral lower extremities Const: Vital Signs, click to edit/add: Vital Signs - 24 hr 04/17/23 10:49 04/17/23 11:20 04/17/23 11:21 Temperature 97 F L Pulse Rate 121 H 121 H Pulse Rate [Left R adial] Pulse Rate [Pulse Oximeter] 128 H Respiratory Rate 20 Blood Pressure 114/91 H Blood Pressure [Le ft Arm] Blood Pressure [Ri ght Upper Arm] 126/92 H Pulse Oximetry 97 94 94 Oxygen Delivery Me thod Room Air 04/17/23 11:28 04/17/23 11:30 04/17/23 11:31 Temperature Pulse Rate 119 H 122 H Pulse Rate [Left R adial] Pulse Rate [Pulse Oximeter] Respiratory Rate Blood Pressure 115/95 H Blood Pressure [Le ft Arm] Blood Pressure [Ri ght Upper Arm] Pulse Oximetry 94 94 94 Oxygen Delivery Me thod 04/17/23 11:45 04/17/23 12:17 04/17/23 12:18 Temperature Pulse Rate 118 H 118 H 118 H Pulse Rate [Left R adial] Pulse Rate [Pulse Oximeter] Respiratory Rate Blood Pressure 115/89 Blood Pressure [Le ft Arm] Blood Pressure [Ri ght Upper Arm] Pulse Oximetry 94 94 [facility] 12:30 04/17/23 12:33 04/17/23 12:34 Temperature Pulse Rate 118 H 118 H 117 H Pulse Rate [Left R adial] Pulse Rate [Pulse Oximeter] Respiratory Rate Blood Pressure 112/87 Blood Pressure [Le ft Arm] Blood Pressure [Ri ght Upper Arm] Pulse Oximetry 94 94 94 [facility] 04/17/23 12:45 04/17/23 13:00 04/17/23 13:04 Temperature Pulse Rate 118 H 121 H 127 H Pulse Rate [Left R adial] Pulse Rate [Pulse Oximeter] Respiratory Rate Blood Pressure 113/85 Blood Pressure [Le ft Arm] Blood Pressure [Ri ght Upper Arm] Pulse Oximetry 94 94 92 [facility] 04/17/23 13:15 04/17/23 13:36 04/17/23 15:00 Temperature 98.1 F Pulse Rate 126 H 118 H Pulse Rate [Left R adial] 115 H Pulse Rate [Pulse Oximeter] Respiratory Rate 20 Blood Pressure Blood Pressure [Le ft Arm] 117/98 H Blood Pressure [Ri ght Upper Arm] Pulse Oximetry 95 96 [facility] 04/17/23 15:00 04/17/23 15:00 04/17/23 15:00 Temperature 98.1 F Pulse Rate Pulse Rate [Left R adial] Pulse Rate [Pulse Oximeter] 111 H 112 H Respiratory Rate 18 18 18 Blood Pressure Blood Pressure [Le ft Arm] 136/95 H Blood Pressure [Ri ght Upper Arm] Pulse Oximetry 95 95 Oxygen Delivery Me od Room Air Room Air Results Labs Labs: Abnormal lab results 04/17/23 04/17/23 Range/Units 11:29 16:26 WBC 28.61 H* (4.50-11.00) K/uL RBC 3.79 L (4.30-5.90) m/uL Hgb 13.4 L (13.5-17.5) gm/dL MCV 102 H (80-100) fL MCH 35 H (26-34) pg Plt Count 677 H (140-440) K/uL Neut % (Auto) 88.9 H (42.0-72.0) % Lymph % (Auto) 3.6 L (20-44) % Neut # (Auto) 25.40 H (1.7-7.0) K/uL [place] # (Auto) 1.30 H (0.00-0.90) K/UL Abs Immat Gran (auto) 0.70 H (0.00-0.30) K/uL INR 1.22 H (0.91-1.10) APTT 36 H (23-33) Seconds VBG pH 7.451 H (7.32-7.43) VBG pCO2 35 L (40-50) mmHG VBG pO2 53.1 H (25-47) mmHG Sodium 115 L* 117 L* (135-149) mmol/L Potassium 5.3 H 5.3 H (3.6-5.1) mmol/L Chloride 82 L 81 L (96-114) mmol/L BUN 32 H 34 H (5-24) mg/dL Glucose 135 H 120 H (60-115) mg/dL Total Bilirubin 5.0 H (0.1-1.5) mg/dL GGT 1387 H (8-55) U/L AST 259 H (12-35) U/L ALT 96 H (4-50) U/L Alkaline Phosphatase 416 H (40-150) U/L Ammonia 51.0 H (13.1-30.0) umol/L Troponin I < 0.01 L (0.01-0.04) ng/mL C-Reactive Protein 5.3 H (0.5-1.0) mg/dL Procalcitonin 1.48 H (<0.50) ng/mL Ethyl Alcohol < 0.01 L (0.01-0.03) % Diabetes panel 04/17/23 04/17/23 Range/Units 11:29 16:26 Sodium 115 L* 117 L* (135-149) mmol/L Potassium 5.3 H 5.3 H (3.6-5.1) mmol/L Chloride 82 L 81 L (96-114) mmol/L Carbon Dioxide 22 22 (20-32) mmol/L BUN 32 H 34 H (5-24) mg/dL Creatinine 1.4 1.5 (0.5-1.5) mg/dL Glucose 135 H 120 H (60-115) mg/dL Calcium 8.8 9.0 (8.4-10.6) mg/dL AST 259 H (12-35) U/L ALT 96 H (4-50) U/L Alkaline Phosphatase 416 H (40-150) U/L Total Protein 7.0 (6.0-8.3) g/dL Albumin 3.4 (3.3-5.0) g/dL Calcium panel 04/17/23 04/17/23 Range/Units 11:29 16:26 Calcium 8.8 9.0 (8.4-10.6) mg/dL Albumin 3.4 (3.3-5.0) g/dL Pituitary panel 04/17/23 04/17/23 Range/Units 11:29 16:26 Sodium 115 L* 117 L* (135-149) mmol/L Potassium 5.3 H 5.3 H (3.6-5.1) mmol/L Chloride 82 L 81 L (96-114) mmol/L Carbon Dioxide 22 22 (20-32) mmol/L BUN 32 H 34 H (5-24) mg/dL Creatinine 1.4 1.5 (0.5-1.5) mg/dL Glucose 135 H 120 H (60-115) mg/dL Calcium 8.8 9.0 (8.4-10.6) mg/dL Adrenal panel 04/17/23 04/17/23 Range/Units 11:29 16:26 Sodium 115 L* 117 L* (135-149) mmol/L Potassium 5.3 H 5.3 H (3.6-5.1) mmol/L Chloride 82 L 81 L (96-114) mmol/L Carbon Dioxide 22 22 (20-32) mmol/L BUN 32 H 34 H (5-24) mg/dL Creatinine 1.4 1.5 (0.5-1.5) mg/dL Glucose 135 H 120 H (60-115) mg/dL Calcium 8.8 9.0 (8.4-10.6) mg/dL Total Bilirubin 5.0 H (0.1-1.5) mg/dL AST 259 H (12-35) U/L ALT 96 H (4-50) U/L Alkaline Phosphatase 416 H (40-150) U/L Total Protein 7.0 (6.0-8.3) g/dL Albumin 3.4 (3.3-5.0) g/dL All other labs normal. Imaging Abdominal ultrasound report/results: report reviewed and image reviewed Additional studies: Ultrasound done on April 11 show moderate to large volume ascites concentrated in the right upper quadrant. Assessment and Plan Assessment and plan (1) Hyperammonemia: Problem comment: lactulose to start today, BID Status: Acute (2) Ascites due to alcoholic cirrhosis: Problem comment: w/liver injury and peripheral edema +ascites, thrombocytopenia, hyperammonemia has established care with [facility] needs therapeutic paracentesis - sodium and fluid management Status: Acute (3) Sinus tachycardia: Problem comment: ECG is sinus tach. no known cardiac disease. echo normal from Mar 2023 admission. -monitor Status: Acute (4) Hyponatremia: Problem comment: will need fluid restriction - specifically to get >120 desmopressin x 1 dose of 2mcg IV (we don't have nasal, d/w pharmD), with 250cc of 3% @ 30 cc/hr recheck BMP q 4 hours Status: Acute (5) Alcoholic hepatitis: Problem comment: Moderately severe with new onset jaundice and elevated transaminases. Imaging on 03/29 shows no other obvious complication in the biliary tract or portal vein thrombosis MELD 04/17 = 18 Status: Acute (6) Alcohol use disorder: Problem comment: Longstanding issues pt declines to discuss this with his or daughters referral to counseling (Pt is seeing [facility]) has f/u planned with [facility] Status: Acute (7) Jaundice: Problem comment: Likely due to acute on chronic liver disease from alcohol. improving over the last several weeks Status: Acute Plan The patient is a 42-year-old male with abdominal distention from ascites from alcoholic cirrhosis. He underwent paracentesis today of 7.7 L. This was stopped just to ensure no significant fluid shifts. He was given 25% albumin. I have instructed nursing staff to notify hospitalist with any ongoing hypotension and he will likely need additional fluids, however his blood pressure was very stable throughout the procedure. he should continue to follow-up with GI. He may need a tips procedure. He will likely need outpatient paracentesis which can be ordered on discharge if he continues on his current clinical course.
--- NOTE | 2023-04-17 18:29 | PC.NURSE ---
Patient is alert and oriented, pleasant and cooperative. Patient reports pain in abdomen with movement, is independent in room. Paracentesis at bedside via Dr. Hernandez. Patient verbalizes relief post-procedure. Tolerating diet well.
--- NOTE | 2023-04-17 18:34 | W.PM.PARA ---
Paracentesis Date Date: 04/17/23 Procedure Note Procedure: Paracentesis with Ultrasound Guidance Type of paracentesis: Therapeutic Surgeon: Charissa Hernandez Indications: The patient is a 42-year-old male with cirrhosis secondary to alcohol with severe ascites. I was asked to perform a therapeutic paracentesis. Cultures will also be sent. Labs and Cytology Sent:: Yes (culture) Albumin infused: Yes (One bottle of 25% albumin) Procedure Note:: Prior to the procedure, the risks and benefits of the procedure were discussed and an informed consent was obtained. Patient identification was confirmed and TIME OUT was performed. [An ultrasound was brought onto the field and an easily accessible pocket of ascites was identified that was away from intraabdominal organs. The patient's abdomen in the right lower quadrant was prepped and draped in the usual sterile fashion. 1% Lidocaine was used to anesthetize the skin, soft tissues and peritoneum over the proposed needle insertion site. A skin incision was made with a scalpel just large enough to fit the needle. The needle with the paracentesis catheter was advanced into the abdomen and a cystic fluid was aspirated into the syringe. The needle was then withdrawn and the catheter was left in place. The catheter was then connected to the drainage tubing. 7.7 Liters of straw colored fluid was drained. This was sent to the lab for colon. Post procedure ultrasound revealed markedly reduced residual fluid. The catheter was then removed and the skin was closed with Dermabond. Patient tolerated procedure well and there were no immediate complications. Patient's vital signs were stable throughout the procedure. Because of the volume of fluid, 50 mL of 25% albumin was infused
[2023-04-17 21:43] LABS: Sodium* 118 mmol/L (135-149)
[2023-04-17] MEDS: THIAMINE 100 MG TABLET 250 MG PO (22:11)
[2023-04-17] MEDS: OMEPRAZOLE 20 MG CAPSULE DR PO (22:12)
[2023-04-17] MEDS: ENOXAPARIN 40 MG/0.4 ML INJ SUBCUT (22:12)
[2023-04-17] MEDS: ZOLPIDEM 5 MG TABLET PO (22:12)
--- NOTE | 2023-04-17 22:41 | PC.NURSE ---
PT PLEASANT AND COOPERATIVE. VSS HE IS UP INDEPENDETLY IN THE ROOM. STATES HE HAD ON SMALL LOOSE STOOL THIS EVENING. vOIDING WITHOUT DIFFICULTLY.
[2023-04-18] VITALS (13 sets, daily range): BP systolic 95–127; BP diastolic 67–98; PULSE 73–126; RESP 14–20; TEMP 36.6–36.7; O2SAT 90–96; BMI 29.3
--- NOTE | 2023-04-18 06:08 | PC.NURSE ---
END OF SHIFT NOTE: PT PLEASANT AND COOPERATIVE. A&Ox3. PT DENIES CP, SOB, N/V. AMBULATES INDEPENDENTLY WITHIN ROOM. VSS ON RA; AFEBRILE. LSCTA. BLE WITH +3 PITTING EDEMA. ABDOMEN IS LARGE, ROUND AND DISTENDED. ABDOMEN IS TENDER WHEN PALPATED. PER NURSING REPORT, PT ABDOMEN HAS DECREASED IN SIZE POST PARACENTESIS. PER PT REPORT VOIDED WITH LOOSE BM x4. TELE READS SINUS TACHYCARDIA. PT SLEPT WELL OVERNIGHT. PT WT THIS MORNING 241LBS 6.4OZ. CALL LIGHT WITHIN PT?S REACH.?
[2023-04-18 07:01] LABS: Albumin* 2.9 g/dL (3.3-5.0)
[2023-04-18 07:02] LABS: Chloride* 86 mmol/L (96-114)
[2023-04-18 07:03] LABS: Hematocrit 36.6 % (37.0-53.0); Hemoglobin* 12.8 gm/dL (13.5-17.5); Mean Corpuscular HGB Conc 35 gm/dL (32-36); Mean Corpuscular Hemoglobin 36 pg (26-34); Mean Corpuscular Volume 102 fL (80-100); Platelet Count* 574 K/uL (140-440); Potassium* 4.9 mmol/L (3.6-5.1); Red Blood Count 3.59 m/uL (4.30-5.90); White Blood Count* 22.36 K/uL (4.50-11.00)
[2023-04-18 07:04] LABS: Creatinine* 1.2 mg/dL (0.5-1.5); Est. Creatinine Clearance* 97.45; Estimated Glomerular Filt Rate 77 ml/min
[2023-04-18 07:05] LABS: Alanine Aminotransferase* 82 U/L (4-50); Alkaline Phosphatase* 360 U/L (40-150); Anion Gap 7 mEq/L (7-15); Aspartate Amino Transferase* 222 U/L (12-35); Bilirubin Direct* 3.1 mg/dL (0.0-0.5); Bilirubin Total* 4.2 mg/dL (0.1-1.5); Blood Urea Nitrogen* 30 mg/dL (5-24); Carbon Dioxide* 25 mmol/L (20-32); Gamma Glutamyl Transpeptidase* 1308 U/L (8-55); Glucose* 88 mg/dL (60-115); Phosphorus* 4.8 mg/dL (2.5-4.5)
[2023-04-18 07:06] LABS: Calcium* 8.6 mg/dL (8.4-10.6); Magnesium* 2.4 mg/dL (1.5-2.6)
[2023-04-18 07:09] LABS: Slide Review Reflex No
[2023-04-18 07:16] LABS: Sodium* 118 mmol/L (135-149)
[2023-04-18 07:22] LABS: NT Pro B Type NatriureticPept* 166 pg/mL; Procalcitonin* 1.11 ng/mL (<0.50)
[2023-04-18 08:28] LABS: Lab Add On Test New Spec Needed
--- NOTE | 2023-04-18 08:57 | PM.IMPN1 ---
Progress Note: A&P Assessment and plan (1) Ascites due to alcoholic cirrhosis: Problem details: -w/liver injury and peripheral edema +ascites, mild coagulopathy, moderate hyperammonemia -therapeutic paracentesis 04/17/2023; 7.7 L followed by albumin infusion. Culture pending -has established care with [facility] Status: Acute (2) Hyponatremia: Problem details: will need fluid restriction - specifically to get >120 desmopressin 2 mcg IV b.i.d. (we don't have nasal, d/w pharmD), with 250cc of 3% @ 30 cc/hr Follow BMP Status: Acute (3) Hyperammonemia: Problem details: -lactulose b.i.d.. Ammonia level is decreasing. -no obvious encephalopathy at this point Status: Acute (4) Alcoholic hepatitis: Problem details: Moderately severe with new onset jaundice/hyperbilirubinemia and elevated transaminases. Imaging on 03/29 shows no other obvious complication in the biliary tract or portal vein thrombosis MELD 04/17 = 18 Status: Acute (5) Sinus tachycardia: Problem details: ECG is sinus tach. no known cardiac disease. echo normal from Mar 2023 admission. -trial propranolol ER 80 mg daily, starting 04/18/2023 Status: Acute (6) Alcohol use disorder: Problem details: Longstanding issues pt declines to discuss this with his or daughters referral to counseling (Pt is seeing [facility]) has f/u planned with [facility] Status: Acute (7) Jaundice: Problem details: Likely due to acute on chronic liver disease from alcohol. improving over the last several weeks Status: Acute Subjective Date Seen: 04/18/23 Interval history: Daily Progress Note - Hospital Medicine Day #: 2 CC: Abdominal distension/alcoholic liver disease with ascites, severe hyponatremia OVERNIGHT UPDATES FROM STAFF & MED, LAB, IMAGING UPDATES Overnight Srinath did well. He slept well with the Ambien. He tolerated his paracentesis of up to 7.7 L. he feels a lot better from a distension standpoint. He still has a lot of swelling peripherally. RN note: END OF SHIFT NOTE: PT PLEASANT AND COOPERATIVE. A&Ox3. PT DENIES CP, SOB, N/V. AMBULATES INDEPENDENTLY WITHIN ROOM. VSS ON RA; AFEBRILE. LSCTA. BLE WITH +3 PITTING EDEMA. ABDOMEN IS LARGE, ROUND AND DISTENDED. ABDOMEN IS TENDER WHEN PALPATED. PER NURSING REPORT, PT ABDOMEN HAS DECREASED IN SIZE POST PARACENTESIS. PER PT REPORT VOIDED WITH LOOSE BM x4. TELE READS SINUS TACHYCARDIA. PT SLEPT WELL OVERNIGHT. PT WT THIS MORNING [id number] 6.4OZ. CALL LIGHT WITHIN PT?S REACH. 7.7 L of straw-colored fluid was obtained on 04/17 via standard paracentesis technique. We appreciate the assistance of our general surgeon colleague Dr. Charissa Hernandez -fluid culture is pending. There was no gram stain or other labs obtained from this fluid. Remains afebrile Blood pressure 120s over 90s Pulse remains tachycardic 106-120, sinus, regular Respiratory rate is 14 to 16 and unlabored Room air sats are in the low 90s 90-94 Weight has decreased 118.4 down to 109.5 = delta 8.9 kg, 19.5 CBC reflects a down trend in his chronic leukocytosis Hemoglobin is stable in the 12's Platelets are less reactive 677 down to 574 PH is stable 7.45 Sodium at admission was 115 and is up to 118 this morning Chloride is improving up to 86 Potassium is return to normal Creatinine has improved from 1.4-1.2 Phosphorus is a bit elevated, 4.8 All of his liver enzymes continue to improve: Total bili is the best it has been 9.3 back in March down to 4.2 Direct bili 3.1 GGT is improving 1841 down to 1308 over the last month AST continues to improve as does ALT and alk-phos CRP and procalcitonin are down trending Objective: Jaundiced. Awake and alert. Vitals: Tachycardic but otherwise stable see above Lungs: Clear. Abdomen: Distended but much improved from yesterday. Cardiac: S1S2. Disposition/Potential discharge - Likely to return to previous living situation. Today I spent 50minutes seeing the patient, reviewing Expanse and EPIC notes/diagnostics, discussing the care plan with our care time that includes social work, PT/OT, pharmacy, RT, senior care and documenting my impressions and plan in the medical record. Alcohol 22779 >30 mins. We went over all the stigmata of alcoholism I see in this patient. I discussed the effects of chronic alcohol on the brain, liver, and heart. I recommended complete abstinence from alcohol and instructed on programs available at discharge from acute care. Exam Const: Vital Signs, click to edit/add: Vital Signs - 24 hr 04/17/23 10:49 04/17/23 11:20 04/17/23 11:21 Temperature 97 F L Pulse Rate 121 H 121 H Pulse Rate [Left R adial] Pulse Rate [Pulse Oximeter] 128 H Respiratory Rate 20 Blood Pressure 114/91 H Blood Pressure [Le ft Arm] Blood Pressure [Ri ght Upper Arm] 126/92 H Pulse Oximetry 97 94 94 Oxygen Delivery Me thod Room Air 04/17/23 11:28 04/17/23 11:30 04/17/23 11:31 Temperature Pulse Rate 119 H 122 H Pulse Rate [Left R adial] Pulse Rate [Pulse Oximeter] Respiratory Rate Blood Pressure 115/95 H Blood Pressure [Le ft Arm] Blood Pressure [Ri ght Upper Arm] Pulse Oximetry 94 94 94 Oxygen Delivery Me thod 04/17/23 11:45 04/17/23 12:17 04/17/23 12:18 Temperature Pulse Rate 118 H 118 H 118 H Pulse Rate [Left R adial] Pulse Rate [Pulse Oximeter] Respiratory Rate Blood Pressure 115/89 Blood Pressure [Le ft Arm] Blood Pressure [Ri ght Upper Arm] Pulse Oximetry 94 94 93 Oxygen Delivery Me thod 04/17/23 12:30 04/17/23 12:33 04/17/23 12:34 Temperature Pulse Rate 118 H 118 H 117 H Pulse Rate [Left R adial] Pulse Rate [Pulse Oximeter] Respiratory Rate Blood Pressure 112/87 Blood Pressure [Le ft Arm] Blood Pressure [Ri ght Upper Arm] Pulse Oximetry 94 94 94 Oxygen Delivery Me thod 04/17/23 12:45 04/17/23 13:00 04/17/23 13:04 Temperature Pulse Rate 118 H 121 H 127 H Pulse Rate [Left R adial] Pulse Rate [Pulse Oximeter] Respiratory Rate Blood Pressure 113/85 Blood Pressure [Le ft Arm] Blood Pressure [Ri ght Upper Arm] Pulse Oximetry 94 94 92 Oxygen Delivery Me thod 04/17/23 13:15 04/17/23 13:36 04/17/23 15:00 Temperature 98.1 F Pulse Rate 126 H 118 H Pulse Rate [Left R adial] 115 H Pulse Rate [Pulse Oximeter] Respiratory Rate 20 Blood Pressure Blood Pressure [Le ft Arm] 117/98 H Blood Pressure [Ri ght Upper Arm] Pulse Oximetry 95 96 Oxygen Delivery Me thod Room Air 04/17/23 15:00 04/17/23 15:00 04/17/23 15:00 Temperature 98.1 F Pulse Rate Pulse Rate [Left R adial] Pulse Rate [Pulse Oximeter] 111 H 112 H Respiratory Rate 18 18 18 Blood Pressure Blood Pressure [Le ft Arm] 136/95 H Blood Pressure [Ri ght Upper Arm] Pulse Oximetry 95 95 Oxygen Delivery Me thod Room Air Room Air 04/17/23 20:16 04/17/23 20:27 04/17/23 23:19 Temperature 98.2 F Pulse Rate 104 H 106 H Pulse Rate [Left R adial] Pulse Rate [Pulse Oximeter] 110 H Respiratory Rate 16 Blood Pressure Blood Pressure [Le ft Arm] 130/70 Blood Pressure [Ri ght Upper Arm] Pulse Oximetry [address]od Room Air 04/18/23 01:00 04/18/23 01:00 04/18/23 01:00 Temperature 97.9 F Pulse Rate Pulse Rate [Left R adial] Pulse Rate [Pulse Oximeter] 97 97 Respiratory Rate 18 18 18 Blood Pressure Blood Pressure [Le ft Arm] 127/93 H Blood Pressure [Ri ght Upper Arm] Pulse Oximetry [address]od Room Air Room Air 04/18/23 03:00 04/18/23 04:00 04/18/23 07:00 Temperature Pulse Rate 111 H Pulse Rate [Left R adial] Pulse Rate [Pulse Oximeter] 107 H 120 H Respiratory Rate 14 Blood Pressure Blood Pressure [Le ft Arm] 119/90 H Blood Pressure [Ri ght Upper Arm] Pulse Oximetry [address] thod Room Air 04/18/23 07:00 04/18/23 08:00 Temperature Pulse Rate 113 H Pulse Rate [Left R adial] Pulse Rate [Pulse Oximeter] 120 H Respiratory Rate 16 Blood Pressure Blood Pressure [Le ft Arm] 126/90 H Blood Pressure [Ri ght Upper Arm] Pulse Oximetry [address] thod Room Air Labs Labs: Laboratory Results - last 24 hr 04/17/23 04/17/23 04/17/23 11:05 11:29 14:24 WBC 28.61 H* RBC 3.79 L Hgb 13.4 L Hct 38.6 MCV 102 H MCH 35 H MCHC 35 RDW Coeff of Ellen 13.1 Plt Count 677 H Neut % (Auto) 88.9 H Lymph % (Auto) 3.6 L Campbell % (Auto) 4.4 Eos % (Auto) 0.5 Baso % (Auto) 0.2 Neut # (Auto) 25.40 H Lymph # (Auto) 1.00 Campbell # (Auto) 1.30 H Eos # (Auto) 0.10 Baso # (Auto) 0.10 Abs Immat Gran (auto) 0.70 H Imm/Tot Granulo (auto) 2.4 Diff Slide Review Acceptable Review INR 1.22 H APTT 36 H VBG pH 7.451 H VBG pCO2 35 L VBG pO2 53.1 H VBG HCO3 24 Sodium 115 L* Potassium 5.3 H Chloride 82 L Carbon Dioxide 22 Anion Gap 11 BUN 32 H Creatinine 1.4 Estimated Creat Clear 83.53 Estimated GFR 64 Glucose 135 H Lactate Calcium 8.8 Phosphorus Magnesium 2.2 Total Bilirubin 5.0 H Direct Bilirubin GGT 1387 H AST 259 H ALT 96 H Alkaline Phosphatase 416 H Ammonia 51.0 H Troponin I < 0.01 L C-Reactive Protein 5.3 H NT-Pro-B Natriuret Pep Total Protein 7.0 Albumin 3.4 Lipase 108 Procalcitonin 1.48 H Ethyl Alcohol < 0.01 L Lab Acknowledgement Test Added POC Troponin I 0.01 04/17/23 04/17/23 04/18/23 16:26 21:19 05:58 WBC 22.36 H RBC 3.59 L Hgb 12.8 L Hct 36.6 L MCV 102 H MCH 36 H MCHC 35 RDW Coeff of Ellen Plt Count 574 H Neut % (Auto) Lymph % (Auto) Campbell % (Auto) Eos % (Auto) Baso % (Auto) Neut # (Auto) Lymph # (Auto) Campbell # (Auto) Eos # (Auto) Baso # (Auto) Abs Immat Gran (auto) Imm/Tot Granulo (auto) Diff Slide Review INR APTT VBG pH VBG pCO2 VBG pO2 VBG HCO3 Sodium 117 L* 118 L* 118 L* Potassium 5.3 H 4.9 Chloride 81 L 86 L Carbon Dioxide 22 25 Anion Gap 14 7 BUN 34 H 30 H Creatinine 1.5 1.2 Estimated Creat Clear 77.96 97.45 Estimated GFR 59 77 Glucose 120 H 88 Lactate Calcium 9.0 8.6 Phosphorus 4.8 H Magnesium 2.4 Total Bilirubin 4.2 H Direct Bilirubin 3.1 H GGT 1308 H AST 222 H ALT 82 H Alkaline Phosphatase 360 H Ammonia Troponin I C-Reactive Protein 5.0 H NT-Pro-B Natriuret Pep 166 Total Protein 6.0 Albumin 2.9 L Lipase Procalcitonin 1.11 H Ethyl Alcohol Lab Acknowledgement POC Troponin I 04/18/23 08:27 WBC RBC Hgb Hct MCV MCH MCHC RDW Coeff of Ellen Plt Count Neut % (Auto) Lymph % (Auto) Campbell % (Auto) Eos % (Auto) Baso % (Auto) Neut # (Auto) Lymph # (Auto) Campbell # (Auto) Eos # (Auto) Baso # (Auto) Abs Immat Gran (auto) Imm/Tot Granulo (auto) Diff Slide Review INR APTT VBG pH VBG pCO2 VBG pO2 VBG HCO3 Sodium Potassium Chloride Carbon Dioxide Anion Gap BUN Creatinine Estimated Creat Clear Estimated GFR Glucose Lactate Calcium Phosphorus Magnesium Total Bilirubin Direct Bilirubin GGT AST ALT Alkaline Phosphatase Ammonia Troponin I C-Reactive Protein NT-Pro-B Natriuret Pep Total Protein Albumin Lipase Procalcitonin Ethyl Alcohol Lab Acknowledgement New Spec Needed POC Troponin I
[2023-04-18] MEDS: FUROSEMIDE 40 MG TABLET 120 MG PO (09:22)
[2023-04-18] MEDS: LACTULOSE 20 GM/30 ML PO ×2 (09:23→14:58)
[2023-04-18] MEDS: FOLIC ACID 1 MG TABLET PO (09:23)
[2023-04-18] MEDS: SPIRONOLACTONE 100 MG TABLET 300 MG PO (09:23)
[2023-04-18] MEDS: THIAMINE 100 MG TABLET 250 MG PO ×2 (09:24→22:31)
[2023-04-18] MEDS: MULTIVITAMIN/MINERALS 1 TABLET 1 TAB PO (09:24)
[2023-04-18] MEDS: OMEPRAZOLE 20 MG CAPSULE DR PO ×2 (09:24→22:31)
[2023-04-18] MEDS: SODIUM CHLORIDE 0.9 % (FLUSH) 10 ML SYRINGE 5 ML IVF ×2 (09:26→22:32)
[2023-04-18] MEDS: PROPRANOLOL ER 80 MG CAP PO ×2 (09:34→14:58)
[2023-04-18] MEDS: DESMOPRESSIN ACETATE 4 MCG/ML inj 2 MCG IVP ×2 (09:34→22:29)
[2023-04-18 10:09] LABS: INR 1.28 (0.91-1.10); Prothrombin Time 16.7 Seconds
[2023-04-18 12:58] LABS: HCO3 VBG 23 mmol/L (21-28); Lactate* 2.3 mmol/L (0.5-1.9); PCO2 VBG 32 mmHG (40-50); PO2 VBG 71.1 mmHG (25-47); pH VBG 7.463 (7.32-7.43)
[2023-04-18 13:15] LABS: Chloride* 88 mmol/L (96-114); Potassium* 5.3 mmol/L (3.6-5.1)
[2023-04-18 13:17] LABS: Creatinine* 1.2 mg/dL (0.5-1.5); Est. Creatinine Clearance* 97.45; Estimated Glomerular Filt Rate 77 ml/min
[2023-04-18 13:18] LABS: Anion Gap 9 mEq/L (7-15); Blood Urea Nitrogen* 29 mg/dL (5-24); Calcium* 8.5 mg/dL (8.4-10.6); Carbon Dioxide* 22 mmol/L (20-32); Glucose* 126 mg/dL (60-115)
[2023-04-18 13:23] LABS: Sodium* 119 mmol/L (135-149)
--- NOTE | 2023-04-18 16:57 | PC.NURSE ---
Addendum entered by Sharifa Gomes RN 04/18/23 16:59: flanks marked bilaterally , measured at umbilicus Original Note: abdominal girth 49.5 inches measured at 1000
--- NOTE | 2023-04-18 18:47 | PC.NURSE ---
Patient pleasant and cooperative, alert and oriented to person, place, time, and situation. Patient ambulates independently in room with no assist. Patient denies pain. Patient reports increased appetite from admission and tolerates diet well. Patient reports frequent stools related to lactulose medication.
[2023-04-18 19:22] LABS: Lactate* 1.5 mmol/L (0.5-1.9)
[2023-04-18 19:48] LABS: Albumin* 3.2 g/dL (3.3-5.0); Chloride* 88 mmol/L (96-114); Potassium* 5.5 mmol/L (3.6-5.1)
[2023-04-18 19:50] LABS: Anion Gap 7 mEq/L (7-15); Carbon Dioxide* 26 mmol/L (20-32); Creatinine* 1.3 mg/dL (0.5-1.5); Est. Creatinine Clearance* 89.95; Estimated Glomerular Filt Rate 70 ml/min
[2023-04-18 19:51] LABS: Blood Urea Nitrogen* 32 mg/dL (5-24); Calcium* 8.5 mg/dL (8.4-10.6); Glucose* 102 mg/dL (60-115); Phosphorus* 4.6 mg/dL (2.5-4.5)
[2023-04-18 19:55] LABS: Sodium* 121 mmol/L (135-149)
[2023-04-18] MEDS: ENOXAPARIN 40 MG/0.4 ML INJ SUBCUT (22:30)
[2023-04-18] MEDS: ZOLPIDEM 5 MG TABLET PO (22:31)
[2023-04-19] VITALS (10 sets, daily range): BP systolic 99–111; BP diastolic 60–79; PULSE 70–81; RESP 16–20; TEMP 36.4–36.6; O2SAT 91–96
--- NOTE | 2023-04-19 06:22 | PC.NURSE ---
End of shift- Pt is up independently in his room. No SOB, N/V, or pain throughout the night. VSS on RA. Tele was NSR. 3+ pitting edema in BLE and Bilateral feet. Abdomen is firm and distended upon palpitation. BS are active. No information to be given out to anyone. 3% was stopped at 0200, saline locked. 1800 ml fluid restriction... No PO intake overnight. Calls appropriately.
[2023-04-19 06:49] LABS: Hematocrit 41.9 % (37.0-53.0); Hemoglobin* 14.2 gm/dL (13.5-17.5); Mean Corpuscular HGB Conc 34 gm/dL (32-36); Mean Corpuscular Hemoglobin 35 pg (26-34); Mean Corpuscular Volume 104 fL (80-100); Platelet Count* 643 K/uL (140-440); Red Blood Count 4.04 m/uL (4.30-5.90); White Blood Count* 24.32 K/uL (4.50-11.00)
[2023-04-19 06:54] LABS: HCO3 VBG 29 mmol/L (21-28); Lactate* 1.1 mmol/L (0.5-1.9); PCO2 VBG 51 mmHG (40-50); PO2 VBG 21.6 mmHG (25-47); pH VBG 7.363 (7.32-7.43)
[2023-04-19 07:10] LABS: Albumin* 3.1 g/dL (3.3-5.0); Chloride* 88 mmol/L (96-114)
[2023-04-19 07:11] LABS: Potassium* 5.8 mmol/L (3.6-5.1); Slide Review Reflex No
[2023-04-19 07:12] LABS: Creatinine* 1.2 mg/dL (0.5-1.5); Est. Creatinine Clearance* 97.45; Estimated Glomerular Filt Rate 77 ml/min
[2023-04-19 07:13] LABS: Alanine Aminotransferase* 97 U/L (4-50); Alkaline Phosphatase* 438 U/L (40-150); Aspartate Amino Transferase* 275 U/L (12-35); Bilirubin Total* 4.3 mg/dL (0.1-1.5); Blood Urea Nitrogen* 36 mg/dL (5-24); Carbon Dioxide* 22 mmol/L (20-32); Glucose* 80 mg/dL (60-115); Phosphorus* 4.9 mg/dL (2.5-4.5); Total Protein* 6.2 g/dL (6.0-8.3)
[2023-04-19 07:14] LABS: Calcium* 9.1 mg/dL (8.4-10.6)
[2023-04-19 07:25] LABS: Anion Gap 11 mEq/L (7-15); Sodium* 121 mmol/L (135-149)
[2023-04-19 08:31] LABS: Gamma Glutamyl Transpeptidase* 1825 U/L (8-55)
[2023-04-19 08:46] LABS: C Reactive Protein* 5.2 mg/dL (0.5-1.0)
[2023-04-19] MEDS: DESMOPRESSIN ACETATE 4 MCG/ML inj 2 MCG IVP ×2 (08:54→22:47)
[2023-04-19] MEDS: OMEPRAZOLE 20 MG CAPSULE DR PO ×2 (08:57→22:47)
[2023-04-19] MEDS: LACTULOSE 20 GM/30 ML PO (08:57)
[2023-04-19] MEDS: FOLIC ACID 1 MG TABLET PO (08:57)
[2023-04-19] MEDS: MULTIVITAMIN/MINERALS 1 TABLET 1 TAB PO (08:57)
[2023-04-19] MEDS: PROPRANOLOL ER 80 MG CAP 160 MG PO (08:58)
[2023-04-19] MEDS: THIAMINE 100 MG TABLET 250 MG PO ×2 (08:59→22:45)
[2023-04-19 09:00] LABS: Procalcitonin* 1.42 ng/mL (<0.50)
[2023-04-19] MEDS: SODIUM ZIRCONIUM CYCLOSILICATE 10 GM PO (09:00)
[2023-04-19] MEDS: FUROSEMIDE 40 MG TABLET 140 MG PO (09:15)
[2023-04-19] MEDS: SODIUM CHLORIDE 0.9 % (FLUSH) 10 ML SYRINGE 5 ML IVF ×2 (09:16→22:47)
[2023-04-19] MEDS: SPIRONOLACTONE 100 MG TABLET 400 MG PO (09:16)
--- NOTE | 2023-04-19 10:34 | CRLHL7_ITS ---
For Patients: As a result of the Century Cures Act, medical imaging exams and procedure reports are released immediately into your electronic medical record. You may view this report before your referring provider. If you have questions, please contact your health care provider. INDICATION: Portal hypertension, cirrhosis. TECHNIQUE: MRI and MRCP of the abdomen acquired without IV contrast. COMPARISON: CT chest, abdomen, pelvis 03/26/2023. Abdominal ultrasound 03/27/2023. FINDINGS: The liver is enlarged measuring 25.7 cm in length. There is enlargement of the left hepatic lobe and non-smooth liver contour suggesting cirrhosis. Mild diffuse hepatic steatosis. Subcentimeter T2 hyperintense lesion in the posterior right hepatic lobe (series 7, image 19). The spleen is enlarged measuring 13.7 cm in length. Small splenule. Large amount of free fluid in the upper abdomen. The gallbladder is contracted with mild wall thickening and surrounding fluid. This is likely related to underlying liver disease rather than gallbladder inflammation. No gallstones are identified. No intra or extrahepatic bile duct dilation. The common bile duct measures 2 mm in diameter without intraductal filling defect. The unenhanced pancreas, kidneys, and adrenal glands are normal in appearance. No dilation of the main pancreatic duct. No bowel dilation. Mildly prominent maren hepatis lymph nodes are likely reactive. Small left pleural effusion. Body wall edema. IMPRESSION: 1. Moderate hepatomegaly with enlargement of the left hepatic lobe and non-smooth liver contour suggesting cirrhosis. Findings of portal hypertension including splenomegaly and large volume ascites. 2. Subcentimeter T2 hyperintense lesion in the right hepatic lobe is incompletely characterized without IV contrast. This is indeterminate in the setting of cirrhosis and no definite corresponding lesion is seen on prior exams. Recommend further evaluation with contrast enhanced MRI at a clinically appropriate time. 3. Mild gallbladder wall thickening and fluid in the gallbladder fossa likely related to underlying liver disease. No biliary dilation or intraductal filling defects. 4. Small left pleural effusion and body wall edema. 5. Findings discussed with Rakan Lorenz at 3:06 p.m. on 04/19/2023. Dictated by China Elias MD @ 04/19/2023 3:08:57 PM (Electronically Signed)
--- NOTE | 2023-04-19 10:50 | PM.IMPN1 ---
Progress Note: A&P Assessment and plan (1) Ascites due to alcoholic cirrhosis: Problem details: -w/liver injury pattern (hyperbilirubinemia direct and indirect) and peripheral edema + ascites, mild coagulopathy, moderate (but improving on lactulose) hyperammonemia -therapeutic paracentesis 04/17/2023; 7.7 L followed by albumin infusion. Culture pending, NTD -has established care with [facility] Status: Acute (2) Hyponatremia: Problem details: will need fluid restriction - specifically to get >120 desmopressin 2 mcg IV b.i.d., with 250cc of 3% @ 30 cc/hr and fluid restriction Follow BMP Status: Acute (3) Hyperammonemia: Problem details: -lactulose b.i.d.. Ammonia level is decreasing. GI recommended not trending and shoot for 2-3 BMs a day. -no obvious encephalopathy at this point Status: Acute (4) Alcoholic hepatitis: Problem details: Moderately severe with new onset jaundice/hyperbilirubinemia and elevated transaminases. Imaging (CT) on 03/29 shows no other obvious complication in the biliary tract or portal vein thrombosis. MRI ordered 04/19/21 MELD 04/17 = 18 MELD 04/19 = 16 Status: Acute (5) Sinus tachycardia: Problem details: ECG is sinus tach. no known cardiac disease. echo normal from Mar 2023 admission. -trial propranolol ER daily, starting 04/18/2023 w/persistent hyperkalemia will keep dose as low as possible (HR <110) - no known varices but with HR >120 and BP elevated - reducing risk. no known bleeding. 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 improving over the last several weeks Status: Acute (8) Hyperkalemia, diminished renal excretion: Problem details: multifactorial: large doses of potassium sparing (blocks aldactone) diuretic (spironolactone), decreased blood flood to the kidney with fluid restriction b/c lasix managing with (as a side effect) lactulose, lasix Status: Acute (9) Hypercapnia with mixed acid-base disorder: Problem details: contraction alkalosis; diarrhea Status: Acute Subjective Date Seen: 04/19/23 Interval history: Daily Progress Note - Hospital #: 3 CC: Abdominal distension/alcoholic liver disease with ascites, severe hyponatremia OVERNIGHT UPDATES FROM STAFF & MED, LAB, IMAGING UPDATES Overnight Srinath did well. He slept well with the Ambien. Feels about the same. distended abdomen, mild SOB, jaundiced. Still resisting talking to his family about the entire issue. RN note: End of shift- Pt is up independently in his room. No SOB, N/V, or pain throughout the night. VSS on RA. Tele was NSR. 3+ pitting edema in BLE and Bilateral feet. Abdomen is firm and distended upon palpitation. BS are active. No information to be given out to anyone. 3% was stopped at 0200, saline locked. 1800 ml fluid restriction... No PO intake overnight. Calls appropriately. 7.7 L of straw-colored fluid was obtained on 04/17 via standard paracentesis technique. We appreciate the assistance of our general surgeon colleague Dr. Charissa Hernandez fluid culture is pending, NTD. There was no gram stain or other labs obtained from this fluid - however full workup on diagnostic tap. Blood pressure and pulse have nicely responded to the propranolol. Remains afebrile No respiratory distress, room air oxygen sats are 96% Weight is about a 1.5 kilos to 110.8kg, but down from 118kg measuring girth and decreased minimally overnight, 1/4cm White count continues to be elevated and vacillating between 21 and 28,000 Hemoglobin is more concentrated up to 14.2 Platelets vacillate between 570 and 807,000 INR climbing to 1.28 PH is normal, less alkalotic previous admissions but CO2 is also up. likely a mixed acid base balance (RTA) Sodium is 121, potassiums up to 5.8 Lactate is improved to 1.1 Creatinine is stable but mildly elevated Phosphorus is 4.9 Bilirubin is 4.3 All is LFTs are stable and vacillating 3-8 times normal Albumin is a touch low at 3.1 CRP is mildly elevated Procalcitonin is mildly elevated, again vacillating between 1.1 and 1.4 All cultures are negative to date Objective: Jaundiced. Awake and alert. Vitals: tachycardia less; otherwise stable see above Lungs: Clear. Abdomen: Distended but much improved from admission Cardiac: S1S2. Disposition/Potential discharge - Likely to return to previous living situation. Today I spent 50minutes seeing the patient, reviewing Expanse and EPIC notes/diagnostics, discussing the care plan with our care time that includes social work, PT/OT, pharmacy, RT, shelter and documenting my impressions and plan in the medical record. Prolonged Physician Services [id number] ([facility]) in conjunction with: [id number] (subsequent visit; 50 mins + 15 mins prolonged services = 65 mins total) I then went back for 15 mins to discuss the findings of ..... My 15 minute conversation (then 15mins with patient) with [facility], Dr. George. We discussed the elevated white blood cell count, hypo date tree me a, hyperkalemia, dosing of lactulose, propranolol, spironolactone. Discussed timing of EGD and TIPS. No immediate need to transfer. Continue to work toward stabilization of electrolytes and outpatient follow-up with hepatology. Exam Const: Vital Signs, click to edit/add: Vital Signs - 24 hr 04/18/23 15:00 04/18/23 15:00 04/18/23 17:00 Temperature Pulse Rate 89 Pulse Rate [Pulse Oximeter] 82 Respiratory Rate 20 Blood Pressure [Le ft Arm] 105/72 Pulse Oximetry 94 95 Oxygen Delivery Me thod Room Air Room Air 04/18/23 19:00 04/18/23 20:18 04/18/23 23:00 Temperature 97.8 F 98.0 F Pulse Rate 73 Pulse Rate [Pulse Oximeter] 74 74 Respiratory Rate 18 16 Blood Pressure [Le ft Arm] 95/67 104/74 Pulse Oximetry 93 91 Oxygen Delivery Me thod Room Air Room Air 04/18/23 23:00 04/19/23 00:54 04/19/23 01:00 Temperature Pulse Rate 73 Pulse Rate [Pulse Oximeter] Respiratory Rate Blood Pressure [Le ft Arm] Pulse Oximetry 91 Oxygen Delivery Me thod Room Air 04/19/23 03:00 04/19/23 07:00 04/19/23 07:00 Temperature 97.9 F 97.7 F Pulse Rate 75 Pulse Rate [Pulse Oximeter] 70 81 Respiratory Rate 18 16 Blood Pressure [Le ft Arm] 110/74 111/66 Pulse Oximetry 93 96 Oxygen Delivery Me thod Room Air Room Air 04/19/23 09:00 Temperature Pulse Rate Pulse Rate [Pulse Oximeter] Respiratory Rate Blood Pressure [Le ft Arm] Pulse Oximetry 96 Oxygen Delivery Me thod Room Air Labs Labs: Laboratory Results - last 24 hr 04/18/23 04/18/23 04/19/23 12:53 19:15 05:55 WBC 24.32 H RBC 4.04 L Hgb 14.2 Hct 41.9 MCV 104 H MCH 35 H MCHC 34 Plt Count 643 H VBG pH 7.463 H 7.363 VBG pCO2 32 L 51 H VBG pO2 71.1 H 21.6 L VBG HCO3 23 29 H Sodium 119 L* 121 L* 121 L* Potassium 5.3 H 5.5 H 5.8 H Chloride 88 L 88 L 88 L Carbon Dioxide 22 26 22 Anion Gap 9 7 11 BUN 29 H 32 H 36 H Creatinine 1.2 1.3 1.2 Estimated Creat Clear 97.45 89.95 97.45 Estimated GFR 77 70 77 Glucose 126 H 102 80 Lactate 2.3 H 1.5 1.1 Calcium 8.5 8.5 9.1 Phosphorus 4.6 H 4.9 H Total Bilirubin 4.3 H Direct Bilirubin 3.0 H GGT 1825 H AST 275 H ALT 97 H Alkaline Phosphatase 438 H Ammonia 35.0 H C-Reactive Protein 5.2 H Total Protein 6.2 Albumin 3.2 L 3.1 L Procalcitonin 1.42 H Lab Acknowledgement 04/19/23 08:30 WBC RBC Hgb Hct MCV MCH MCHC Plt Count VBG pH VBG pCO2 VBG pO2 VBG HCO3 Sodium Potassium Chloride Carbon Dioxide Anion Gap BUN Creatinine Estimated Creat Clear Estimated GFR Glucose Lactate Calcium Phosphorus Total Bilirubin Direct Bilirubin GGT AST ALT Alkaline Phosphatase Ammonia C-Reactive Protein Total Protein Albumin Procalcitonin Lab Acknowledgement Test Added
[2023-04-19 11:29] LABS: Chloride* 90 mmol/L (96-114)
[2023-04-19 11:30] LABS: Potassium* 4.4 mmol/L (3.6-5.1)
[2023-04-19 11:32] LABS: Anion Gap 10 mEq/L (7-15); Carbon Dioxide* 21 mmol/L (20-32); Creatinine* 1.3 mg/dL (0.5-1.5); Est. Creatinine Clearance* 89.95; Estimated Glomerular Filt Rate 70 ml/min
[2023-04-19 11:33] LABS: Blood Urea Nitrogen* 37 mg/dL (5-24); Calcium* 8.5 mg/dL (8.4-10.6); Glucose* 127 mg/dL (60-115)
[2023-04-19 11:57] LABS: Chloride* 90 mmol/L (96-114); Potassium* 4.9 mmol/L (3.6-5.1)
[2023-04-19 12:00] LABS: Anion Gap 11 mEq/L (7-15); Carbon Dioxide* 21 mmol/L (20-32); Creatinine* 1.3 mg/dL (0.5-1.5); Est. Creatinine Clearance* 89.95; Estimated Glomerular Filt Rate 70 ml/min
[2023-04-19 12:01] LABS: Blood Urea Nitrogen* 37 mg/dL (5-24); Calcium* 8.8 mg/dL (8.4-10.6); Glucose* 122 mg/dL (60-115)
[2023-04-19 12:13] LABS: Sodium* 122 mmol/L (135-149)
[2023-04-19 12:14] LABS: Sodium* 121 mmol/L (135-149)
--- NOTE | 2023-04-19 15:16 | PC.NURSE ---
Patient alert and oriented to person, place, time, and situation. Patient pleasant and cooperative to staff. Ambulates independently in room, and has frequent bowel movements due to Lactulose use per MAR. Patient reports no pain, right abdominal puncture site is dry, clean, and intact with no redness or swelling present. Patient tolerates diet fairly and adheres to fluid restriction protocol appropriately.
--- NOTE | 2023-04-19 18:00 | PC.NURSE ---
Pt alert and oriented. Pt pleasant and cooperative. Pt had no complaints of pain. Pt independent in room. Pt?s steri-strips intact. (shift 15-19)? ?
[2023-04-19 18:48] LABS: Chloride* 90 mmol/L (96-114); Potassium* 4.8 mmol/L (3.6-5.1)
[2023-04-19 18:50] LABS: Creatinine* 1.4 mg/dL (0.5-1.5); Est. Creatinine Clearance* 83.53; Estimated Glomerular Filt Rate 64 ml/min
[2023-04-19 18:51] LABS: Anion Gap 8 mEq/L (7-15); Blood Urea Nitrogen* 38 mg/dL (5-24); Calcium* 8.1 mg/dL (8.4-10.6); Carbon Dioxide* 24 mmol/L (20-32); Glucose* 89 mg/dL (60-115)
[2023-04-19 18:57] LABS: Sodium* 122 mmol/L (135-149)
[2023-04-19 22:01] LABS: Sodium* 122 mmol/L (135-149)
[2023-04-19] MEDS: ZOLPIDEM 5 MG TABLET PO (22:45)
[2023-04-19] MEDS: ENOXAPARIN 40 MG/0.4 ML INJ SUBCUT (22:47)
[2023-04-20] VITALS (9 sets, daily range): BP systolic 98–128; BP diastolic 68–90; PULSE 70–91; RESP 18–20; TEMP 36.1–36.7; O2SAT 94–99
[2023-04-20 02:33] LABS: Sodium* 123 mmol/L (135-149)
[2023-04-20 06:30] LABS: HCO3 VBG 28 mmol/L (21-28); PCO2 VBG 49 mmHG (40-50); PO2 VBG 22.9 mmHG (25-47); pH VBG 7.366 (7.32-7.43)
--- NOTE | 2023-04-20 06:44 | PC.NURSE ---
SHIFT NOTE -: Pt is A&O. Denies pain, CP, and N/V. Pt stated his SOB is markedly improved. Oxygen saturations mid 90's on RA. Abdomen is distended and tender to the touch, steri strips to right side of abdomen are C/D/I. Pt up independent in his room, call appropriately. Pt was asking lots of questions about Peng, pt does sound as though he wants to transfer today, he states his daughters are coming to visit him this morning, pt still wishes that no information be given regarding his condition/POC.
[2023-04-20 06:46] LABS: Hemoglobin* 13.8 gm/dL (13.5-17.5); Mean Corpuscular HGB Conc 35 gm/dL (32-36); Mean Corpuscular Hemoglobin 36 pg (26-34); Mean Corpuscular Volume 104 fL (80-100); Platelet Count* 558 K/uL (140-440); Red Blood Count 3.85 m/uL (4.30-5.90); White Blood Count* 23.37 K/uL (4.50-11.00)
[2023-04-20 06:53] LABS: Slide Review Reflex No
[2023-04-20 06:59] LABS: Albumin* 2.8 g/dL (3.3-5.0)
[2023-04-20 07:02] LABS: Bilirubin Direct* 2.9 mg/dL (0.0-0.5); Bilirubin Total* 3.9 mg/dL (0.1-1.5)
[2023-04-20 07:03] LABS: Alanine Aminotransferase* 95 U/L (4-50); Alkaline Phosphatase* 429 U/L (40-150); Aspartate Amino Transferase* 221 U/L (12-35); INR 1.26 (0.91-1.10); Prothrombin Time 16.5 Seconds; Total Protein* 6.1 g/dL (6.0-8.3)
[2023-04-20 07:04] LABS: Albumin* 2.8 g/dL (3.3-5.0); Chloride* 91 mmol/L (96-114); Sodium* 125 mmol/L (135-149)
[2023-04-20 07:07] LABS: Anion Gap 10 mEq/L (7-15); Blood Urea Nitrogen* 41 mg/dL (5-24); Carbon Dioxide* 24 mmol/L (20-32); Creatinine* 1.7 mg/dL (0.5-1.5); Est. Creatinine Clearance* 68.79; Estimated Glomerular Filt Rate 51 ml/min; Glucose* 95 mg/dL (60-115); Phosphorus* 4.5 mg/dL (2.5-4.5)
[2023-04-20 07:08] LABS: Calcium* 8.5 mg/dL (8.4-10.6)
[2023-04-20 07:13] LABS: Gamma Glutamyl Transpeptidase* 1890 U/L (8-55)
[2023-04-20 07:15] LABS: Procalcitonin* 1.35 ng/mL (<0.50)
[2023-04-20] MEDS: FUROSEMIDE 40 MG TABLET 140 MG PO (08:19)
[2023-04-20] MEDS: SPIRONOLACTONE 100 MG TABLET 300 MG PO (08:20)
[2023-04-20] MEDS: OMEPRAZOLE 20 MG CAPSULE DR PO ×2 (08:50→21:15)
[2023-04-20] MEDS: FOLIC ACID 1 MG TABLET PO (08:51)
[2023-04-20] MEDS: THIAMINE 100 MG TABLET 250 MG PO ×2 (08:51→21:15)
[2023-04-20] MEDS: MULTIVITAMIN/MINERALS 1 TABLET 1 TAB PO (08:52)
[2023-04-20] MEDS: DESMOPRESSIN ACETATE 4 MCG/ML inj 2 MCG IVP ×2 (08:53→21:14)
--- NOTE | 2023-04-20 12:41 | PM.IMPN1 ---
Progress Note: A&P Assessment and plan (1) Ascites due to alcoholic cirrhosis: Problem details: -w/liver injury pattern (hyperbilirubinemia direct and indirect) and peripheral edema + ascites, mild coagulopathy, moderate (but improving on lactulose) hyperammonemia -therapeutic paracentesis 04/17/2023; 7.7 L followed by albumin infusion. Culture pending, NTD -has established care with [facility] - Dr. Bello (hepatobiliary [facility]) is set to see him. discussed his case on 04/19 - recommended transfer Status: Acute (2) Alcoholic hepatitis: Problem details: Moderately severe with new onset jaundice/hyperbilirubinemia and elevated transaminases. Imaging (CT) on 03/29 shows no other obvious complication in the biliary tract or portal vein thrombosis. MRCP completed 04/19/23. portal hypertension; splenomegaly. 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 Follow BMP Status: Acute (5) Hyperkalemia, diminished renal excretion: Problem details: multifactorial: large doses of potassium sparing (blocks aldactone) diuretic (spironolactone), decreased blood flood to the kidney with fluid restriction b/c lasix managing with (as a side effect) lactulose, lasix trial of lokma x 1 on 04/19/23 Status: Acute (6) Hypercapnia with mixed acid-base disorder: Problem details: contraction alkalosis; diarrhea Status: Acute (7) Sinus tachycardia: Problem details: ECG is sinus tach. no known cardiac disease. echo normal from Mar 2023 admission. -trial propranolol ER daily, starting 04/18/2023 w/persistent hyperkalemia will keep dose as low as possible (hold for HR <110) - no known varices but with HR >120 and BP elevated - reducing risk. no known bleeding. Status: Acute (8) Hyperammonemia: Problem details: -lactulose b.i.d.. Ammonia level is decreasing. GI recommended not trending and shoot for 2-3 BMs a day. -no obvious encephalopathy at this point Status: Acute (9) Jaundice: Problem details: Likely due to acute on chronic liver disease from alcohol. improving over the last several weeks Status: Acute Subjective Date Seen: 04/20/23 Interval history: Daily Progress Note - Hospital Medicine Day #: 4 CC: Abdominal distension/alcoholic liver disease with ascites, severe hyponatremia, unexplained leukocytosis/thrombocytosis, intermittent BAILEE, hyperkalemia. OVERNIGHT UPDATES FROM STAFF & MED, LAB, IMAGING UPDATES More REAL and abdominal pressure. Less rest (mostly from nursing interventions) last night. holding lactulose and propranolol today secondary to hold parameters. He had his MRCP yesterday and understands his liver failure is progressing to cirrhosis. He continues to have an unexplained WBC elevation without evidence of infection and thrombocytopenia that is contrary to what one would expect with alcoholic liver disease. RN note: Pt is A&O. Denies pain, CP, and N/V. Pt stated his SOB is markedly improved. Oxygen saturations mid 90's on RA. Abdomen is distended and tender to the touch, steri strips to right side of abdomen are C/D/I. Pt up independent in his room, call appropriately. Pt was asking lots of questions about Peng, pt does sound as though he wants to transfer today, he states his daughters are coming to visit him this morning, pt still wishes that no information be given regarding his condition/POC. 7.7 L of straw-colored fluid was obtained on 04/17 via standard paracentesis technique. We appreciate the assistance of our general surgeon colleague Dr. Charissa Hernandez fluid culture is pending, NTD. There was no gram stain or other labs obtained from this fluid - however full workup on diagnostic tap. Blood pressure and pulse have nicely responded to the propranolol - holding today for soft blood pressures (likely not clearing the medication b/c of hepatic failure) Remains afebrile No respiratory distress, room air oxygen sats are 96% Weight is increasing daily, but down from 118kg presentation. measuring girth and decreased minimally overnight, 1/4cm All cultures are negative to date White count today is 23.4 Hemoglobin stable Platelets 558 INR stable 1.26 PH is stable with less CO2 retention. Sodium is up to 125. Potassium is high normal. Creatinine is 1.7 which is up from his baseline prior to the initiation of diuretics was 0.8 Total bilirubin is down to 3.9. LFTs continue to vacillate. Procalcitonin and C reactive protein remain elevated. Procalcitonin out of proportion to the CRP. MRCP 04/19/2023 1. Moderate hepatomegaly with enlargement of the left hepatic lobe and non-smooth liver contour suggesting cirrhosis. Findings of portal hypertension including splenomegaly and large volume ascites. 2. Subcentimeter T2 hyperintense lesion in the right hepatic lobe is incompletely characterized without IV contrast. This is indeterminate in the setting of cirrhosis and no definite corresponding lesion is seen on prior exams. Recommend further evaluation with contrast enhanced MRI at a clinically appropriate time. 3. Mild gallbladder wall thickening and fluid in the gallbladder fossa likely related to underlying liver disease. No biliary dilation or intraductal filling defects. 4. Small left pleural effusion and body wall edema. Objective: Jaundiced. Awake and alert. Vitals: tachycardia less; otherwise stable see above Lungs: Clear. Abdomen: Distended and getting worse daily Cardiac: S1S2. Disposition/Potential discharge - Likely to return to previous living situation. Today I spent 50minutes seeing the patient, reviewing Expanse and EPIC notes/diagnostics, discussing the care plan with our care time that includes social work, PT/OT, pharmacy, RT, fci and documenting my impressions and plan in the medical record. Exam Const: Vital Signs, click to edit/add: Vital Signs - 24 hr 04/19/23 12:45 04/19/23 15:15 04/19/23 15:58 Temperature 97.9 F 97.8 F Pulse Rate [Pulse Oximeter] 79 73 Respiratory Rate 20 20 Blood Pressure [Le ft Arm] 99/60 106/70 Pulse Oximetry 94 93 93 Oxygen Delivery Me thod Room Air Room Air Oxygen Flow Rate 04/19/23 15:59 04/19/23 20:00 04/19/23 23:00 Temperature 97.6 F Pulse Rate [Pulse Oximeter] 76 Respiratory Rate 20 18 18 Blood Pressure [Le ft Arm] 106/79 Pulse Oximetry 93 95 Oxygen Delivery Me thod Room Air Room Air Oxygen Flow Rate 0 0 04/20/23 00:00 04/20/23 00:00 04/20/23 01:00 Temperature 97 F L Pulse Rate [Pulse Oximeter] 78 Respiratory Rate 20 Blood Pressure [Le ft Arm] 109/79 Pulse Oximetry 94 94 95 Oxygen Delivery Me thod Room Air Room Air Oxygen Flow Rate 0 04/20/23 04:00 04/20/23 08:47 04/20/23 09:00 Temperature 97.6 F 97.5 F L Pulse Rate [Pulse Oximeter] 80 84 Respiratory Rate 18 20 Blood Pressure [Le ft Arm] 100/69 98/69 Pulse Oximetry 95 96 96 Oxygen Delivery Me thod Room Air Room Air Room Air Oxygen Flow Rate 0 Labs Labs: Laboratory Results - last 24 hr 04/19/23 04/19/23 04/19/23 13:04 18:11 21:34 WBC RBC Hgb Hct MCV MCH MCHC Plt Count INR VBG pH VBG pCO2 VBG pO2 VBG HCO3 Sodium 122 L* 122 L* Potassium 4.8 Chloride 90 L Carbon Dioxide 24 Anion Gap 8 BUN 38 H Creatinine 1.4 Estimated Creat Clear 83.53 Estimated GFR 64 Glucose 89 Calcium 8.1 L Phosphorus Total Bilirubin Direct Bilirubin GGT AST ALT Alkaline Phosphatase C-Reactive Protein Total Protein Albumin Procalcitonin Lab Acknowledgement Test Added 04/20/23 04/20/23 04/20/23 02:05 05:50 05:50 WBC 23.37 H RBC 3.85 L Hgb 13.8 Hct 40.0 MCV 104 H MCH 36 H MCHC 35 Plt Count 558 H INR 1.26 H VBG pH 7.366 VBG pCO2 49 VBG pO2 22.9 L VBG HCO3 28 Sodium 123 L* 125 L Potassium 5.0 Chloride 91 L Carbon Dioxide 24 Anion Gap 10 BUN 41 H Creatinine 1.7 H Estimated Creat Clear 68.79 Estimated GFR 51 Glucose 95 Calcium 8.5 Phosphorus 4.5 Total Bilirubin 3.9 H Direct Bilirubin 2.9 H GGT 1890 H AST 221 H ALT 95 H Alkaline Phosphatase 429 H C-Reactive Protein 5.0 H Total Protein 6.1 Albumin 2.8 L 2.8 L Procalcitonin 1.35 H Lab Acknowledgement
[2023-04-20] MEDS: SODIUM CHLORIDE 0.9 % (FLUSH) 10 ML SYRINGE 5 ML IVF ×2 (14:15→21:15)
[2023-04-20 17:45] LABS: Appearance Urine Clear (Clear); Bilirubin Urine 1+ (Negative); Blood Urine Negative (Negative); Color Urine Yellow (Yellow); Glucose Urine Negative (Negative); Ketones Urine Negative (Negative); Leukocyte Esterase Urine Negative (Negative); Nitrite Urine Negative (Negative); Protein Urine Negative (Negative); Specific Gravity Urine 1.015 (1.000-1.030); pH Urine 5.5 (5.0-8.5)
--- NOTE | 2023-04-20 19:50 | PC.NURSE ---
shift note: pt up indept. Abd distended & hard. abd girth 46 inches around. BS hypo. pt states he had 4 lg loose BM's today. Pt tolerating regular diet. LS clr. vss stable. pt afeb. UA collected. IV patent
[2023-04-20] MEDS: ENOXAPARIN 40 MG/0.4 ML INJ SUBCUT (21:14)
[2023-04-20] MEDS: ZOLPIDEM 5 MG TABLET PO (21:15)
[2023-04-21] VITALS (7 sets, daily range): BP systolic 110–130; BP diastolic 81–94; PULSE 89–109; RESP 16–20; TEMP 36.4–36.8; O2SAT 91–98
[2023-04-21] MEDS: LORazepam 0.5 MG TABLET PO ×2 (01:05→21:36)
--- NOTE | 2023-04-21 06:44 | PC.NURSE ---
[id number]: Patient cooperative with cares. Independent. C/o URQ pain w/movement. MD updated. No new orders. PRN medications administered for sleep. Patient acknowledges getting some sleep during noc.
[2023-04-21 07:40] LABS: HCO3 VBG 23 mmol/L (21-28); PCO2 VBG 36 mmHG (40-50); PO2 VBG 59.7 mmHG (25-47); pH VBG 7.417 (7.32-7.43)
[2023-04-21 07:45] LABS: Hematocrit 40.8 % (37.0-53.0); Hemoglobin* 14.1 gm/dL (13.5-17.5); Mean Corpuscular HGB Conc 35 gm/dL (32-36); Mean Corpuscular Hemoglobin 36 pg (26-34); Mean Corpuscular Volume 103 fL (80-100); Platelet Count* 533 K/uL (140-440); Red Blood Count 3.96 m/uL (4.30-5.90)
[2023-04-21 07:47] LABS: Slide Review Reflex No; White Blood Count* 27.29 K/uL (4.50-11.00)
[2023-04-21 07:56] LABS: INR 1.22 (0.91-1.10); Prothrombin Time 16.1 Seconds
[2023-04-21 08:18] LABS: Albumin* 2.9 g/dL (3.3-5.0)
[2023-04-21 08:19] LABS: Chloride* 92 mmol/L (96-114)
[2023-04-21 08:20] LABS: Potassium* 5.2 mmol/L (3.6-5.1)
[2023-04-21 08:21] LABS: Alkaline Phosphatase* 423 U/L (40-150); Aspartate Amino Transferase* 224 U/L (12-35); Total Protein* 6.3 g/dL (6.0-8.3)
[2023-04-21 08:22] LABS: Alanine Aminotransferase* 92 U/L (4-50); Anion Gap 9 mEq/L (7-15); Carbon Dioxide* 18 mmol/L (20-32); Creatinine* 1.3 mg/dL (0.5-1.5); Est. Creatinine Clearance* 89.95; Estimated Glomerular Filt Rate 70 ml/min
[2023-04-21 08:23] LABS: Blood Urea Nitrogen* 38 mg/dL (5-24); Calcium* 8.4 mg/dL (8.4-10.6); Glucose* 102 mg/dL (60-115); Phosphorus* 4.1 mg/dL (2.5-4.5)
[2023-04-21 08:24] LABS: C Reactive Protein* 4.4 mg/dL (0.5-1.0)
[2023-04-21 08:30] LABS: Sodium* 119 mmol/L (135-149)
[2023-04-21 08:32] LABS: Gamma Glutamyl Transpeptidase* 1886 U/L (8-55); Procalcitonin* 1.06 ng/mL (<0.50)
[2023-04-21] MEDS: SODIUM CHLORIDE 0.9 % (FLUSH) 10 ML SYRINGE 5 ML IVF ×2 (09:16→21:33)
[2023-04-21] MEDS: FOLIC ACID 1 MG TABLET PO (09:16)
[2023-04-21] MEDS: THIAMINE 100 MG TABLET 250 MG PO ×2 (09:17→21:32)
[2023-04-21] MEDS: SPIRONOLACTONE 100 MG TABLET 300 MG PO (09:17)
[2023-04-21] MEDS: OMEPRAZOLE 20 MG CAPSULE DR PO ×2 (09:17→21:33)
[2023-04-21] MEDS: MULTIVITAMIN/MINERALS 1 TABLET 1 TAB PO (09:17)
[2023-04-21] MEDS: FUROSEMIDE 40 MG TABLET 140 MG PO (09:17)
[2023-04-21] MEDS: DESMOPRESSIN ACETATE 4 MCG/ML inj 2 MCG IVP (09:25)
[2023-04-21 13:54] LABS: Sodium* 122 mmol/L (135-149)
[2023-04-21 16:52] LABS: Sodium* 123 mmol/L (135-149)
--- NOTE | 2023-04-21 16:52 | PM.IMPN1 ---
Progress Note: A&P Assessment and plan (1) Ascites due to alcoholic cirrhosis: Problem details: -w/liver injury pattern (hyperbilirubinemia direct and indirect) and peripheral edema + ascites, mild coagulopathy, moderate (but improving on lactulose) hyperammonemia -therapeutic paracentesis 04/17/2023; 7.7 L followed by albumin infusion. Culture pending, NTD -has established care with [facility] - Dr. Bello (hepatobiliary [facility]) is set to see him. discussed his case on 04/19 - recommended transfer - On waitlist at [facility] - May need repeat paracentesis in the next few days. Status: Acute (2) Alcoholic hepatitis: Problem details: Moderately severe with new onset jaundice/hyperbilirubinemia and elevated transaminases. Imaging (CT) on 03/29 shows no other obvious complication in the biliary tract or portal vein thrombosis. MRCP completed 04/19/23. portal hypertension; splenomegaly. 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 - Worsened after holding 3% saline. Restarted that this morning with improvement in sodium again. He is now back up to 123 from 08/24 this morning. To prevent going up too quickly, hold 3% saline and DDAVP for the rest of today and recheck sodium in the morning. Will also decrease spironolactone dose and change furosemide to IV since he may not be absorbing it with massive ascites. Status: Acute (5) Hyperkalemia, diminished renal excretion: Problem details: multifactorial: large doses of potassium sparing (blocks aldactone) diuretic (spironolactone), decreased blood flood to the kidney with fluid restriction b/c lasix managing with (as a side effect) lactulose, lasix trial of lokma x 1 on 04/19/23 - decrease spironolactone dose and change furosemide dosing to IV as above Status: Acute (6) Hypercapnia with mixed acid-base disorder: Problem details: contraction alkalosis; diarrhea Status: Acute (7) Sinus tachycardia: Problem details: ECG is sinus tach. no known cardiac disease. echo normal from Mar 2023 admission. -trial propranolol ER daily, starting 04/18/2023 w/persistent hyperkalemia will keep dose as low as possible (hold for HR <110) - no known varices but with HR >120 and BP elevated - reducing risk. no known bleeding. Status: Acute (8) Hyperammonemia: Problem details: -lactulose b.i.d.. Ammonia level is decreasing. GI recommended not trending and shoot for 2-3 BMs a day. -no obvious encephalopathy at this point Status: Acute (9) Jaundice: Problem details: Likely due to acute on chronic liver disease from alcohol. improving over the last several weeks Status: Acute Subjective Time Seen by Provider: 09:30 Date Seen: 04/21/23 Interval history: Kannan continues to have RUQ pain. He feels he is filling up, about ?half full,? and would like to have another paracentesis. He is otherwise okay and denies any new concerns. He did have questions about his labs. He remains on the waiting list at [facility] where they have GI consult. Exam Narrative: Exam Narrative: General: No acute distress. Awake, alert, oriented x3. Jaundice. Cardiovascular: Mildly tachycardic, regular. Respiratory: Clear to auscultation bilaterally. No wheezes or crackles. Abdomen: Markedly distended, tense, site of paracentesis on right abdomen is without induration, drainage, or erythema. Const: Vital Signs, click to edit/add: Vital Signs - 24 hr 04/20/23 19:46 04/20/23 21:24 04/21/23 01:00 Temperature 98.0 F 97.8 F Pulse Rate [Pulse Oximeter] 90 91 Respiratory Rate 18 18 18 Blood Pressure [Le ft Arm] 128/90 H 106/79 Pulse Oximetry 99 95 95 Oxygen Delivery Me thod Room Air Room Air Room Air 04/21/23 01:00 04/21/23 09:12 04/21/23 09:12 Temperature 97.5 F L 98.3 F Pulse Rate [Pulse Oximeter] 99 89 Respiratory Rate 18 16 Blood Pressure [Le ft Arm] 113/81 130/94 H Pulse Oximetry 97 91 91 Oxygen Delivery Me thod Room Air Room Air Room Air 04/21/23 12:41 Temperature 98.3 F Pulse Rate [Pulse Oximeter] 96 Respiratory Rate 16 Blood Pressure [Le ft Arm] 118/81 Pulse Oximetry 95 Oxygen Delivery Me thod Room Air Labs Labs: Laboratory Results - last 24 hr 04/20/23 04/21/23 04/21/23 17:36 06:35 06:35 WBC 27.29 H* RBC 3.96 L Hgb 14.1 Hct 40.8 MCV 103 H MCH 36 H MCHC 35 Plt Count 533 H INR 1.22 H VBG pH 7.417 VBG pCO2 36 L VBG pO2 59.7 H VBG HCO3 23 Sodium 119 L* Potassium 5.2 H Chloride 92 L Carbon Dioxide 18 L Anion Gap 9 BUN 38 H Creatinine 1.3 Estimated Creat Clear 89.95 Estimated GFR 70 Glucose 102 Calcium 8.4 Phosphorus 4.1 Total Bilirubin 4.0 H Direct Bilirubin 3.0 H GGT 1886 H AST 224 H ALT 92 H Alkaline Phosphatase 423 H C-Reactive Protein 4.4 H Total Protein 6.3 Albumin 2.9 L 3.0 L Procalcitonin 1.06 H Urine Color Yellow Urine Appearance Clear Urine pH 5.5 Ur Specific Hamer 1.015 Urine Protein Negative Urine Glucose (UA) Negative Urine Ketones Negative Urine Blood Negative Urine Nitrite Negative Urine Bilirubin 1+ A Urine Urobilinogen 2.0 A Ur Leukocyte Esterase Negative 04/21/23 13:08 WBC RBC Hgb Hct MCV MCH MCHC Plt Count INR VBG pH VBG pCO2 VBG pO2 VBG HCO3 Sodium 122 L* Potassium Chloride Carbon Dioxide Anion Gap BUN Creatinine Estimated Creat Clear Estimated GFR Glucose Calcium Phosphorus Total Bilirubin Direct Bilirubin GGT AST ALT Alkaline Phosphatase C-Reactive Protein Total Protein Albumin Procalcitonin Urine Color Urine Appearance Urine pH Ur Specific Hamer Urine Protein Urine Glucose (UA) Urine Ketones Urine Blood Urine Nitrite Urine Bilirubin Urine Urobilinogen Ur Leukocyte Esterase
[2023-04-21] MEDS: ENOXAPARIN 40 MG/0.4 ML INJ SUBCUT (21:32)
[2023-04-21] MEDS: ZOLPIDEM 5 MG TABLET PO (21:33)
[2023-04-22 03:59] VITALS: BP 139/94; PULSE 106; RESP 20; TEMP 36.6; O2SAT 98
--- NOTE | 2023-04-22 05:06 | PC.NURSE ---
[id number]: Patient cooperative with cares. Alen wraps off overnight per patient request. Decreased lung sounds to R. posterior lobe. MD updated. No new orders.
[2023-04-22 07:09] LABS: HCO3 VBG 25 mmol/L (21-28); PCO2 VBG 40 mmHG (40-50); PO2 VBG 37.9 mmHG (25-47); pH VBG 7.407 (7.32-7.43)
[2023-04-22 07:18] LABS: Hematocrit 42.9 % (37.0-53.0); Hemoglobin* 14.5 gm/dL (13.5-17.5); Mean Corpuscular HGB Conc 34 gm/dL (32-36); Mean Corpuscular Hemoglobin 35 pg (26-34); Mean Corpuscular Volume 103 fL (80-100); Platelet Count* 515 K/uL (140-440); Red Blood Count 4.16 m/uL (4.30-5.90)
[2023-04-22 07:24] LABS: Slide Review Reflex No; White Blood Count* 26.48 K/uL (4.50-11.00)
[2023-04-22 07:36] LABS: INR 1.26 (0.91-1.10); Prothrombin Time 16.5 Seconds
[2023-04-22 07:38] LABS: Chloride* 91 mmol/L (96-114)
[2023-04-22 07:39] LABS: Potassium* 5.4 mmol/L (3.6-5.1)
[2023-04-22 07:40] LABS: Albumin* 2.9 g/dL (3.3-5.0)
[2023-04-22 07:41] LABS: Anion Gap 7 mEq/L (7-15); Carbon Dioxide* 22 mmol/L (20-32); Creatinine* 1.2 mg/dL (0.5-1.5); Est. Creatinine Clearance* 97.45; Estimated Glomerular Filt Rate 77 ml/min
[2023-04-22 07:42] LABS: Blood Urea Nitrogen* 36 mg/dL (5-24); Calcium* 8.5 mg/dL (8.4-10.6); Glucose* 100 mg/dL (60-115); Phosphorus* 4.2 mg/dL (2.5-4.5)
[2023-04-22 07:43] LABS: Alanine Aminotransferase* 86 U/L (4-50); Alkaline Phosphatase* 426 U/L (40-150); Aspartate Amino Transferase* 189 U/L (12-35); Bilirubin Direct* 2.9 mg/dL (0.0-0.5); Total Protein* 6.1 g/dL (6.0-8.3)
[2023-04-22 07:46] LABS: C Reactive Protein* 4.9 mg/dL (0.5-1.0); Sodium* 120 mmol/L (135-149)
[2023-04-22 07:56] LABS: Procalcitonin* 1.07 ng/mL (<0.50)
[2023-04-22 07:59] LABS: Gamma Glutamyl Transpeptidase* 1815 U/L (8-55)
[2023-04-22 08:25] VITALS: BP 125/93; PULSE 109; RESP 16; TEMP 37.3; O2SAT 95
[2023-04-22] MEDS: THIAMINE 100 MG TABLET 250 MG PO (09:28)
[2023-04-22] MEDS: SPIRONOLACTONE 100 MG TABLET 200 MG PO (09:28)
[2023-04-22] MEDS: OMEPRAZOLE 20 MG CAPSULE DR PO (09:29)
[2023-04-22] MEDS: FOLIC ACID 1 MG TABLET PO (09:29)
[2023-04-22] MEDS: SODIUM CHLORIDE 0.9 % (FLUSH) 10 ML SYRINGE 5 ML IVF (09:30)
[2023-04-22] MEDS: FUROSEMIDE 10 MG/ML inj 80 MG IVP (09:30)
[2023-04-22] MEDS: MULTIVITAMIN/MINERALS 1 TABLET 1 TAB PO (09:30)
[2023-04-22] MEDS: SODIUM ZIRCONIUM CYCLOSILICATE 10 GM PO (10:08)
[2023-04-22 11:42] VITALS: BP 127/91; PULSE 106; RESP 18; TEMP 36.6; O2SAT 96
--- NOTE | 2023-04-22 13:22 | PM.IMPN1 ---
Progress Note: A&P Assessment and plan (1) Ascites due to alcoholic cirrhosis: Problem details: -w/liver injury pattern (hyperbilirubinemia direct and indirect) and peripheral edema + ascites, mild coagulopathy, moderate (but improving on lactulose) hyperammonemia -therapeutic paracentesis 04/17/2023; 7.7 L followed by albumin infusion. Culture pending, NTD -has established care with [facility] - Dr. Bello (hepatobiliary [facility]) is set to see him. discussed his case on 04/19 - recommended transfer - On waitlist at [facility] - tentatively scheduled repeat therapeutic paracentesis for tomorrow morning. I spoke with Dr. Hernandez and let US know to keep a spot open around 11 am. Status: Acute (2) Alcoholic hepatitis: Problem details: Moderately severe with new onset jaundice/hyperbilirubinemia and elevated transaminases. Imaging (CT) on 03/29 shows no other obvious complication in the biliary tract or portal vein thrombosis. MRCP completed 04/19/23. portal hypertension; splenomegaly. 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 - Worsened after holding 3% saline. Restarted that this morning with improvement in sodium again. He is now back up to 123 from 08/24 this morning. To prevent going up too quickly, hold 3% saline and DDAVP for the rest of today and recheck sodium in the morning. Will also decrease spironolactone dose and change furosemide to IV since he may not be absorbing it with massive ascites. - Slight decrease after stopping DDAVP and 3% saline. Restart 3% saline and recheck later today. Status: Acute (5) Hyperkalemia, diminished renal excretion: Problem details: multifactorial: large doses of potassium sparing (blocks aldactone) diuretic (spironolactone), decreased blood flood to the kidney with fluid restriction b/c lasix managing with (as a side effect) lactulose, lasix trial of lokma x 1 on 04/19/23 - decrease spironolactone dose and change furosemide dosing to IV as above - these doses given for the first time 04/22/23. Potassium today (04/22) is elevated. Give dose of Lokelma and recheck later today. Status: Acute (6) Hypercapnia with mixed acid-base disorder: Problem details: contraction alkalosis; diarrhea Status: Resolved (7) Sinus tachycardia: Problem details: ECG is sinus tach. no known cardiac disease. echo normal from Mar 2023 admission. -trial propranolol ER daily, starting 04/18/2023 w/persistent hyperkalemia will keep dose as low as possible (hold for HR <110) - no known varices but with HR >120 and BP elevated - reducing risk. no known bleeding. Status: Acute (8) Hyperammonemia: Problem details: -lactulose b.i.d.. Ammonia level is decreasing. GI recommended not trending and shoot for 2-3 BMs a day. -no obvious encephalopathy at this point Status: Acute (9) Jaundice: Problem details: Likely due to acute on chronic liver disease from alcohol. improving over the last several weeks - 04/22/23 stabilized Status: Acute Subjective Time Seen by Provider: 10:30 Date Seen: 04/22/23 Interval history: Kannan feels like he's filling up again. He also complains of fluid in his ears and difficulty hearing because of it. We checked with [facility] and he is 4th on their waitlist. We inquired about other facilities where [place] [facility] consults and they also have no beds, according to [facility] bed control. I also spoke with Dr. Hernandez, who said she could do a repeat therapeutic paracentesis tomorrow late in the morning if he is still here then. Exam Narrative: Exam Narrative: General: No acute distress. Awake, alert, oriented. Jaundiced. Ears: Ear canals are patent. TMs are pearly diehl bilaterally with serous fluid behind them bilaterally, no erythema, no bulging. Cardiovascular: Mildly tachycardic, regular. Respiratory: Clear to auscultation bilaterally. No wheezes or crackles. Abdomen: Markedly distended, more so than yesterday, tense, site of paracentesis on right abdomen is without induration, drainage, or erythema. Extremities: 4+ doughy edema bilaterally with doughy edema to the mid back. Const: Vital Signs, click to edit/add: Vital Signs - 24 hr 04/21/23 16:44 04/21/23 16:44 04/21/23 20:05 Temperature 97.8 F 98.2 F Pulse Rate [Pulse Oximeter] 104 H 109 H Respiratory Rate 18 18 Blood Pressure [Le ft Arm] 110/88 123/92 H Pulse Oximetry 97 97 97 Oxygen Delivery Me thod Room Air Room Air Room Air 04/21/23 21:41 04/21/23 23:02 04/22/23 03:59 Temperature 98.1 F 97.8 F Pulse Rate [Pulse Oximeter] 104 H 106 H Respiratory Rate 20 20 20 Blood Pressure [Le ft Arm] 129/83 139/94 H Pulse Oximetry 98 98 98 Oxygen Delivery Me thod Room Air Room Air Room Air 04/22/23 08:25 04/22/23 08:25 04/22/23 11:42 Temperature 99.1 F 97.9 F Pulse Rate [Pulse Oximeter] 109 H 106 H Respiratory Rate 16 18 Blood Pressure [Le ft Arm] 125/93 H 127/91 H Pulse Oximetry 95 95 96 Oxygen Delivery Me thod Room Air Room Air Room Air Labs Labs: Laboratory Results - last 24 hr 04/21/23 04/21/23 04/22/23 13:08 16:29 06:22 WBC 26.48 H* RBC 4.16 L Hgb 14.5 Hct 42.9 MCV 103 H MCH 35 H MCHC 34 Plt Count 515 H INR 1.26 H VBG pH 7.407 VBG pCO2 40 VBG pO2 37.9 VBG HCO3 25 Sodium 122 L* 123 L* 120 L* Potassium 5.4 H Chloride 91 L Carbon Dioxide 22 Anion Gap 7 BUN 36 H Creatinine 1.2 Estimated Creat Clear 97.45 Estimated GFR 77 Glucose 100 Calcium 8.5 Phosphorus 4.2 Total Bilirubin 4.0 H Direct Bilirubin 2.9 H GGT 1815 H AST 189 H ALT 86 H Alkaline Phosphatase 426 H C-Reactive Protein 4.9 H Total Protein 6.1 Albumin 2.9 L Procalcitonin 04/22/23 06:22 WBC RBC Hgb Hct MCV MCH MCHC Plt Count INR VBG pH VBG pCO2 VBG pO2 VBG HCO3 Sodium Potassium Chloride Carbon Dioxide Anion Gap BUN Creatinine Estimated Creat Clear Estimated GFR Glucose Calcium Phosphorus Total Bilirubin Direct Bilirubin GGT AST ALT Alkaline Phosphatase C-Reactive Protein Total Protein Albumin 3.0 L Procalcitonin 1.07 H
--- NOTE | 2023-04-22 15:59 | PM.DST ---
Transfer Discharge Sum: Prov Provider Time Seen by Provider: 10:30 Date Seen: 04/22/23 Date of admission: 04/17/23 13:35 Primary care physician: Not a Local Provider Consults: 04/20/23 07:21 Consult to Infectious Diseases [CONS] Routine Comment: leukocytosis; thrombocytosis - alcoholic liver Consulting Provider: [facility] Has provider been notified: No Attending physician on discharge: Zulma Abel Anticipated date of transfer: 04/22/23 Receiving physician/facility: , Dr. Blackwell DS: Diagnosis Discharge Diagnosis (1) Portal hypertension: Status: Acute (2) Thrombocytosis: Status: Acute Problem details: platelets have been elevated for almost a month. At first attributed to acute phase reactant. not clear on etiology. needs heme/onc consult at tertiary care. (3) Leukocytosis, unspecified: Status: Acute Problem details: no fever. no evidence of acute infection. peripheral smear is pending. ID consult (via telephone) no new insight. procalcitonin elevated out of proportion of CRP elevation. BC, UC and body fluid (paracentsis) all negative to date. no emperic antibiotics other than the first admission in 03/28 we treated with ceftriaxone for SBP until cultures negative. (4) Hypercapnia with mixed acid-base disorder: Status: Resolved Problem details: contraction alkalosis; diarrhea (5) Hyperkalemia, diminished renal excretion: Status: Acute Problem details: multifactorial: large doses of potassium sparing (blocks aldactone) diuretic (spironolactone), decreased blood flood to the kidney with fluid restriction b/c lasix managing with (as a side effect) lactulose, lasix trial of lokma x 1 on 04/19/23 - decrease spironolactone dose and change furosemide dosing to IV as above - these doses given for the first time 04/22/23. Potassium today (04/22) is elevated. Give dose of Lokelma and recheck later today. (6) Hyperammonemia: Status: Acute Problem details: -lactulose b.i.d.. Ammonia level is decreasing. GI recommended not trending and shoot for 2-3 BMs a day. -no obvious encephalopathy at this point (7) Ascites due to alcoholic cirrhosis: Status: Acute Problem details: -w/liver injury pattern (hyperbilirubinemia direct and indirect) and peripheral edema + ascites, mild coagulopathy, moderate (but improving on lactulose) hyperammonemia -therapeutic paracentesis 04/17/2023; 7.7 L followed by albumin infusion. Culture pending, NTD -has established care with [facility] - Dr. Bello (hepatobiliary [facility]) is set to see him. discussed his case on 04/19 - recommended transfer - Transfer to [facility] for GI consult (8) Sinus tachycardia: Status: Acute Problem details: ECG is sinus tach. no known cardiac disease. echo normal from Mar 2023 admission. -trial propranolol ER daily, starting 04/18/2023 w/persistent hyperkalemia will keep dose as low as possible (hold for HR <110) - no known varices but with HR >120 and BP elevated - reducing risk. no known bleeding. (9) Hyponatremia: Status: Acute Problem details: will need salt restriction (for liver disease/ascites) balancing with acute on chronic hyponatremia (so far managed with 3% and DDAVP) vs our traditional fluid restriction and PO salt intake. - Worsened after holding 3% saline. Restarted that this morning with improvement in sodium again. He is now back up to 123 from 08/24 this morning. To prevent going up too quickly, hold 3% saline and DDAVP for the rest of today and recheck sodium in the morning. Will also decrease spironolactone dose and change furosemide to IV since he may not be absorbing it with massive ascites. - Slight decrease after stopping DDAVP and 3% saline. Restart 3% saline and recheck later today. (10) Alcoholic hepatitis: Status: Acute Problem details: Moderately severe with new onset jaundice/hyperbilirubinemia and elevated transaminases. Imaging (CT) on 03/29 shows no other obvious complication in the biliary tract or portal vein thrombosis. MRCP completed 04/19/23. portal hypertension; splenomegaly. 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 improving over the last several weeks - 04/22/23 stabilized Transfer Discharge Sum: Med Medications Active and Home Medications: Home Medications folic acid 1 mg tablet 1 mg PO DAILY #30 tabs 03/29/23 [Rx Confirmed 04/17/23] furosemide 40 mg tablet 120 mg (3 x 40 mg) PO DAILY@0800 #90 tabs 03/29/23 [Rx Confirmed 04/17/23] lorazepam 0.5 mg tablet 0.5 mg PO NIGHTLY PRN #30 tabs 03/29/23 [Rx Confirmed 04/17/23] multivitamin with folic acid 400 mcg tablet (Thera) 1 tab PO DAILY #30 tabs 03/29/23 [Rx Confirmed 04/17/23] omeprazole 20 mg capsule,delayed release 20 mg PO BID #60 caps 03/29/23 [Rx Confirmed 04/17/23] spironolactone 100 mg tablet 300 mg (3 x 100 mg) PO DAILY@0800 #90 tabs 03/29/23 [Rx Confirmed 04/17/23] thiamine mononitrate (vit B1) 100 mg tablet (Vitamin B-1 (mononitrate)) 250 mg (2.5 x 100 mg) PO BID #60 tabs 03/29/23 [Rx Confirmed 04/17/23] Active Medications Enoxaparin Sodium (Enoxaparin 40 Mg/0.4 Ml Inj) 40 mg SUBCUT HS [facility] Last Admin: 04/21/23 21:32 Dose: 40 mg Folic Acid (Folic Acid 1 Mg Tablet) 1 mg PO DAILY PATRICK Last Admin: 04/22/23 09:29 Dose: 1 mg Furosemide (Furosemide 10 Mg/Ml Inj) 80 mg IVP DAILY [facility] Last Admin: 04/22/23 09:30 Dose: 80 mg Sodium Chloride (3 % Sodium Chloride 500 Ml) 500 mls @ 30 mls/hr IV .[id number] [facility] Last Admin: 04/22/23 13:40 Dose: 30 mls/hr Lactulose (Lactulose 20 Gm/30 Ml) 20 gm PO BID@0900,1400 [facility] Last Admin: 04/22/23 14:12 Dose: Not Given Lorazepam (Lorazepam 0.5 Mg Tablet) 0.5 mg PO NIGHTLY PRN Last Admin: 04/21/23 21:36 Dose: 0.5 mg Melatonin (Melatonin 3 Mg Tablet) 3 - 6 mg PO HS PRN Multivitamins/Minerals (Multivitamin/Minerals 1 Tablet) 1 tab PO DAILY [facility] Last Admin: 04/22/23 09:30 Dose: 1 tab Omeprazole (Omeprazole [address]) 20 mg PO BID [facility] Last Admin: 04/22/23 09:29 Dose: 20 mg Ondansetron HCl (Ondansetron 2 Mg/Ml Inj) 4 mg IVP Q4H PRN PRN Reason: Nausea Propranolol HCl (Propranolol Er 80 Mg Cap) 80 mg PO DAILY [facility] Last Admin: 04/22/23 09:55 Dose: Not Given Sodium Chloride (Sodium Chloride 0.9 % (Flush) 10 Ml Syringe) 5 ml IVF .FLUSH PRN Sodium Chloride (Sodium Chloride 0.9 % (Flush) 10 Ml Syringe) 5 ml IVF BID [facility] Last Admin: 04/22/23 09:30 Dose: 5 ml Spironolactone (Spironolactone 100 Mg Tablet) 200 mg PO DAILY@0800 [facility] Last Admin: 04/22/23 09:28 Dose: 200 mg Thiamine HCl (Thiamine 100 Mg Tablet) 250 mg PO BID [facility] Last Admin: 04/22/23 09:28 Dose: 250 mg Tramadol HCl (Tramadol Hcl 50 Mg Tablet) 50 - 100 mg PO Q6H PRN Zolpidem Tartrate (Zolpidem 5 Mg Tablet) 5 mg PO HS PRN Last Admin: 04/21/23 21:33 Dose: 5 mg Transfer Discharge Sum: Hosp Hospital Course Hospital course: Kannan Wei is a 42 year old male with longstanding history of alcohol use who was recently diagnosed with alcoholic liver disease that included jaundice/hyperbilirubinemia, ascites, transaminitis, mild coagulopathy, hyper ammonemia who presented for worsening abdominal distention and shortness of breath along with significant peripheral edema presenting him from wearing shoes. He was admitted from the emergency room and started on diuretics. Due to ascites along with persistent sinus tachycardia and leukocytosis although without fever chills workup for spontaneous bacterial peritonitis was also pursued in he had a diagnostic paracentesis that was negative for bacterial infection. He was subsequently discharged on 03/29 and return to the ER on several occasions. He was admitted again with abdominal distension. Initially declined transfer to tertiary care. He is now agreeable and has been awaiting transfer to tertiary care for several days. He did undergo a therapeutic paracentesis and has been on spironolactone and furosemide. He has been significantly hyponatremic for which he has been on DDAVP and 3% saline intermittently. Dr. Bryant had several conversations with Dr. Bello from [facility]. He recommended this patient be transferred to tertiary care for concern of leukocytosis and thrombocytosis in the setting of alcohol liver failure with ascites. Time Spent with Patient Time attestation: Total time spent providing and/or coordinating transfer services: Exam Narrative: Exam Narrative: General: No acute distress. Awake, alert, oriented. Jaundiced. Ears: Ear canals are patent. TMs are pearly diehl bilaterally with serous fluid behind them bilaterally, no erythema, no bulging. Cardiovascular: Mildly tachycardic, regular. Respiratory: Clear to auscultation bilaterally. No wheezes or crackles. Abdomen: Markedly distended, more so than yesterday, tense, site of paracentesis on right abdomen is without induration, drainage, or erythema. Extremities: 4+ doughy edema bilaterally with doughy edema to the mid back. Const: Vital Signs, click to edit/add: Vital Signs - 24 hr 04/21/23 16:44 04/21/23 16:44 04/21/23 20:05 Temperature 97.8 F 98.2 F Pulse Rate [Pulse Oximeter] 104 H 109 H Respiratory Rate 18 18 Blood Pressure [Le ft Arm] 110/88 123/92 H Pulse Oximetry 97 97 97 Oxygen Delivery Me thod Room Air Room Air Room Air 04/21/23 21:41 04/21/23 23:02 04/22/23 03:59 Temperature 98.1 F 97.8 F Pulse Rate [Pulse Oximeter] 104 H 106 H Respiratory Rate 20 20 20 Blood Pressure [Le ft Arm] 129/83 139/94 H Pulse Oximetry 98 98 98 Oxygen Delivery Me thod Room Air Room Air Room Air 04/22/23 08:25 04/22/23 08:25 04/22/23 11:42 Temperature 99.1 F 97.9 F Pulse Rate [Pulse Oximeter] 109 H 106 H Respiratory Rate 16 18 Blood Pressure [Le ft Arm] 125/93 H 127/91 H Pulse Oximetry 95 95 96 Oxygen Delivery Me thod Room Air Room Air Room Air Transfer Discharge Sum: Data Data Completed and Pending Completed studies during hospitalization: Procedures Drainage of Peritoneal Cavity, Percutaneous Approach, Diagnostic (03/26/23) Pending studies at discharge: Paracentesis Date Date: 04/17/23 Procedure Note Procedure: Paracentesis with Ultrasound Guidance Type of paracentesis: Therapeutic Surgeon: Charissa Hernandez Indications: The patient is a 42-year-old male with cirrhosis secondary to alcohol with severe ascites. I was asked to perform a therapeutic paracentesis. Cultures will also be sent. Labs and Cytology Sent:: Yes (culture) Albumin infused: Yes (One bottle of 25% albumin) Procedure Note:: Prior to the procedure, the risks and benefits of the procedure were discussed and an informed consent was obtained. Patient identification was confirmed and TIME OUT was performed. [An ultrasound was brought onto the field and an easily accessible pocket of ascites was identified that was away from intraabdominal organs. The patient's abdomen in the right lower quadrant was prepped and draped in the usual sterile fashion. 1% Lidocaine was used to anesthetize the skin, soft tissues and peritoneum over the proposed needle insertion site. A skin incision was made with a scalpel just large enough to fit the needle. The needle with the paracentesis catheter was advanced into the abdomen and a cystic fluid was aspirated into the syringe. The needle was then withdrawn and the catheter was left in place. The catheter was then connected to the drainage tubing. 7.7 Liters of straw colored fluid was drained. This was sent to the lab for colon. Post procedure ultrasound revealed markedly reduced residual fluid. The catheter was then removed and the skin was closed with Dermabond. Patient tolerated procedure well and there were no immediate complications. Patient's vital signs were stable throughout the procedure. Because of the volume of fluid, 50 mL of 25% albumin was infused Documented By: Charissa Hernandez M.D. Signed By: <Electronically signed by Charissa Hernandez M.D.> 04/17/23 1836 Ordering Physician: Karime Recinos M.D. Date of Service: 04/19/23 Procedure(s): MR anais mason Accession Number(s): [id number] cc: Karime Recinos M.D.; Provider,Not a Local~ For Patients: As a result of the Century Cures Act, medical imaging exams and procedure reports are released immediately into your electronic medical record. You may view this report before your referring provider. If you have questions, please contact your health care provider. INDICATION: Portal hypertension, cirrhosis. TECHNIQUE: MRI and MRCP of the abdomen acquired without IV contrast. COMPARISON: CT chest, abdomen, pelvis 03/26/2023. Abdominal ultrasound 03/27/2023. FINDINGS: The liver is enlarged measuring 25.7 cm in length. There is enlargement of the left hepatic lobe and non-smooth liver contour suggesting cirrhosis. Mild diffuse hepatic steatosis. Subcentimeter T2 hyperintense lesion in the posterior right hepatic lobe (series 7, image 19). The spleen is enlarged measuring 13.7 cm in length. Small splenule. Large amount of free fluid in the upper abdomen. The gallbladder is contracted with mild wall thickening and surrounding fluid. This is likely related to underlying liver disease rather than gallbladder inflammation. No gallstones are identified. No intra or extrahepatic bile duct dilation. The common bile duct measures 2 mm in diameter without intraductal filling defect. The unenhanced pancreas, kidneys, and adrenal glands are normal in appearance. No dilation of the main pancreatic duct. No bowel dilation. Mildly prominent maren hepatis lymph nodes are likely reactive. Small left pleural effusion. Body wall edema. IMPRESSION: 1. Moderate hepatomegaly with enlargement of the left hepatic lobe and non-smooth liver contour suggesting cirrhosis. Findings of portal hypertension including splenomegaly and large volume ascites. 2. Subcentimeter T2 hyperintense lesion in the right hepatic lobe is incompletely characterized without IV contrast. This is indeterminate in the setting of cirrhosis and no definite corresponding lesion is seen on prior exams. Recommend further evaluation with contrast enhanced MRI at a clinically appropriate time. 3. Mild gallbladder wall thickening and fluid in the gallbladder fossa likely related to underlying liver disease. No biliary dilation or intraductal filling defects. 4. Small left pleural effusion and body wall edema. 5. Findings discussed with Rakan Lorenz at 3:06 p.m. on 04/19/2023. Dictated by China Elias MD @ 04/19/2023 3:08:57 PM (Electronically Signed) 04/17/2023 EKG: Sinus tachycardia, 119 beats per minute, possible left atrial enlargement, incomplete right bundle-branch block, left posterior fascicular block, possible inferior infarct, age undetermined. 04/19/2023 EKG: Normal sinus rhythm, left posterior fascicular block, 77 beats per minute. Transfer Discharge Sum: A/P Plan Functional capacity at transfer: independent ambulation Overall status at transfer: patient is not back to baseline Discharge Plan Discharge Disposition: [facility] Discharge Location: [facility] Date of Admission: 04/17/23 13:35 Attending Physician on Admission: Karime Recinos Attending Provider on Discharge: Zulma Abel Primary Care Provider: Provider,Not a Local Discharge Medications: No Action furosemide 40 mg Tablet 120 mg PO DAILY@0800 Qty: 90 0RF spironolactone 100 mg Tablet 300 mg PO DAILY@0800 Qty: 90 0RF lorazepam 0.5 mg Tablet 0.5 mg PO NIGHTLY PRNQty: 30 0RF omeprazole 20 mg Capsule,Delayed Release(Dr/Ec) 20 mg PO BID Qty: 60 0RF folic acid 1 mg Tablet 1 mg PO DAILY Qty: 30 0RF thiamine mononitrate (vit B1) [Vitamin B-1 (mononitrate)] 100 mg Tablet 250 mg PO BID Qty: 60 0RF multivitamin with folic acid [Thera] 400 mcg Tablet 1 tab PO DAILY Qty: 30 0RF Follow Up Appointments: Provider,Not a Local [Primary Care Provider] - Oxygen: No Urinary Catheter: No Services not available here: GI/hepatology
[2023-04-22 17:25] VITALS: BP 124/94; PULSE 102; RESP 18; TEMP 36.4; O2SAT 97
[2023-04-22 17:46] LABS: Chloride* 89 mmol/L (96-114); Potassium* 4.7 mmol/L (3.6-5.1)
[2023-04-22 17:49] LABS: Anion Gap 8 mEq/L (7-15); Blood Urea Nitrogen* 34 mg/dL (5-24); Carbon Dioxide* 25 mmol/L (20-32); Creatinine* 1.3 mg/dL (0.5-1.5); Est. Creatinine Clearance* 89.95; Estimated Glomerular Filt Rate 70 ml/min
[2023-04-22 17:50] LABS: Calcium* 8.5 mg/dL (8.4-10.6); Glucose* 108 mg/dL (60-115)
[2023-04-22 17:52] LABS: Sodium* 122 mmol/L (135-149)
--- NOTE | 2023-04-22 18:49 | PC.NURSE ---
Patient transferred to [facility] via [facility] at 1856. [id number] report given to Nurse Danish at [facility] - [address].
== END 2023-04-22 18:56 | disposition short-term general hospital (02) | DRG 433 ==
LOC: ED 12:50 → MEDSURG 13:31
PROVIDERS: Family Medicine; Internal Medicine; Admitting Provider Family Medicine; Emergency Provider Family Medicine; Visit Provider Family Medicine
DX: K70.31 Alcoholic cirrhosis of liver with ascites (principal); E72.20 Disorder of urea cycle metabolism, unspecified; K76.6 Portal hypertension; E87.1 Hypo-osmolality and hyponatremia; E87.3 Alkalosis; I45.2 Bifascicular block; E87.4 Mixed disorder of acid-base balance; K70.11 Alcoholic hepatitis with ascites; F10.20 Alcohol dependence, uncomplicated; E87.5 Hyperkalemia; E87.8 Other disorders of electrolyte and fluid balance, not elsewhere classified; D69.6 Thrombocytopenia, unspecified; R00.0 Tachycardia, unspecified; D75.839 Thrombocytosis, unspecified; D72.829 Elevated white blood cell count, unspecified; R60.0 Localized edema
CPT/HCPCS: 36415; 49083; 74181; 80048; 80053; 80069; 80076; 81003; 82077; 82140; 82803; 82977; 83605; 83690; 83735; 83880; 84145; 84295; 84300; 84484; 85025; 85027; 85610; 85730; 86140; 87070; 93005; 94761; 99284; 99285; A9153; A9270; J1650; J1940; J2597; J7131; P9047

== ENCOUNTER 2023-04-22 18:50 | Outpatient (CLI) | payer MEDICAID, SELFPAY | END 2023-04-22 18:51 | disposition home or self-care (01) | LOC: AMB 04-23 08:36 | PROVIDERS: Visit Provider Student in an Organized Health Care Education/Training Program | DX: K76.6 Portal hypertension (principal); K70.31 Alcoholic cirrhosis of liver with ascites; D75.839 Thrombocytosis, unspecified | CPT/HCPCS: A0425; A0428 ==

== ENCOUNTER 2023-05-10 13:32 | Outpatient (CLI) | payer MEDICAID, SELFPAY ==
[2023-05-10 13:57] VITALS: BP 128/88; PULSE 106; RESP 16; TEMP 36; O2SAT 99
--- NOTE | 2023-05-10 15:16 | P.PARA_ITS ---
Paracentesis Date Date: 05/10/23 Procedure Note Procedure: Paracentesis with Ultrasound Guidance Surgeon: Charissa Hernandez Indications: The patient is a 42-year-old male with alcoholic cirrhosis and ascites. He last underwent paracentesis approximately 3 weeks ago at [facility]. He has had accumulation of ascites and is here for repeat paracentesis. Labs and Cytology Sent:: No Albumin infused: Yes Procedure Note:: Prior to the procedure, the risks and benefits of the procedure were discussed and an informed consent was obtained. Patient identification was confirmed and TIME OUT was performed. An ultrasound was brought onto the field and an easily accessible pocket of ascites was identified that was away from intraabdominal organs. The patient's abdomen in the right lower quadrant was prepped and draped in the usual sterile fashion. 1% Lidocaine was used to anesthetize the skin, soft tissues and peritoneum over the proposed needle insertion site. A skin incision was made with a scalpel just large enough to fit the needle. The needle with the paracentesis catheter was advanced into the abdomen and a cystic fluid was aspirated into the syringe. The needle was then withdrawn and the catheter was left in place. The catheter was then connected to the drainage tubing. 6.6 Liters of straw colored fluid was drained. The catheter was then removed and the skin was closed with Dermabond. Patient tolerated procedure well and there were no immediate complications. Patient's vital signs were stable throughout the procedure 100 mL of 25% albumin was infused.. Recomendation: Discharge to home (ambulatory) and return to normal activities tomorrow. Follow up with referring provider as needed.
[2023-05-10 15:21] VITALS: BP 100/75; PULSE 95; RESP 16; O2SAT 98
[2023-05-10 15:30] VITALS: BP 106/73; PULSE 95; RESP 16; O2SAT 97
[2023-05-10] MEDS: ALBUMIN HUMAN 25% 25 GM/100 ML VIAL IVPB (15:35)
[2023-05-10 15:50] VITALS: BP 116/75; PULSE 98; RESP 16; O2SAT 98
== END 2023-05-10 16:17 | disposition home or self-care (01) ==
LOC: US 13:33
PROVIDERS: Visit Provider Surgery
DX: K70.31 Alcoholic cirrhosis of liver with ascites (principal)
CPT/HCPCS: 49083; P9047

== ENCOUNTER 2023-06-18 15:01 | Outpatient (CLI) | payer MEDICAID, SELFPAY ==
[2023-06-18] VITALS (8 sets, daily range): BP systolic 127–141; BP diastolic 89–100; PULSE 98–112; RESP 16; TEMP 36.6–36.9; O2SAT 95–99
--- NOTE | 2023-06-18 15:37 | W.PM.PARA ---
Paracentesis Date Date: 06/18/23 Procedure Note Procedure: Paracentesis with Ultrasound Guidance Type of paracentesis: Therapeutic Initial or Repeat?: Repeat Surgeon: Charissa Hernandez Indications: The patient is a 42 [id number] with ascites from cirrhosis. He has undergone paracentesis in the past. He presents for repeat paracentesis due to worsening abdominal distension. Labs and Cytology Sent:: No Albumin infused: Yes Procedure Note:: Prior to the procedure, the risks and benefits of the procedure were discussed and an informed consent was obtained. Patient identification was confirmed and TIME OUT was performed. An ultrasound was brought onto the field and an easily accessible pocket of ascites was identified that was away from intraabdominal organs. The patient's abdomen in the right lower quadrant was prepped and draped in the usual sterile fashion. 1% Lidocaine was used to anesthetize the skin, soft tissues and peritoneum over the proposed needle insertion site. A skin incision was made with a scalpel just large enough to fit the needle. The needle with the paracentesis catheter was advanced into the abdomen and a cystic fluid was aspirated into the syringe. The needle was then withdrawn and the catheter was left in place. The catheter was then connected to the drainage tubing. 9.8 Liters of straw colored fluid was drained. Post procedure ultrasound revealed minimal residual ascitic fluid. The catheter was then removed and the skin was closed with Dermabond. Patient tolerated procedure well and there were no immediate complications. Patient's vital signs were stable throughout the procedure # bottles of 25% albumin were infused. Recomendation: Discharge to home (ambulatory) and return to normal activities tomorrow. Follow up with referring provider as needed.
== END 2023-06-18 16:39 | disposition home or self-care (01) ==
LOC: US 15:01
PROVIDERS: Visit Provider Internal Medicine
DX: K70.31 Alcoholic cirrhosis of liver with ascites (principal)
CPT/HCPCS: 49083; P9047

== ENCOUNTER 2023-07-03 10:49 | Outpatient (CLI) | payer MEDICAID, SELFPAY ==
[2023-07-03] VITALS (7 sets, daily range): BP systolic 126–140; BP diastolic 61–101; PULSE 92–103; RESP 16–18; O2SAT 96–100
--- NOTE | 2023-07-03 12:52 | PM.PROC ---
Procedure Note Date Seen: 07/03/23 Will [facility] bill your pro fee for this procedure?: Yes Pre-op diagnosis: Alcoholic liver disease, Ascites Post-op diagnosis: same Procedure: Paracentesis Procedure Description: After discussion of the risks and benefits the patient was placed supine. Ultrasound guidance was used to identify the pocket of ascites with no evidence of underlying bowel and no abdominal varices. Once this was done the site was marked. The area was prepped and draped in the usual sterile fashion. Local anesthetic was used to anesthetize the skin and subcutaneous tissue down to the peritoneum. Once the peritoneum was encountered, the needle was advanced into the abdomen. This was confirmed by the aspiration of serous fluid. A skin hanny was made with an 11 blade. The paracentesis catheter was advanced into the abdominal cavity while aspirating. Once the abdominal fluid was aspirated confirming entrance into the abdomen, the needle was removed and the sheath advanced. 10,800 mL of fluid were then aspirated. Patient tolerated procedure well with no evidence of hypotension. 3 vials of 25% albumin were given to the patient to account for the large fluid shifts. The ultrasound was used to confirm successful aspiration with significantly reduced intra-abdominal fluid. The catheter was then removed, and Dermabond applied over the skin site. Patient tolerated the procedure well. Estimated blood loss 1 mL Anesthesia: local Surgeon: Alison Cordova MD Pathology: none sent Condition: stable Disposition: same day
== END 2023-07-03 13:14 | disposition home or self-care (01) ==
LOC: US 10:50 → OP CLINIC 10:52
PROVIDERS: Visit Provider Internal Medicine
DX: K70.31 Alcoholic cirrhosis of liver with ascites (principal)
CPT/HCPCS: 49083; P9047

== ENCOUNTER 2024-07-23 12:01 | Emergency (ER) | payer MEDICAID, SELFPAY ==
--- NOTE | 2024-07-23 12:11 | ED_ITS ---
HPI - General Adult General Time Seen by Provider: 12:12 Date Seen: 07/23/24 Chief complaint: Unspecified Complaint, Adult Stated complaint: Blood infection Time Seen by Provider: 07/23/24 12:11 Source: patient, RN notes reviewed and old records reviewed Mode of arrival: ambulatory Limitations: no limitations History of Present Illness HPI narrative: 43-year-old male with alcohol related cirrhosis who presents today for evaluation for positive blood culture. Patient was seen in outside facility 2 days ago after admits syncopal episode, prior to that said he had not been feeling well and has not been eating and drinking well. By report patient had hyponatremia hypokalemia there which are chronic for him but no other acute findings and was discharged, called yesterday and told that he had positive blood culture. Patient feels well with no complaints. Denies cough, chest pain, shortness of breath, nausea, vomiting, diarrhea, abdominal pain. No fevers or chills. Related Data Home Medications ?Medication ?Instructions ?Recorded ?Confirmed aspirin 81 mg tablet,delayed 81 mg PO DAILY 07/23/24 07/23/24 release (Facundo Low Dose Aspirin) Previous Rx's ?Medication ?Instructions ?Recorded folic acid 1 mg tablet 1 mg PO DAILY #30 tabs 03/29/23 furosemide 40 mg tablet 120 mg (3 x 40 mg) PO DAILY@0800 03/29/23 #90 tabs multivitamin with folic acid 400 1 tab PO DAILY #30 tabs 03/29/23 mcg tablet (Thera) omeprazole 20 mg capsule,delayed 20 mg PO BID #60 caps 03/29/23 release spironolactone 100 mg tablet 300 mg (3 x 100 mg) PO DAILY@0800 03/29/23 #90 tabs thiamine mononitrate (vit B1) 100 250 mg (2.5 x 100 mg) PO BID #60 03/29/23 mg tablet (Vitamin B-1 tabs (mononitrate)) amoxicillin 875 mg-potassium 1 tab PO BID #10 tabs 07/23/24 clavulanate 125 mg tablet doxycycline monohydrate 100 mg 100 mg PO BID #10 caps 07/23/24 capsule Allergies Allergy/AdvReac Type Severity Reaction Status Date / Time erythromycin base Allergy Verified 04/17/23 09:32 [facility] Medical History (Updated 07/23/24 @ 14:17 by Vasiliy Meza MD) Hepatorenal syndrome ?K76.7 - Hepatorenal syndrome (ICD-10) Hyponatremia ?E87.1 - Hypo-osmolality and hyponatremia (ICD-10) Alcohol use disorder ?F10.90 - Alcohol use, unspecified, uncomplicated (ICD-10) Surgical History No history of previous surgery Family History (Updated 03/26/23 @ 14:46 by Rocky Dorsey MD) Other Cardiovascular disease Social History (Updated 04/17/23 @ 13:28 by Karime Recinos MD) Narrative: He lives with his and 2 children, ages 17 and 15, in [place]. 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 This spring he gave up on the physical labor of landscaping and lawn care. He does not smoke. He reports that formally he was a heavy consumer of alcohol, and this became a problem for him, so he quit 3 years ago. Some uncertainty as to when he resumed drinking and how much he resumed drinking in the past year. What is your current living situation?: I presently have a place to live Problems where you live: no known problems Problems where you live details: N/A In the past 12 months, utilities in danger of being shut off: no In past 12 months, lack of transportation kept you from medical appts, meetings, work, or getting things needed for daily living: no In the past 12 mos, have been you worried that your food would run out before you had money to buy more?: never true In the past 12 mos, the food you bought just didn't last and you didn't have money to buy more?: never true Highest level of school completed/degree received: some college, no degree Smoking Status: Never smoker Do you use any of these nicotine containing products: None Second hand tobacco smoke exposure: No How often do you have a drink containing alcohol: never How often do you have six or more drinks on one occasion: Never AUDIT-C Alcohol total score: 0 Non-prescribed substance use: denies use How often does anyone, including family, friends and others, physically hurt you : never How often does anyone, including family, friends and others, insult or talk down to you: never How often does anyone, including family, friends and others, threaten you with harm: never How often does anyone, including family, friends and others, scream or curse at you: never service: No Exam Narrative: Exam Narrative: General: Well-developed and well-nourished, no acute distress Head: Abrasions of the left jaw and left face with some bruising of the left forehead Eyes: Pupils are equal reactive, extraocular motions intact, conjunctiva clear ENT: External nose and ears are normal, posterior pharynx without erythema or exudate Neck: No midline cervical tenderness, full spontaneous range of motion the neck, trachea midline, no adenopathy Heart: Regular rate and rhythm no murmurs or thrills Lungs: Clear to auscultation bilaterally without wheezes or crackles Abdomen: Soft, nontender, nondistended with active bowel sounds, liver edge palpated about 5 cm below the costal margin on the right Musculoskeletal: No tenderness, deformity, or edema Neurologic: Awake, alert, and oriented x3, no gross focal neurologic deficits, cranial nerves intact as tested Psych: Mood and affect are appropriate Skin: No rashes Const: Vital Signs, click to edit/add: Vital Signs - 24 hr 07/23/24 12:17 07/23/24 13:32 07/23/24 14:38 Temperature 98.9 F 98.4 F Pulse Rate [Pulse Oximeter] 108 H 101 H 103 H Respiratory Rate 20 18 18 Blood Pressure [Ri ght Upper Arm] 142/97 H 128/104 H Pulse Oximetry 99 97 98 Oxygen Delivery Me thod Room Air Room Air Room Air Course Course ED Course: Reviewed most recent primary care visit from July 21 which was follow-up for emergency department visit from July 20, no records from that emergency department visit are available in [facility] or [employer], reported that patient had hyponatremia and hypokalemia, labs that time with sodium 126 and potassium 3.2. Patient reports positive blood culture for visit. Patient has no systemic signs of infection, afebrile, borderline tachycardia in the emergency department. Labs ordered and request for medical records sent. Depending on findings on blood culture, plan for IV antibiotics and either discharge on oral antibiotics or admission for further evaluation and treatment. No abdominal pain, tenderness, or distention to suggest SBP. No cough, shortness of breath, and lungs are clear, no indication of pneumonia. No ur inary symptoms. Reevaluation(s) Time of Reevaluation #1: 12:58 Reevaluation #1: Reviewed records from most recent visit on July 20 through scan on [facility] EP[facility], patient had negative chest x-ray, normal head CT. We did white blood cell count 51090. One blood culture with many Gram-positive cocci in 1 of 2 bottles. This may represent a contaminant but will wait for updated reports. Note that provider addendum to the note from July 21 indicated the patient had Streptococcus the but I do not see the culture results in paperwork scanned. Time of Reevaluation #2: 14:14 Reevaluation #2: Labs independently interpreted by me with normal lactate, normal magnesium, negative procalcitonin, sodium 128 and potassium 3. Still waiting for records from outside facility. Vancomycin was ordered given history of MRSA and finding of gram-positive cocci in 1 bottle on blood cultures. Anticipate discharge. Time of Reevaluation #3: 15:07 Reevaluation #3: Labs independently interpreted by me with normal CBC. Still not received records from [facility]. The patient is requesting discharge. We discussed findings and plan. Patient will be started on Augmentin and doxycycline pending cultures. The chart has record of MRSA in the past but no sensitivities. Suspect the patient's positive blood culture is from contaminant but will treat until repeat cultures are completed. Did discuss admission for hyponatremia and positive bacteremia, patient declines. Vital Signs Vital signs: Initial Vital Signs Temperature 98.9 F 07/23/24 12:17 Temperature Source Temporal Artery Scan 07/23/24 12:17 Pulse Rate 108 H 07/23/24 12:17 Respiratory Rate 20 07/23/24 12:17 Blood Pressure 142/97 H 07/23/24 12:17 Blood Pressure Mean 112 H 07/23/24 12:17 Blood Pressure Position Sitting 07/23/24 12:17 Pulse Oximetry 99 07/23/24 12:17 Oxygen Delivery Method Room Air 07/23/24 12:17 Vital Signs Temperature 98.9 F 07/23/24 12:17 Pulse Rate 108 H 07/23/24 12:17 Respiratory Rate 20 07/23/24 12:17 Blood Pressure 142/97 H 07/23/24 12:17 Pulse Oximetry 99 12/18/24 12:17 Oxygen Delivery Method Room Air 07/23/24 12:17 Temperature 98.4 F 07/23/24 14:38 Pulse Rate 103 H 07/23/24 14:38 Respiratory Rate 18 07/23/24 14:38 Blood Pressure 128/104 H 07/23/24 14:38 Pulse Oximetry 98 07/23/24 14:38 Oxygen Delivery Method Room Air 07/23/24 14:38 Medications Administered Medications: Generic Name Dose Route Start Last Admin Trade Name Freq PRN Reason Stop Dose Admin Vancomycin/PEG/NADA/Lysine/Water 1.5 gm in 300 mls @ 200 mls/hr 07/23/24 14:02 07/23/24 14:16 Vancomycin 1.5 Gm/300 Ml IVPB 07/23/24 15:31 200 mls/hr ONCE ONE Administration Protocol Medical Decision Making Lab Data Labs: Lab Results 07/23/24 07/23/24 Range/Units 13:00 14:14 WBC 9.96 (4.50-11.00) K/uL RBC 3.55 L (4.30-5.90) m/uL Hgb 12.3 L (13.5-17.5) gm/dL Hct 36.3 L (37.0-53.0) % MCV 102 H (80-100) fL MCH 35 H (26-34) pg MCHC 34 (32-36) gm/dL RDW Coeff of Ellen 13.8 (11.5-15.5) % Plt Count 254 (140-440) K/uL Neut % (Auto) 74.3 H (42.0-72.0) % Lymph % (Auto) 15.7 L (20-44) % [place] % (Auto) 6.9 (0.0-11.0) % Eos % (Auto) 1.0 (0.0-7.0) % Baso % (Auto) 0.4 (0.0-3.0) % Neut # (Auto) 7.40 H (1.7-7.0) K/uL Lymph # (Auto) 1.60 (0.90-2.90) K/uL [place] # (Auto) 0.70 (0.00-0.90) K/UL Eos # (Auto) 0.10 (0.00-0.50) K/uL Baso # (Auto) 0.04 (0.00-0.30) K/uL Abs Immat Gran (auto) 0.17 (0.00-0.30) K/uL Imm/Tot Granulo (auto) 1.7 % Sodium 128 L (135-149) mmol/L Potassium 3.0 L (3.6-5.1) mmol/L Chloride 92 L (96-114) mmol/L Carbon Dioxide 28 (20-32) mmol/L Anion Gap 8 (7-15) mEq/L BUN 3 L (5-24) mg/dL Creatinine 0.8 (0.5-1.5) mg/dL Estimated Creat Clear 144.67 Estimated GFR 112 ml/min Glucose 97 (60-115) mg/dL Lactate 1.4 (0.5-1.9) mmol/L Calcium 8.5 (8.4-10.6) mg/dL Magnesium 1.7 (1.5-2.6) mg/dL Procalcitonin 0.19 (<0.50) ng/mL Lab Acknowledgement Test Added Discharge Plan Discharge Clinical Impression: Hyponatremia, Cirrhosis, Positive blood culture, Chronic hypokalemia Patient Disposition: Home, Self-Care Condition: Stable Instructions: Hyponatremia (ED), Hypokalemia (ED), Bacteremia (ED), Chronic Liver Disease (ED) Additional Instructions: Start taking magnesium and potassium as discussed Take Augmentin and doxycycline as prescribed Follow-up with your primary care provider next week If you develop fever, abdominal pain, chest pain or cough, or other symptoms of infection, return to the emergency Activity Level: Activity as Tolerated Discharge Diet: Regular Prescriptions: New amoxicillin-pot clavulanate 875-125 mg tablet 1 tab PO BID Qty: 10 0RF doxycycline monohydrate 100 mg capsule 100 mg PO BID Qty: 10 0RF No Action aspirin [Facundo Low Dose Aspirin] 81 mg tablet,delayed release (DR/EC) 81 mg PO DAILY furosemide 40 mg Tablet 120 mg PO DAILY@0800 Qty: 90 0RF spironolactone 100 mg Tablet 300 mg PO DAILY@0800 Qty: 90 0RF omeprazole 20 mg Capsule,Delayed Release(Dr/Ec) 20 mg PO BID Qty: 60 0RF folic acid 1 mg Tablet 1 mg PO DAILY Qty: 30 0RF thiamine mononitrate (vit B1) [Vitamin B-1 (mononitrate)] 100 mg Tablet 250 mg PO BID Qty: 60 0RF multivitamin with folic acid [Thera] 400 mcg Tablet 1 tab PO DAILY Qty: 30 0RF Follow Up/Referrals: Provider,Not a Local [Primary Care Provider] - Stand Alone Forms: MyHealth Info Instructions
[2024-07-23 12:17] VITALS: BP 142/97; PULSE 108; RESP 20; TEMP 37.2; O2SAT 99; BMI 28.1
[2024-07-23 13:06] LABS: Lactate* 1.4 mmol/L (0.5-1.9)
[2024-07-23 13:26] LABS: Chloride* 92 mmol/L (96-114); Sodium* 128 mmol/L (135-149)
[2024-07-23 13:29] LABS: Anion Gap 8 mEq/L (7-15); Blood Urea Nitrogen* 3 mg/dL (5-24); Calcium* 8.5 mg/dL (8.4-10.6); Carbon Dioxide* 28 mmol/L (20-32); Creatinine* 0.8 mg/dL (0.5-1.5); Est. Creatinine Clearance* 144.67; Estimated Glomerular Filt Rate 112 ml/min; Glucose* 97 mg/dL (60-115)
[2024-07-23 13:30] LABS: Magnesium* 1.7 mg/dL (1.5-2.6)
[2024-07-23 13:32] VITALS: PULSE 101; RESP 18; O2SAT 97
[2024-07-23 13:46] LABS: Procalcitonin* 0.19 ng/mL (<0.50)
[2024-07-23] MEDS: VANCOMYCIN 1.5 GM/300 ML 1.5 GM/300 ML PIGGYBACK IVPB (14:16)
[2024-07-23 14:38] VITALS: BP 128/104; PULSE 103; RESP 18; TEMP 36.9; O2SAT 98
[2024-07-23 14:48] LABS: Basophils Absolute Auto 0.04 K/uL (0.00-0.30); Basophils Percent Auto 0.4 % (0.0-3.0); Hematocrit 36.3 % (37.0-53.0); Hemoglobin* 12.3 gm/dL (13.5-17.5); Immature Granulocytes Abs Auto 0.17 K/uL (0.00-0.30); Immature Granulocytes Pct Auto 1.7 %; Lymphocytes Percent Auto 15.7 % (20-44); Mean Corpuscular HGB Conc 34 gm/dL (32-36); Mean Corpuscular Hemoglobin 35 pg (26-34); Mean Corpuscular Volume 102 fL (80-100); Monocytes Percent Auto 6.9 % (0.0-11.0); Neutrophils Percent Auto 74.3 % (42.0-72.0); Platelet Count* 254 K/uL (140-440); RDW Coefficient of Variation % 13.8 % (11.5-15.5); Red Blood Count 3.55 m/uL (4.30-5.90); White Blood Count* 9.96 K/uL (4.50-11.00)
[2024-07-23 14:52] LABS: Slide Review Reflex No
== END 2024-07-23 15:49 | disposition home or self-care (01) ==
PROVIDERS: Emergency Provider Family Medicine
DX: E87.1 Hypo-osmolality and hyponatremia (principal); K74.60 Unspecified cirrhosis of liver; R78.81 Bacteremia; E87.6 Hypokalemia
CPT/HCPCS: 36415; 80048; 83605; 83735; 84145; 85025; 87040; 96361; 96365; 99284; J3372